=== PATIENT | male | born 1975 | race Caucasian/White ===

== ENCOUNTER 2019-10-04 15:04 | Emergency (ER) | payer SELFPAY ==
[2019-10-04 15:07] VITALS: BP 141/93; PULSE 87; RESP 16; TEMP 36.8; O2SAT 94
--- NOTE | 2019-10-04 15:13 | ED_ITS ---
Entered by Alison Banerjee, acting as scribe for Mary Cabrera MD HPI - Alcohol General: Chief Complaint: Alcohol Stated Complaint: ETOH Time Seen by Provider: 10/04/19 15:10 Source: EMS and RN notes reviewed Mode of arrival: EMS Limitations: altered mental status History of Present Illness: HPI narrative: 44 yo male presents to ED under the influence of alcohol. Per EMS, the patient called [facility] and he was referred here. The patient is not responding to any questions at this time (15:14). 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 Amount of alcohol consumed: unknown Associated symptoms: Deny abdominal pain, depression, nausea or vomiting Review of Systems Const: Denies: fever, chills, body aches or change in appetite Eyes: Denies: blurry vision or eye discomfort ENMT: Denies: throat pain or dental pain Card: Denies: chest pain Resp: Denies: shortness of breath GI: Denies: abdominal pain, nausea, vomiting or diarrhea : Denies: painful urination Musc: Denies: neck pain or back pain Skin/Breast: Denies: rash Neuro: Denies: headache Psych: Denies: depression Betito/Lymph: Denies: easy bruising All/Imm: Denies: hives PFSH ED PFSH: Statuses (acute, chronic, etc) shown below reflect problem list status as previously entered and may not be historically accurate Social History Smoking and tobacco status: current every day smoker Physical Exam Const: COMMON NORMALS: oriented x3 and healthy appearing OTHER: intoxicated HENMT: COMMON NORMALS: normocephalic and head/scalp atraumatic HEAD & SCALP: normocephalic and atraumatic Eye: COMMON NORMALS: PERRL and EOMs intact bilaterally PUPIL: Yes PERRL Neck/C-Spine: COMMON NORMALS: full ROM and supple Chest: COMMONS NORMALS: inspection of chest normal and palpation of chest normal Resp: COMMON NORMALS: normal respiratory effort, no retractions, no use of accessory muscles and clear to auscultation bilaterally AUSCULTATION: clear to auscultation bilaterally Cardio: COMMON NORMALS: regular rate, regular rhythm and no murmurs RATE: regular rate RHYTHM: regular rhythm GI: COMMON NORMALS: normal to inspection, nondistended, normoactive bowel sounds, soft to palpation, non-tender and no masses PALPATION: Yes soft Extremity: COMMON NORMALS: normal to inspection and full ROM Neuro: COMMON NORMALS: oriented x3, moves all extremities and no focal motor deficits Psych: OTHER: intoxicated Skin: COMMON NORMALS: no rashes or lesions noted and no wounds GENERAL SKIN EXAM: no rashes or lesions noted Course Vital Signs: Vital signs: Vital Signs Temperature 98.3 F 10/04/19 15:07 Pulse Rate 87 10/04/19 15:07 Respiratory Rate 16 10/04/19 15:07 Blood Pressure 141/93 10/04/19 15:07 Pulse Oximetry 94 10/04/19 15:07 MDM - Alcohol MDM Narrative: Medical decision making narrative: Patient presents here with alcohol intoxication. Patient is now awake and alert and able to ambulate without any difficulty. Patient is not suicidal or homicidal. Patient is stable for discharge at this time and is getting a taxi home Lab Data: Labs: Lab Results 10/04/19 10/04/19 Range/Units 15:22 15:22 WBC 7.9 (4.0-10.0) 10^3/ uL RBC 4.51 (4.1-5.3) 10^6/u L Hgb 13.4 (11.7-16.6) g/dL Hct 40.2 L (42.0-52.0) % MCV 89.1 (80-94) fL MCH 29.7 (28.0-34.0) pg MCHC 33.3 (30.0-36.0) g/dL RDW 15.3 H (12.1-15.1) % Plt Count 357 (130-400) 10^3/c mm MPV 9.3 (7.4-10.4) fL Neut % (Auto) 70.4 % Lymph % (Auto) 21.0 % [place] % (Auto) 7.4 % Eos % (Auto) 0.3 % Baso % (Auto) 0.8 % Neut # (Auto) 5.6 (1.8-7.7) 10^3/u L Lymph # (Auto) 1.7 (0.8-4.8) 10^3/u L [place] # (Auto) 0.6 (0.2-0.9) 10^3/u L Eos # (Auto) 0.0 (0.0-0.8) 10^3/u L Baso # (Auto) 0.1 (0.0-0.1) 10^3/u L Nucleated RBC % (a uto) 0 % Nucleated RBCs # 0.0 /100WBC Sodium 144 (136-145) mmol/L Potassium 3.5 (3.5-5.1) mmol/L Chloride 104 (98-107) mmol/L Carbon Dioxide 25 (22-29) mmol/L Anion Gap 18.5 (5-19) BUN 9 (6-20) mg/dL Creatinine 0.8 (0.7-1.2) mg/dL GFR Calculation 104.5 (90-130) mL/min Glucose 138 H (74-109) mg/dL Calcium 9.1 (8.5-10.5) mg/dL Total Bilirubin 0.2 (0.15-1.2) mg/dL AST 45 H (0-40) U/L ALT 24 (0-41) U/L Alkaline Phosphata se 88 (40-130) IU/L Total Protein 7.7 (6.6-8.7) g/dL Albumin 4.8 (3.5-5.2) g/dL Globulin 2.9 (1.3-4.6) g/dL Salicylates < 0.3 L (3-10) mg/dL Acetaminophen < 5.0 L (10-30) ug/mL Ethyl Alcohol 484 H* (0-10) mg/dL Discharge Plan Discharge Patient Disposition: Home, Self-Care Clinical Impression: Alcoholic intoxication Qualifiers: Complication of substance-induced condition: uncomplicated Qualified Code(s): F10.920 - Alcohol use, unspecified with intoxication, uncomplicated Condition: Stable Discharge Orders: Discharge Order (Routine); Ordered 10/04/19 Ordered By: Mary Cabrera Referrals: Mark Wong DO [Family Provider] - 4-7 days Discharge Diet: Advance as tolerated Discharge Activity: Resume usual activity Patient Instructions: Alcohol Intoxication (ED) Discharge Date/Time: 10/04/19 20:41 Coding Level of Care Code ED Show Girl for ruy Fermni The documentation recorded by the Chriss mcfarland Valerie R accurately reflects the service I personally performed and the decisions made by me, Mary Cabrera MD Oct 04, 2019 15:04
[2019-10-04 15:29] LABS: Basophils # 0.1 10^3/uL (0.0-0.1); Basophils % 0.8 %; Eosinophils % 0.3 %; Hematocrit 40.2 % (42.0-52.0); Hemoglobin 13.4 g/dL (11.7-16.6); Lymphocytes # 1.7 10^3/uL (0.8-4.8); Mean Corpuscular HGB Conc 33.3 g/dL (30.0-36.0); Mean Corpuscular Hemoglobin 29.7 pg (28.0-34.0); Mean Corpuscular Volume 89.1 fL (80-94); Mean Platelet Volume 9.3 fL (7.4-10.4); Monocytes # 0.6 10^3/uL (0.2-0.9); Monocytes % 7.4 %; Neutrophils # 5.6 10^3/uL (1.8-7.7); Neutrophils % 70.4 %; Nucleated Red Blood Cells % 0 %; Platelet Count 357 10^3/cmm (130-400); Red Blood Count 4.51 10^6/uL (4.1-5.3); Red Cell Distribution Width 15.3 % (12.1-15.1); White Blood Count 7.9 10^3/uL (4.0-10.0)
[2019-10-04 15:43] LABS: Acetaminophen < 5.0 ug/mL (10-30); Alanine Aminotransferase 24 U/L (0-41); Albumin Level 4.8 g/dL (3.5-5.2); Alcohol Level 484 mg/dL (0-10); Alkaline Phosphatase 88 IU/L (40-130); Anion Gap 18.5 (5-19); Aspartate Amino Transferase 45 U/L (0-40); Blood Urea Nitrogen 9 mg/dL (6-20); Calcium 9.1 mg/dL (8.5-10.5); Carbon Dioxide 25 mmol/L (22-29); Chloride 104 mmol/L (98-107); Globulin 2.9 g/dL (1.3-4.6); Glomerular Filtration Rate 104.5 mL/min (90-130); Glucose 138 mg/dL (74-109); Potassium 3.5 mmol/L (3.5-5.1); Salicylate < 0.3 mg/dL (3-10); Sodium 144 mmol/L (136-145); Total Bilirubin 0.2 mg/dL (0.15-1.2); Total Protein 7.7 g/dL (6.6-8.7)
== END 2019-10-04 20:41 | disposition home or self-care (01) ==
PROVIDERS: Emergency Provider Emergency Medicine; Family Provider Psychiatry & Neurology Psychiatry
DX: F10.120 Alcohol abuse with intoxication, uncomplicated (principal); Y90.8 Blood alcohol level of 240 mg/100 ml or more; F17.210 Nicotine dependence, cigarettes, uncomplicated
CPT/HCPCS: 36415; 80053; 80307; 85025; 99282

== ENCOUNTER 2019-10-06 13:43 | Inpatient (IN) | payer SELFPAY ==
[2019-10-06 13:43] VITALS: BP 139/94; PULSE 80; RESP 18; TEMP 36.8; O2SAT 94; BMI 24.3
--- NOTE | 2019-10-06 13:50 | ED_ITS ---
Entered by Heron Gauthier, acting as scribe for Jose Ramon Bhat DO Oct 06, 2019 13:43 HPI - Chest Pain General: Chief Complaint: Chest Pain Stated Complaint: chest pain Time Seen by Provider: 10/06/19 13:56 History of Present Illness: HPI narrative: 44 yo male presents with chest pain. Pt states that he woke up 3 hours ago with chest pain. Pt states that he hasn't had any heart issues that he knows of. Pt states that he has chills. Pt smells of alcohol. Pt states that his pain worsens with palpation. Pt states that he drinks about a half-pint of alcohol a day. Patient initially made no mention of it to myself when I was examining him however after he left the room and talking to the nurse he stated he wanted to kill himself had not really formulated a plan but stated if he did not get help he would come up with a plan. He did admit to the nurse as well that he drinks heavily stated he drank up to half of 1/5/day rather than a pint. MD complaint: chest pain Onset (ago): hour(s) (3) Timing of current episode: constant Prior episodes: No Onset: during rest Pain location: right chest Quality: tightness Exacerbating factors: palpation Associated symptoms: Reports dyspnea and palpitations; Deny abdominal pain, fever(s), nausea, syncope or vomiting Treatment prior to arrival: none Review of Systems Const: Denies: fever, chills, body aches, fatigue, malaise or night sweats Eyes: Denies: change in vision or blurry vision ENMT: Denies: throat pain, oral sores/lesions, dental pain, nasal discharge or nasal congestion Card: Reports: chest pain and palpitations; Denies: irregular heart rhythm, edema, syncope, shortness of breath on exertion, shortness of breath when lying down or leg pain with exertion Resp: Reports: shortness of breath; Denies: productive cough, non-productive cough or wheezing GI: Denies: abdominal pain, nausea, vomiting, vomiting blood, coffee grounds i n vomit, difficulty swallowing, heartburn/indigestion, diarrhea, constipation, cramping, blood in stool or black tarry stool : Denies: flank pain, difficulty urinating, painful urination, urinary frequency, urinary urgency, urinary incontinence or blood in urine Musc: Denies: neck pain, back pain, extremity pain, extremity swelling, joint pain or joint swelling Skin/Breast: Denies: rash, itching or redness Neuro: Reports: headache; Denies: numbness in extremities, weakness in extremities, changes in sensation, lack of coordination, difficulty walking, frequent falls, dizziness, vertigo or confusion Psych: Reports: anxiety and depression; Denies: loss of interest, visual hallucinations, auditory hallucinations, suicidal ideation or homicidal ideation Endo: Denies: excessive urination, excessive thirst, tired all the time or cold intolerance Bteito/Lymph: Denies: easy bruising, easy bleeding, petechiae, enlarged lymph nodes or tender lymph nodes PFSH ED PFSH: Statuses (acute, chronic, etc) shown below reflect problem list status as previously entered and may not be historically accurate Social History Smoking and tobacco status: current every day smoker Physical Exam Narrative: EXAM NARRATIVE: 44-year-old male smells strongly of alcohol anxious fidgety in the exam room Const: COMMON NORMALS: average body habitus, oriented x3 and alert GENERAL APPEARANCE: cooperative, comfortable, well kempt and well developed NUTRITIONAL APPEARANCE: not obese ORIENTATION/CONSCIOUSNESS: Yes awake, Yes oriented to person and Yes oriented to place HENMT: COMMON NORMALS: normocephalic, head/scalp atraumatic, EAC's normal, TM's normal bilaterally, external nose normal, moist oral mucous membranes and oropharynx normal HEAD & SCALP: normocephalic and atraumatic NOSE: external nose normal EXTERNAL AUDITORY CANAL: EAC's normal TYMPANIC MEMBRANE: TM's normal bilaterally MOUTH: oral and palatal mucosa normal, lip normal and tongue normal THROAT: posterior oropharynx normal and tonsils normal Eye: COMMON NORMALS: PERRL, EOMs intact bilaterally, conjunctivae normal and no scleral icterus CONJUNCTIVA: Yes conjunctivae normal PUPIL: Yes PERRL Neck/C-Spine: COMMON NORMALS: full ROM, no lymphadenopathy, supple, no meningeal signs and thyroid normal THYROID: thyroid normal and asymmetrical Lymph: LYMPHATIC: no lymphadenopathy noted Chest: CHEST: Yes tenderness Resp: COMMON NORMALS: normal respiratory effort, no retractions, no use of accessory muscles and clear to auscultation bilaterally AUSCULTATION: clear t o auscultation bilaterally Cardio: COMMON NORMALS: regular rate and regular rhythm RATE: regular rate RHYTHM: regular rhythm HEART SOUNDS: no murmurs GI: COMMON NORMALS: normal to inspection, nondistended, normoactive bowel sounds, soft to palpation and no hepatosplenomegaly PALPATION: Yes soft and Yes no hepatosplenomegaly : COMMON NORMALS: Yes no CVA tenderness BLADDER/KIDNEY EXAM: Yes no CVA tenderness Back/Pelvis: COMMON NORMALS: no CVA tenderness LUMBAR SPINE/LOWER BACK: Yes normal to inspection Extremity: COMMON NORMALS: no clubbing, cyanosis or edema, no calf tenderness and no pedal edema Neuro: COMMON NORMALS: oriented x3 SENSORIUM/ORIENTATION: Yes alert, Yes oriented to person and Yes oriented to place MENINGEAL SIGNS: Yes no meningeal signs Psych: APPEARANCE: Yes well kempt Skin: COMMON NORMALS: no rashes or lesions noted and skin turgor normal GENERAL SKIN EXAM: no rashes or lesions noted and turgor normal Course ED course: Initially patient's main complaint was chest pain after we seen him he said he actually it was more suicidal ideation labs reviewed discussed with the patient is acutely intoxicated discussed Dr. Hagan of go ahead and admit the patient. Vital Signs: Vital signs: Vital Signs Temperature 98.2 F 10/10/19 12:46 Pulse Rate 52 L 10/10/19 12:46 Respiratory Rate 18 10/10/19 12:46 Blood Pressure 112/74 10/10/19 12:46 Pulse Oximetry 96 10/10/19 12:46 MDM - Chest Pain Lab Data: Labs: Lab Results 10/06/19 10/06/19 10/06/19 Range/Units 13:30 13:30 13:30 WBC 4.7 (4.0-10.0) 10^3/ uL RBC 4.92 (4.1-5.3) 10^6/u L Hgb 14.8 (11.7-16.6) g/dL Hct 43.9 (42.0-52.0) % MCV 89.2 (80-94) fL MCH 30.1 (28.0-34.0) pg MCHC 33.7 (30.0-36.0) g/dL RDW 15.2 H (12.1-15.1) % Plt Count 387 (130-400) 10^3/c mm MPV 9.5 (7.4-10.4) fL Neut % (Auto) 65.5 % Lymph % (Auto) 24.8 % [place] % (Auto) 8.3 % Eos % (Auto) 0.4 % Baso % (Auto) 0.8 % Neut # (Auto) 3.1 (1.8-7.7) 10^3/u L Lymph # (Auto) 1.2 (0.8-4.8) 10^3/u L [place] # (Auto) 0.4 (0.2-0.9) 10^3/u L Eos # (Auto) 0.0 (0.0-0.8) 10^3/u L Baso # (Auto) 0.0 (0.0-0.1) 10^3/u L Nucleated RBC % (a uto) 0 % Nucleated RBCs # 0.0 /100WBC Sodium 139 (136-145) mmol/L Potassium 3.5 (3.5-5.1) mmol/L Chloride 96 L (98-107) mmol/L Carbon Dioxide 26 (22-29) mmol/L Anion Gap 20.5 H (5-19) BUN 11 (6-20) mg/dL Creatinine 0.8 (0.7-1.2) mg/dL GFR Calculation 104.5 (90-130) mL/min Glucose 130 H (74-109) mg/dL Calcium 9.7 (8.5-10.5) mg/dL Total Bilirubin 0.3 (0.15-1.2) mg/dL AST 102 H (0-40) U/L ALT 45 H (0-41) U/L Alkaline Phosphata se 100 (40-130) IU/L Troponin T Baselin e 8 (0-15) ng/mL Troponin T 120 Min [place] (0-15) ng/mL Delta Troponin T (0-10) ABS# Total Protein 8.7 (6.6-8.7) g/dL Albumin 4.6 (3.5-5.2) g/dL Globulin 4.1 (1.3-4.6) g/dL Lipase 36 (13-60) U/L Salicylates (3-10) mg/dL Acetaminophen (10-30) ug/mL Ethyl Alcohol 333 H* (0-10) mg/dL 10/06/19 10/06/19 Range/Units 13:30 15:28 WBC (4.0-10.0) 10^3/ uL RBC (4.1-5.3) 10^6/u L Hgb (11.7-16.6) g/dL Hct (42.0-52.0) % MCV (80-94) fL MCH (28.0-34.0) pg MCHC (30.0-36.0) g/dL RDW (12.1-15.1) % Plt Count (130-400) 10^3/c mm MPV (7.4-10.4) fL Neut % (Auto) % Lymph % (Auto) % [place] % (Auto) % Eos % (Auto) % Baso % (Auto) % Neut # (Auto) (1.8-7.7) 10^3/u L Lymph # (Auto) (0.8-4.8) 10^3/u L [place] # (Auto) (0.2-0.9) 10^3/u L Eos # (Auto) (0.0-0.8) 10^3/u L Baso # (Auto) (0.0-0.1) 10^3/u L Nucleated RBC % (a uto) % Nucleated RBCs # /100WBC Sodium (136-145) mmol/L Potassium (3.5-5.1) mmol/L Chloride (98-107) mmol/L Carbon Dioxide (22-29) mmol/L Anion Gap (5-19) BUN (6-20) mg/dL Creatinine (0.7-1.2) mg/dL GFR Calculation (90-130) mL/min Glucose (74-109) mg/dL Calcium (8.5-10.5) mg/dL Total Bilirubin (0.15-1.2) mg/dL AST (0-40) U/L ALT (0-41) U/L Alkaline Phosphata se (40-130) IU/L Troponin T Baselin e (0-15) ng/mL Troponin T 120 Min [place] 9.69 (0-15) ng/mL Delta Troponin T 1.69 (0-10) ABS# Total Protein (6.6-8.7) g/dL Albumin (3.5-5.2) g/dL Globulin (1.3-4.6) g/dL Lipase (13-60) U/L Salicylates < 0.3 L (3-10) mg/dL Acetaminophen < 5.0 L (10-30) ug/mL Ethyl Alcohol (0-10) mg/dL Discharge Plan Discharge Patient Disposition: Admitted As Inpatient Admit Provider: Hector Hagan Clinical Impression: Suicidal ideation, Alcoholic intoxication, Atypical chest pain Condition: Stable Discharge Orders: Discharge Order (Routine); Ordered 10/10/19 Ordered By: Hector Hagan Referrals: Mark Wong DO [Family Provider] - Discharge Diet: Regular Discharge Activity: Resume usual activity Additional Instructions: Follow-up with an outpatient mental health provider of choice within 3-5 days of discharge, if possible and if interested. Possible resource: [facility] ([facility]) [address] [facility] [address] [place] [address] Possible resource for substance abuse treatment: [facility] ([facility]) [address] [place] [address] [facility] Meeting Schedule [address] [place], [place] Friday, Friday, Friday, Friday at [address] behind [facility] next to [employer] . at 7 p.m. Discharge Date/Time: 10/06/19 19:55 Coding Level of Care Code ED Specialist Wound Care for Chg Fwd Exam Problem Focused The documentation recorded by the Abrahan mcfarland Kialy, accurately reflects the service I personally performed and the decisions made by , Jose Ramon Bhat DO Oct 06, 2019 13:43
--- NOTE | 2019-10-06 13:59 | ECG_ITS ---
Measurements Intervals [place] Rate: 72 P: 39 [place]: 176 QRS: 25 QRSD: 98 T: 73 QT: 381 QTc: 417 SINUS RHYTHM WITH OCCASIONAL VENTRICULAR PREMATURE COMPLEXES Compared to ECG 08/22/2015 22:29:45 Ventricular premature complex(es) now present T-wave abnormality no longer present Electronically Signed On 10-06-2019 18:34:02 NEWSPAPER COPY EDITOR by Dee Collins M.D. [email or web address]
--- NOTE | 2019-10-06 14:01 | XRR_ITS ---
PROCEDURE INFORMATION: Exam: XR Chest, 1 View Exam date and time: 10/06/2019 2:30 PM Age: 44 years old Clinical indication: Chest pain; Type not specified; Additional info: Dyspnea TECHNIQUE: Imaging protocol: XR of the chest Views: 1 view. COMPARISON: No relevant prior studies available. FINDINGS: Lungs: Unremarkable. No consolidation. Pleural space: Unremarkable. No pleural effusion. No pneumothorax. Heart/Mediastinum: Unremarkable. No cardiomegaly. Bones/joints: No acute findings. XR/XR chest 1V portable [id number] IMPRESSION: No acute findings.
[2019-10-06 14:13] LABS: Basophils % 0.8 %; Eosinophils % 0.4 %; Hematocrit 43.9 % (42.0-52.0); Hemoglobin 14.8 g/dL (11.7-16.6); Lymphocytes # 1.2 10^3/uL (0.8-4.8); Lymphocytes % 24.8 %; Mean Corpuscular HGB Conc 33.7 g/dL (30.0-36.0); Mean Corpuscular Hemoglobin 30.1 pg (28.0-34.0); Mean Corpuscular Volume 89.2 fL (80-94); Mean Platelet Volume 9.5 fL (7.4-10.4); Monocytes # 0.4 10^3/uL (0.2-0.9); Monocytes % 8.3 %; Neutrophils # 3.1 10^3/uL (1.8-7.7); Neutrophils % 65.5 %; Nucleated Red Blood Cells % 0 %; Platelet Count 387 10^3/cmm (130-400); Red Blood Count 4.92 10^6/uL (4.1-5.3); Red Cell Distribution Width 15.2 % (12.1-15.1); White Blood Count 4.7 10^3/uL (4.0-10.0)
[2019-10-06 14:43] LABS: Alanine Aminotransferase 45 U/L (0-41); Albumin Level 4.6 g/dL (3.5-5.2); Alkaline Phosphatase 100 IU/L (40-130); Anion Gap 20.5 (5-19); Aspartate Amino Transferase 102 U/L (0-40); Blood Urea Nitrogen 11 mg/dL (6-20); Calcium 9.7 mg/dL (8.5-10.5); Carbon Dioxide 26 mmol/L (22-29); Chloride 96 mmol/L (98-107); Globulin 4.1 g/dL (1.3-4.6); Glomerular Filtration Rate 104.5 mL/min (90-130); Glucose 130 mg/dL (74-109); Lipase 36 U/L (13-60); Potassium 3.5 mmol/L (3.5-5.1); Sodium 139 mmol/L (136-145); Total Bilirubin 0.3 mg/dL (0.15-1.2); Total Protein 8.7 g/dL (6.6-8.7)
[2019-10-06 14:44] LABS: Troponin(5th) Baseline 8 ng/mL (0-15)
[2019-10-06 14:52] VITALS: BP 110/89; PULSE 75; O2SAT 94
[2019-10-06 14:53] LABS: Alcohol Level 333 mg/dL (0-10)
--- NOTE | 2019-10-06 14:54 | PC.NURSE ---
Pt ambulated to the rest room. Did not tolerate well. Pt stated she felt like she was about to faint upon return to pt room.
--- NOTE | 2019-10-06 14:54 | PC.NURSE ---
ETOH level 333
[2019-10-06 15:36] LABS: Acetaminophen < 5.0 ug/mL (10-30); Salicylate < 0.3 mg/dL (3-10)
--- NOTE | 2019-10-06 15:59 | ECG_ITS ---
Measurements Intervals [place] Rate: 72 P: 50 DE: 171 QRS: 6 QRSD: 96 T: 68 QT: 386 QTc: 423 SINUS RHYTHM WITH OCCASIONAL VENTRICULAR PREMATURE COMPLEXES NONSPECIFIC T-WAVE ABNORMALITY Compared to ECG 08/22/2015 22:29:45 Ventricular premature complex(es) now present T-wave abnormality still present Electronically Signed On 10-06-2019 18:38:24 SENIOR FORMULATION SCIENTIST by Dee Collins M.D. [email or web address]
[2019-10-06 16:09] LABS: Troponin 5 2HR 9.69 ng/mL (0-15); Troponin 5 2HR Delta 1.69 ABS# (0-10)
[2019-10-06 19:31] VITALS: BP 121/74; PULSE 84; RESP 16; TEMP 36.8; O2SAT 95
[2019-10-06 19:48] LABS: Troponin 5 6HR 8.91 ng/L (0-15); Troponin 5 6HR Delta 0.91 ng/L (0-12)
[2019-10-06 20:59] VITALS: BP 135/93; PULSE 87; RESP 23; TEMP 37.1; O2SAT 97
[2019-10-07 05:56] VITALS: BP 135/87; PULSE 55; RESP 16; TEMP 36.9; O2SAT 97
[2019-10-07] MEDS: folic acid 1 mg Tablet PO (08:22)
[2019-10-07] MEDS: multivitamin therapeutic Tablet 1 TAB PO (08:22)
[2019-10-07] MEDS: thiamine 100 mg Tablet PO (08:22)
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
[2019-10-07 13:35] VITALS: BP 131/79; PULSE 64; RESP 18; TEMP 36.9; O2SAT 97
[2019-10-07] MEDS: ondansetron 4 MG Tablet PO (14:11)
--- NOTE | 2019-10-07 14:11 | PC.NURSE ---
PRN ZOFRAN 4 MG GIVEN PO PER PT C/O NAUSEA. WILL CONT TO MONITOR.
--- NOTE | 2019-10-07 16:23 | PC.NURSE ---
PRN ZOFRAN EFFECTIVE NO FURTHER C/O NAUSEA
[2019-10-07] MEDS: citalopram 20 mg Tablet PO (17:20)
[2019-10-07] MEDS: nicotine 2 mg Gum BUCCAL (17:31)
[2019-10-07 20:20] VITALS: BP 125/73; PULSE 64; RESP 18; TEMP 36.9; O2SAT 98
[2019-10-08 06:00] VITALS: BP 147/80; PULSE 65; RESP 19; TEMP 36.8; O2SAT 97
[2019-10-08] MEDS: acetaminophen 325 mg Tablet 650 MG PO ×3 (07:24→20:22)
[2019-10-08] MEDS: citalopram 20 mg Tablet PO (08:42)
[2019-10-08] MEDS: folic acid 1 mg Tablet PO (08:43)
[2019-10-08] MEDS: multivitamin therapeutic Tablet 1 TAB PO (08:43)
[2019-10-08] MEDS: thiamine 100 mg Tablet PO (08:43)
[2019-10-08] MEDS: nicotine 2 mg Gum BUCCAL (13:08)
[2019-10-08 14:00] VITALS: BP 123/68; PULSE 66; RESP 20; TEMP 37; O2SAT 90
--- NOTE | 2019-10-08 14:07 | PM.NPN ---
Subjective NPU Subjective: Interval history: He presents today reporting that he feels a little less shaky. He reports that the medication is helping and he continues to be focused on adjustment in his father and now he's talking about outpatient services through [facility] or some other program while he gets back to work. We did have a significant discussion about that plan and the risk of losing one sobriety when the focus taken off of the addiction this early in recovery at this point he reports a desire to possibly discharge, stated of family member or friend while he is waiting on a check. In going back to work as absolutely sent as possible. We discussed some concerns and the risk benefits and alternatives and he is continuing to attempts to explore what is in his own best interests. We discussed the possibility of changing his sleeping medication if he does not have effective sleep tonight. Mental Status Exam MSE Comments: This is a well-nourished well-developed white male with adequate dress, grooming and eye contact. No abnormal movements except for mild psychomotor retardation. Cooperative with exam in no acute distress. Speech was decreased rate and volume. Mood described as getting better, affect congruent. Thought process organized. Thought content: Patient denied any suicidal or homicidal ideation, there were no delusions reported or noted, he denied any auditory or visual hallucinations. Attention and concentration were intact and memory appeared unreliable secondary to intoxication but none were formally tested. He is alert and oriented ?3. Insight and judgment appear fair. Vitals/I&O/Wt Last Vital Signs Temperature 98.1, pulse 71, respirations 18, pulse ox 98%, blood pressure 126/66. Data NPU : 10/06/19 13:30 10/06/19 13:30 A&P Additional A&P Information This is a 44-year-old white male with a long history of depression and anxiety with intermixed cannabis and alcohol use with no recent cannabis use but significant intoxication and alcohol use with significant consequences recently who presents with resolving intoxication and openness to resumption of mental health treatment and follow-up with drug and alcohol rehabilitation. 1. Continue current medication. 2. Continue the CIWA protocol. 3. Consider naltrexone prior to discharge. 4. Encourage individual, group and milieu therapy. 5. Continue every 15 minute checks for safety. 6. Work with Hector to get connected with an inpatient rehabilitation as available. (2) Anxiety disorder, unspecified: Involuntary Hold Information 96 Hour Hold: 96 Hour Involuntary Admission: Yes 96 Hour Hold Ending Date: 10/12/19 96 Hour Hold Ending Time: 15:57 Attestations NPU Medical Necessity Statement*: Inpatient hospitalization medically necessary and the clinically appropriate intervention at this time. We will monitor medications and titrate to effect. Likely length of stay 1-3 days. Coding Level of Care Code Acute Travel Registered Nurse Nicu for Abisai Fermin
[2019-10-08 19:48] VITALS: BP 126/66; PULSE 71; RESP 18; TEMP 36.7; O2SAT 98
[2019-10-08] MEDS: mirtazapine 30 mg Tablet PO (20:43)
[2019-10-09 05:36] VITALS: BP 117/73; PULSE 56; RESP 18; TEMP 36.6; O2SAT 96
--- NOTE | 2019-10-09 08:08 | PC.NURSE ---
Nursing Note. random safety inspection completed of patients room this morning. No contraband found.
[2019-10-09] MEDS: thiamine 100 mg Tablet PO (08:33)
[2019-10-09] MEDS: folic acid 1 mg Tablet PO (08:33)
[2019-10-09] MEDS: multivitamin therapeutic Tablet 1 TAB PO (08:33)
[2019-10-09] MEDS: citalopram 20 mg Tablet PO (08:33)
--- NOTE | 2019-10-09 10:33 | PC.NURSE ---
NURSES NOTE; CLIENT IN DAYROOM PARTICIPATING IN GROUP.
[2019-10-09 13:27] VITALS: BP 117/76; PULSE 75; RESP 18; TEMP 36.7
[2019-10-09] MEDS: acetaminophen 325 mg Tablet 650 MG PO (15:17)
--- NOTE | 2019-10-09 17:13 | PM.NPN ---
Subjective NPU Subjective: Interval history: Westley presents today continuing to move in the direction away from intense aftercare and more towards work in trying to fix his broken relationships. Long conversation about how the most important focus for home if his recovery and that he sober and re-connecting with the aspects of his life that are necessary for success yet is able fall into place. His request is for discharge at this point we discussed the risks benefits and alternatives of this decision and he understood and agreed to likely discharge tomorrow. Mental Status Exam MSE Comments: This is a well-nourished well-developed white male with adequate dress, grooming and eye contact. No abnormal movements except for resolving mild psychomotor retardation. Cooperative with exam in no acute distress. Speech was more normal rate and volume. Mood described as much better, affect congruent. Thought process organized. Thought content: Patient denied any suicidal or homicidal ideation, there were no delusions reported or noted, he denied any auditory or visual hallucinations. Attention and concentration were intact and memory appeared more reliable but none were formally tested. He is alert and oriented ?3. Insight and judgment appear fair. Vitals/I&O/Wt Last Vital Signs Temp 98.1 F 10/09/19 13:27 Pulse 75 10/09/19 13:27 Resp 18 10/09/19 13:27 BP 117/76 10/09/19 13:27 Pulse Ox 96 10/09/19 05:36 Data NPU : 10/06/19 13:30 10/06/19 13:30 A&P Additional A&P Information This is a 44-year-old white male with a long history of depression and anxiety with intermixed cannabis and alcohol use with no recent cannabis use but significant intoxication and alcohol use with significant consequences recently who presents with resolving intoxication and openness to resumption of mental health treatment and follow-up with drug and alcohol rehabilitation. 1. Continue current medication. 2 start naltrexone 50 mg by mouth daily 4. Encourage individual, group and milieu therapy. 5. Continue every 15 minute checks for safety. 6. Work with Hectro to get connected with an outpatient drug and alcohol/sober living resources. Involuntary Hold Information 96 Hour Hold: 96 Hour Involuntary Admission: Yes 96 Hour Hold Ending Date: 10/12/19 96 Hour Hold Ending Time: 15:57 Attestations NPU Medical Necessity Statement*: Inpatient hospitalization is medically necessary and the clinically appropriate intervention at this time. We will initiating medications and monitor and titrate to effect. Tentative plan for discharge tomorrow. Likely length of stay 1-2 days. Coding Level of Care Code Acute Station Gateman for Abisai Fermin
[2019-10-09] MEDS: nicotine 2 mg Gum BUCCAL (19:20)
[2019-10-09 19:54] VITALS: BP 120/78; PULSE 73; RESP 18; TEMP 36.4; O2SAT 98
[2019-10-09] MEDS: mirtazapine 30 mg Tablet PO (21:01)
[2019-10-09] MEDS: naltrexone hcl 50 mg Tablet PO (21:01)
[2019-10-09] MEDS: doxepin 10 mg Capsule PO (21:01)
[2019-10-10 06:00] VITALS: BP 112/74; PULSE 52; RESP 18; TEMP 36.8; O2SAT 96
[2019-10-10] MEDS: multivitamin therapeutic Tablet 1 TAB PO (09:16)
[2019-10-10] MEDS: naltrexone hcl 50 mg Tablet PO (09:16)
[2019-10-10] MEDS: folic acid 1 mg Tablet PO (09:16)
[2019-10-10] MEDS: citalopram 20 mg Tablet PO (09:16)
[2019-10-10] MEDS: thiamine 100 mg Tablet PO (09:40)
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
[2019-10-10 12:46] VITALS: BP 112/74; PULSE 52; RESP 18; TEMP 36.8; O2SAT 96
== END 2019-10-10 13:07 | disposition home or self-care (01) | DRG 881 ==
LOC: ER 15:28 → NP 16:41
PROVIDERS: Admitting Provider Psychiatry & Neurology Psychiatry; Emergency Provider Family Medicine; Family Provider Psychiatry & Neurology Psychiatry; Visit Provider Psychiatry & Neurology Psychiatry
DX: F32.9 Major depressive disorder, single episode, unspecified (principal); R45.851 Suicidal ideations; F41.9 Anxiety disorder, unspecified; F17.210 Nicotine dependence, cigarettes, uncomplicated; Z88.0 Allergy status to penicillin; F12.90 Cannabis use, unspecified, uncomplicated; F10.129 Alcohol abuse with intoxication, unspecified; R07.89 Other chest pain; Z79.899 Other long term (current) drug therapy
CPT/HCPCS: 12345; 36415; 71045; 80053; 80307; 83690; 84484; 85025; 93005; 99282; Q0162

== ENCOUNTER 2023-04-22 14:01 | Emergency (ER) | payer OTHER, MEDICAID, SELFPAY ==
--- NOTE | 2023-04-22 | CT_ITS ---
WS: [id number] CT HEAD NONCONTRAST HISTORY: SYMPTOMS OF ACUTE STROKE TECHNIQUE: Contiguous axial imaging performed through the brain in 2.5 mm imaging. Bone and soft tiss ue windows. Sagittal and coronal reformats reviewed. All CT scans at [facility] use at least one of these dose optimization techniques: automated exposure control; mA and/or kV adjustment per pa tient size (includes targeted exams where dose is matched to clinical indication); or iterative recon struction. DLP: 1127.05 mGy COMPARISON: None available. No acute intracranial hemorrhage, midline shift or mass effect. Mild symmetric cerebellar and cerebral atrophy with minimal small vessel ischemic disease. Ventricles: Normal size with no hydrocephalus. No inferior displacement of the cerebellar tonsils. Paranasal sinuses: As visualized are clear. Mastoid air cells: Well pneumatized. Calvarium and scalp: Skull is intact with no soft tissue edema or swelling. IMPRESSION: 1. No acute intracranial hemorrhage or edema. 2. Mild atrophy and small vessel ischemic disease. Notified Jose Ramon Bhat DO at 04/22/2023 2:31 PM.
[2023-04-22 14:10] VITALS: BP 146/107; PULSE 104; RESP 18; TEMP 36.9; O2SAT 94
--- NOTE | 2023-04-22 14:10 | ECG_ITS ---
[facility] Test Date: 2023-04-22 Pat Name: Hector Hunter Department: Room: Gender: Male [employer] Admissions Representative: : 1975 Requested By: Jose Ramon Koroma Order Number: [id number] Jeremy MD: Tracy Putnam M.D. Measurements Intervals Cecil Rate: 92 P: 52 MI: 175 QRS: 29 QRSD: 96 T: 67 QT: 335 QTc: 414 Interpretive Statements SINUS RHYTHM SEPTAL MYOCARDIAL INFARCTION , OF INDETERMINATE AGE [40+ ms Q WAVE IN V1/V2] Compared to ECG 10/06/2019 16:44:07 Myocardial infarct finding now present Ventricular premature complex(es) no longer present T-wave abnormality no longer present Electronically Signed On 04-22-2023 16:58:24 CDT by Tracy Putnam M.D. [email or web address] [email or web address]/store/[id number]
--- NOTE | 2023-04-22 14:12 | W.ED.NEUROSD ---
HPI - Neuro Symptoms/Deficit General: Chief Complaint: Neuro Symptoms/Deficit Stated Complaint: Stroke Alert Time Seen by Provider: 04/22/23 14:08 Source: patient and EMS Mode of arrival: EMS History of Present Illness: 47-year-old male presents to the emergency room via EMS as a stroke alert. A friend found him to reporting he seemed to be altered have right-sided weakness for 2 and half hours prior to calling EMS they were 30 minutes arriving here from the scene. On arrival here he has no facial asymmetry equal movements of the arms and legs. After initially denying any alcohol use he admits to having been drinking today heavily. Patient smells strongly of alcohol. He has a strong history of alcohol abuse in the past. CT done initially on arrival did not show any acute changes. Dr. Christian is present in the department seeing the patient immediately upon his return to the ED. Onset (ago): hour(s) (3) Time: 14:02 Last Observed Normal: 11:00 Timing confirmed by: other (Friend via EMS) Location: speech Severity: mild Relieving factors: none Exacerbating factors: none Associated symptoms: Deny chest pain, cough, diaphoresis, fevers/chills, headache(s), anorexia, malaise, nausea, seizures, short of breath, syncope, tingling, vertigo, vomiting or weakness Review of Systems Const: Reports: fatigue; Denies: fever(s), chills, malaise or diaphoresis Eyes: Reports: blurry vision Card: Denies: chest pain or syncope Resp: Denies: dyspnea, productive cough or non-productive cough GI: Denies: nausea or vomiting : Denies: flank pain, dysuria, urinary frequency or urinary urgency Skin/Breast: Denies: rash or pruritus Neuro: Denies: headache(s) or vertigo PFS ED PFSH: Social History Smoking and tobacco status: current every day smoker NIH stroke score NIHSS: Level Of Consciousness - 1a: 0 Level Of Consciousness Questions - 1b: One Correct (Believed to be due to alcohol use) Level Of Consciousness Commands - 1c: Both Correct Best Gaze - 2: Normal Visual Massey - 3: No Visual Loss Facial Palsy - 4: Normal Motor Arm Right - 5: No Drift Motor Arm Left - 5: No Drift Motor Leg Right - 6: No Drift Motor Leg Left - 6: No Drift Limb Ataxia - 7: Present In Two Limbs (Believed to be due to alcohol use) Sensory - 8: Normal Best Language - 9: No Aphasia Dysarthia - 10: Mild/Moderate Dysarthia (Believed to be due to alcohol use) Extinction And Inattention - 11: 0 Score: Total Score: 4 Physical Exam Const: COMMON NORMALS: no acute distress GENERAL APPEARANCE: cooperative and comfortable ORIENTATION/CONSCIOUSNESS: Yes awake HENMT: COMMON NORMALS: normocephalic, atraumatic and hearing grossly normal bilaterally HEAD & SCALP: normocephalic and atraumatic Resp: COMMON NORMALS: normal respiratory effort, No retractions, No use of accessory muscles and clear to auscultation bilaterally AUSCULTATION: clear to auscultation bilaterally Cardio: COMMON NORMALS: regular rate, regular rhythm and No murmurs present (Cardio) RATE: regular rate RHYTHM: regular rhythm GI: COMMON NORMALS: Soft to palpation and No hepatosplenomegaly present AUSCULTATION: Yes normoactive bowel sounds PALPATION: Yes Soft to palpation, No Tenderness to palpation present (GI), No Guarding due to palpation present (GI) and Yes No hepatosplenomegaly present Extremity: COMMON NORMALS: normal to inspection, capillary refill normal, no clubbing, cyanosis or edema, no calf tenderness and no pedal edema Skin: COMMON NORMALS: no rashes or lesions noted GENERAL SKIN EXAM: no rashes or lesions noted Course Vital Signs: Vital signs: Vital Signs Temperature 98.5 F 04/22/23 14:10 Pulse Rate 104 H 04/22/23 14:10 Respiratory Rate 18 04/22/23 14:10 Blood Pressure 146/107 04/22/23 14:10 Pulse Oximetry 94 04/22/23 14:10 Oxygen Delivery Me thod Room Air 04/22/23 14:10 MDM - Neuro Symptoms/Deficit Medical Decision Making Patient acutely intoxicated to the extent he has a stroke score it is mostly due to his alcohol use. He is well versed in ER visits related to his alcohol use and specifically requested thiamine and Ativan on arrival. CT of his head was negative we will discharge patient home were working on finding friends or family to give him a ride back home for his next of kin contact declined to assist. We will give him a banana bag while we are working on finding transportation arrangements. Encouraged alcohol abstinence. Patient's response indicates low probability of this. Medical Records I reviewed the patient's medical records. Lab Data I reviewed the patient's lab results. 04/22/23 14:12 04/22/23 14:12 Laboratory Results WBC 4.8 10^3/uL (4.0-10.0) 04/22/23 14:12 RBC 4.36 10^6/uL (4.1-5.3) 04/22/23 14:12 Hgb 12.9 g/dL (11.7-16.6) 04/22/23 14:12 Hct 39.5 % (42.0-52.0) L 04/22/23 14:12 MCV 90.6 fl (80-94) 04/22/23 14:12 MCH 29.6 pg (28.0-34.0) 04/22/23 14:12 MCHC 32.7 g/dL (30.0-36.0) 04/22/23 14:12 RDW 14.8 % (12.1-15.1) 04/22/23 14:12 Plt Count 401 10^3/cmm (130-400) H 04/22/23 14:12 MPV 9.0 fL (7.4-10.4) 04/22/23 14:12 Neut % (Auto) 59.5 % 04/22/23 14:12 Lymph % (Auto) 25.6 % 04/22/23 14:12 Sevier % (Auto) 7.8 % 04/22/23 14:12 Eos % (Auto) 5.0 % 04/22/23 14:12 Baso % (Auto) 1.9 % 04/22/23 14:12 Neut # (Auto) 2.84 10^3/uL (1.8-7.7) 04/22/23 14:12 Lymph # (Auto) 1.2 10^3/uL (0.8-4.8) 04/22/23 14:12 Sevier # (Auto) 0.4 10^3/uL (0.2-0.9) 04/22/23 14:12 Eos # (Auto) 0.2 10^3/uL (0.0-0.8) 04/22/23 14:12 Baso # (Auto) 0.1 10^3/uL (0.0-0.1) 04/22/23 14:12 Nucleated RBC % (auto) 0 % 04/22/23 14:12 Nucleated RBCs # 0.0 /100WBC 04/22/23 14:12 PT 12.50 SECONDS (12.1-14.9) 04/22/23 14:12 INR 0.90 (0.8-1.2) 04/22/23 14:12 APTT 27.0 SECONDS (23.9-36.7) 04/22/23 14:12 Sodium 146 mmol/L (136-145) H 04/22/23 14:12 Potassium 4.2 mmol/L (3.5-5.1) 04/22/23 14:12 Chloride 107 mmol/L (98-107) 04/22/23 14:12 Carbon Dioxide 26 mmol/L (22-29) 04/22/23 14:12 Anion Gap 17.2 (5-19) 04/22/23 14:12 BUN 15 mg/dL (6-20) 04/22/23 14:12 Creatinine 0.9 mg/dL (0.7-1.2) 04/22/23 14:12 GFR Calculation 90.1 mL/min (90-130) 04/22/23 14:12 Glucose 112 mg/dL (65-115) 04/22/23 14:12 POC Glucose 115 mg/dL (70-110) H 04/22/23 14:08 Calculated Osmolality 304 mOsm/kg (285-295) H 04/22/23 14:12 Calcium 8.7 mg/dL (8.5-10.5) 04/22/23 14:12 Total Bilirubin 0.2 mg/dL (0.15-1.2) 04/22/23 14:12 AST 28 U/L (0-40) 04/22/23 14:12 ALT 18 U/L (0-41) 04/22/23 14:12 Alkaline Phosphatase 86 U/L (40-130) 04/22/23 14:12 Total Protein 6.7 g/dL (6.6-8.7) 04/22/23 14:12 Albumin 4.3 g/dL (3.5-5.2) 04/22/23 14:12 Globulin 2.4 g/dL (1.3-4.6) 04/22/23 14:12 Ethyl Alcohol 391 mg/dL (0-10) H* 04/22/23 14:12 Discharge Plan Discharge Patient Disposition: Home Clinical Impression: Acute alcohol intoxication, Alcohol use disorder Condition: Stable Prescriptions: No Action naltrexone 50 mg tablet 50 mg PO DAILY hydroxyzine pamoate 50 mg capsule 50 mg PO QID PRN (Reason: Anxiety) pantoprazole 40 mg tablet,delayed release (DR/EC) 40 mg PO BID zolpidem 5 mg tablet 5 mg PO BEDTIME PRN (Reason: Sleep) mirtazapine 15 mg tablet 15 mg PO BEDTIME gabapentin 100 mg capsule 100 mg PO TID ondansetron 4 mg tablet,disintegrating 4 mg PO Q6H PRN (Reason: Nausea And Vomiting) Vitamin Plus Low Iron 27 mg iron- 1 mg tablet 1 tab PO DAILY Discharge Orders: Discharge ED (Routine); Ordered 04/22/23 Ordered By: Jose Ramon Bhat Referrals: Mark Wong DO [Primary Care Provider] - Discharge Diet: Usual diet Discharge Activity: Increase activity as tolerated Patient Instructions: Abuse of Alcohol (ED), Opioid Safety, Pain Management Activity Restrictions/Additional Instructions: Abstain from alcohol. Coding Level of Care Code ED Supervisor [employer] for Abisai Fermin
[2023-04-22 14:21] LABS: Basophils # 0.1 10^3/uL (0.0-0.1); Basophils % 1.9 %; Eosinophils # 0.2 10^3/uL (0.0-0.8); Hematocrit 39.5 % (42.0-52.0); Hemoglobin 12.9 g/dL (11.7-16.6); Lymphocytes # 1.2 10^3/uL (0.8-4.8); Lymphocytes % 25.6 %; Mean Corpuscular HGB Conc 32.7 g/dL (30.0-36.0); Mean Corpuscular Hemoglobin 29.6 pg (28.0-34.0); Mean Corpuscular Volume 90.6 fl (80-94); Monocytes # 0.4 10^3/uL (0.2-0.9); Monocytes % 7.8 %; Neutrophils # 2.84 10^3/uL (1.8-7.7); Neutrophils % 59.5 %; Nucleated Red Blood Cells % 0 %; Platelet Count 401 10^3/cmm (130-400); Red Blood Count 4.36 10^6/uL (4.1-5.3); Red Cell Distribution Width 14.8 % (12.1-15.1); White Blood Count 4.8 10^3/uL (4.0-10.0)
[2023-04-22] MEDS: LORazepam 2 mg/mL INJ 1 mL IVP (14:26)
[2023-04-22 14:45] LABS: Alanine Aminotransferase 18 U/L (0-41); Albumin Level 4.3 g/dL (3.5-5.2); Alkaline Phosphatase 86 U/L (40-130); Aspartate Amino Transferase 28 U/L (0-40); Blood Urea Nitrogen 15 mg/dL (6-20); Calcium 8.7 mg/dL (8.5-10.5); Carbon Dioxide 26 mmol/L (22-29); Chloride 107 mmol/L (98-107); Globulin 2.4 g/dL (1.3-4.6); Glomerular Filtration Rate 90.1 mL/min (90-130); Glucose 112 mg/dL (65-115); Osmolality Calculated 304 mOsm/kg (285-295); Sodium 146 mmol/L (136-145); Total Bilirubin 0.2 mg/dL (0.15-1.2); Total Protein 6.7 g/dL (6.6-8.7)
[2023-04-22 14:46] LABS: Alcohol Level 391 mg/dL (0-10)
[2023-04-22 14:47] LABS: Anion Gap 17.2 (5-19); Potassium 4.2 mmol/L (3.5-5.1)
--- NOTE | 2023-04-22 15:18 | PC.PHAR ---
pt unable to verify medications-medications entered are what ext shows has been filled recently-
--- NOTE | 2023-04-22 15:21 | PM.CONSULT ---
Providers/Reason For Consult Consulting Physician/Specialty*: Andrés Christian MD neurology and epilepsy Reason for Consult*: Code stroke emergency room bed #12 History of Present Illness History of Present Illness Hector Hunter is a 47 year old male with a history of alcohol abuse. Patient reports that he drank 1/5 and a half of hard liquor on 04/21/2023. Today the patient stated that he experienced acute onset of right sided numbness involving his face arm and leg with trouble speaking. The onset of his symptoms was reported to be 2-1/2 hours prior to presenting to the [facility] emergency room. In the emergency room the patient reported resolution of his symptoms. Blood sugar performed by EMS was 169 blood sugar in the [facility] emergency room was 115. In the emergency room the patient was dysarthric but his symptoms were suggestive of alcohol intoxication. Noncontrast head CT scan was obtained and revealed no acute findings. Neurological examination was obtained and NIH score =1 secondary to dysarthria which clinically was suggestive of alcohol intoxication. Therefore, patient was not a candidate for tPA and no tPA was administered. Initially the patient denied drinking alcohol but then later he admitted that he drinks alcohol. He also reports that he smokes at least 1/2 pack/day. The patient denied being on any medications. Past medical history: Alcohol abuse Drug allergies: Amoxicillin which resulted in a rash Current outpatient medications: Neurontin 100 mg p.o. 3 times daily Hydroxyzine 50 mg p.o. 4 times daily as needed Mirtazapine 15 mg p.o. nightly Naltrexone 50 mg p.o. daily Zofran 4 mg p.o. every 6 hours as needed nausea vomiting Protonix 40 mg p.o. twice daily vitamin plus low iron 1 p.o. daily Ambien 5 mg p.o. nightly as needed sleep Habits: The patient admits to heavy alcohol drinking and smoking 1/2 pack of cigarettes a day Family history: Unknown Review of Systems General: Reports: 10 or more systems reviewed and unremarkable except in HPI and below Medications/Allergies Home Medications Medication Instructions Recorded Confirmed Last Taken Type gabapentin 100 mg capsule 100 mg PO TID 04/22/23 04/22/23 Unknown History hydroxyzine pamoate 50 mg capsule 50 mg PO QID PRN Anxiety 04/22/23 04/22/23 Unknown History mirtazapine 15 mg tablet 15 mg PO BEDTIME 04/22/23 04/22/23 Unknown History naltrexone 50 mg tablet 50 mg PO DAILY 04/22/23 04/22/23 Unknown History ondansetron 4 mg disintegrating 4 mg PO Q6H PRN Nausea And Vomiting 04/22/23 04/22/23 Unknown History tablet pantoprazole 40 mg tablet,delayed 40 mg PO BID 04/22/23 04/22/23 Unknown History release vitamin with calcium 1 tab PO DAILY 04/22/23 04/22/23 Unknown History no.72-iron 27 mg-folic acid 1 mg tablet ( Vitamins Plus Low Iron) zolpidem 5 mg tablet 5 mg PO BEDTIME PRN Sleep 04/22/23 04/22/23 Unknown History Allergies Allergy/AdvReac Type Severity Reaction Status Date / Time amoxicillin Allergy ALGY-Rash Verified 04/22/23 14:11 Current Medications Generic Name Dose Route Start Last Admin Trade Name Freq PRN Reason Stop Dose Admin Lorazepam 2 mg 04/22/23 14:08 04/22/23 14:26 Lorazepam 2 Mg/Ml Inj 1 Ml IVP 2 mg PRN PRN Administration WITHDRAWAL Protocol PFSH Acute PFSH: Social History Smoking and tobacco status: current every day smoker Vitals/I&O/Wt Last Vital Signs Temp 98.5 F 04/22/23 14:10 Pulse 104 H 04/22/23 14:10 Resp 18 04/22/23 14:10 BP 146/107 04/22/23 14:10 Pulse Ox 94 04/22/23 14:10 O2 Del Method Room Air 04/22/23 14:10 Weight last 48 hrs Weight 165 lb Physical Exam Narrative: NIH score =1 secondary to dysarthria which is most likely related to alcohol abuse Blood pressure 146/107 heart rate 95 O2 saturations 95% on room air The patient is alert and oriented to person place and situation. Head atraumatic. Neck supple. Cranial nerves II through XII intact. Pupils equal round and reactive to light and accommodation. Extraocular movements intact. The patient did have horizontal nystagmus on lateral gaze bilaterally which extinguish with repeat testing of extraocular movements . Speech mildly dysarthric but understandable. Patient follows commands. There was no obvious facial weakness. Motor testing 5/5 bilaterally. Deep tendon reflexes grossly symmetrical at 1-2+. Plantar responses flexor bilaterally. There was no clonus. Sensory examination was intact to touch and gross modalities. There was no obvious ataxia involving his upper and lower extremities. Throat clear. Lungs clear. Heart regular rhythm and rate extremities were negative for clubbing cyanosis or edema bowel sounds positive abdomen soft and nontender Data 04/22/23 14:12 04/22/23 14:12 A&P Assessment and plan (1) Right sided numbness: Impression: 1. Alcohol intoxication 2. Right-sided numbness most likely related to #1, resolved Plan: 1. Thiamine 100 mg IV daily then transition to 100 mg p.o. daily thereafter to prevent Wernick's Korsakoff encephalopathy 2. Agree with current work-up and metabolic lab 3. Recommend checking magnesium level 4. Okay from neurological standpoint to use benzodiazepines such as Ativan or Valium if needed for delirium tremens or agitation 5. Recommend obtaining carotid duplex study and 2D echocardiogram to complete stroke work-up (2) Acute alcohol intoxication: (3) Alcohol use disorder: (4) Dysarthria: Consult Attestations Medical Necessity Statement: Patient evaluated by neurology for code stroke emergency department room 12 Coding Level of Care Code 19758 Diagnoses Right sided numbness R20.0 Acute alcohol intoxication F10.929 Alcohol use disorder F10.90 Dysarthria R47.1 Time Spent (min) 30
--- NOTE | 2023-04-22 15:32 | PC.NURSE ---
pt removing all monitoring equipment. states he doesn't need all of that. pt wanting to walk out. MD to room and pt asked to stay with us a while to get him to feeling better.
[2023-04-22] MEDS: folic acid 1 MG, multivitamin inj 10 ML, thiamine 100 MG in sodium chloride 0.9% 1,000 ML 252.8 MG IV (15:37)
--- NOTE | 2023-04-22 15:47 | PC.NURSE ---
pt still trying to walk out. has cigarette and strike plate attacher in hand. I told pt if he would go back to his room and get his banana bag that he would feel better and that I would also try to get him something to eat and drink. I told pt that he could not smoke in the hospital and that I would hold on to his strike plate attacher until he was ready to go. banana bag started and pt provided with some food and juice.
[2023-04-22 18:04] LABS: Glucose Point of Care 115 mg/dL (70-110)
== END 2023-04-22 18:52 | disposition home or self-care (01) ==
PROVIDERS: Emergency Provider Family Medicine; PCP Psychiatry & Neurology Psychiatry
DX: F10.929 Alcohol use, unspecified with intoxication, unspecified (principal); Y90.8 Blood alcohol level of 240 mg/100 ml or more; F17.210 Nicotine dependence, cigarettes, uncomplicated
CPT/HCPCS: 36416; 70450; 80053; 80307; 82962; 85025; 85610; 85730; 93005; 96361; 96372; 96374; 99285; J2060; J3411; J3490; J7030

== ENCOUNTER 2023-04-22 20:01 | Emergency (ER) | payer OTHER, MEDICAID, SELFPAY ==
[2023-04-22 20:03] VITALS: BP 133/93; PULSE 87; RESP 18; TEMP 36.8; O2SAT 93
--- NOTE | 2023-04-22 20:52 | W.ED.ALCOHOL ---
HPI - Alcohol General: Chief Complaint: Alcohol Stated Complaint: ETOH Time Seen by Provider: 04/22/23 20:16 History of Present Illness: 47 years old male with history of alcohol abuse presents emergency room requesting for detox patient was recently seen and evaluated in this ER few hours ago. Patient states that he went home and drank alcohol and now requesting for detox. Denies any head injury or fall since discharge. Has any chest pain, cough, vomiting or vomiting blood. Review of Systems General: Reports: 10 or more systems reviewed and unremarkable except in HPI and below PFSH ED PFSH: Social History Smoking and tobacco status: current every day smoker Physical Exam Const: GENERAL APPEARANCE: comfortable and odor of alcohol detected; not anxious and not combative HENMT: COMMON NORMALS: normocephalic, atraumatic, hearing grossly normal bilaterally, external ears normal, EAC's normal, TM's normal bilaterally, Normal external nose present, Normal nasal mucous membranes and turbinates present, moist oral mucous membranes, oropharynx normal, dentition normal and gingiva normal HEAD & SCALP: normocephalic and atraumatic NOSE: Normal external nose present and Normal nasal mucous membranes and turbinates present EXTERNAL EAR: Yes external ears normal EXTERNAL AUDITORY CANAL: EAC's normal TYMPANIC MEMBRANE: TM's normal bilaterally Neck/C-Spine: COMMON NORMALS: no JVD Chest: COMMONS NORMALS: normal inspection of the chest, normal palpation of entire chest wall, normal inspection of the breasts and normal palpation of the breasts Breast/axilla inspection: Yes normal inspection of the breasts BREAST/AXILLA PALPATION: Yes normal palpation of the breasts Resp: COMMON NORMALS: normal respiratory effort, No retractions, No use of accessory muscles, clear to auscultation bilaterally and percussion normal AUSCULTATION: clear to auscultation bilaterally PERCUSSION: percussion normal Cardio: COMMON NORMALS: no JVD, regular rate, regular rhythm, S1 normal heart sound present, S2 normal heart sound present, No gallops present (Cardio), No clicks present (Cardio), No murmurs present (Cardio), No rub (Cardio) and Peripheral pulses 2+ throughout RATE: regular rate RHYTHM: regular rhythm HEART SOUNDS: S1 normal heart sound present and S2 normal heart sound present PERIPHERAL PULSES: Peripheral pulses 2+ throughout Extremity: COMMON NORMALS: normal to inspection, full ROM, capillary refill normal, no joint enlargement, no clubbing, cyanosis or edema, no calf tenderness and no pedal edema Skin: COMMON NORMALS: no rashes or lesions noted, no wounds, turgor normal, no jaundice, no petechiae and no mottling GENERAL SKIN EXAM: no rashes or lesions noted and turgor normal Course Vital Signs: Vital signs: Vital Signs Temperature 98.2 F 04/22/23 21:18 Pulse Rate 87 04/22/23 21:18 Respiratory Rate 18 04/22/23 21:18 Blood Pressure 133/93 04/22/23 21:18 Pulse Oximetry 93 04/22/23 21:18 Oxygen Delivery Me thod Room Air 04/22/23 20:03 MDM - Alcohol Medical Decision Making Patient made comfortable in emergency room. I was able to review his recent ER records. Patient was awake alert and was able to ambulate back and forth to the bathroom. Patient was DISCHARGED. Patient be discharged home with family. Discharge Plan Discharge Patient Disposition: Home Clinical Impression: Acute alcohol intoxication Condition: Stable Prescriptions: No Action naltrexone 50 mg tablet 50 mg PO DAILY hydroxyzine pamoate 50 mg capsule 50 mg PO QID PRN (Reason: Anxiety) pantoprazole 40 mg tablet,delayed release (DR/EC) 40 mg PO BID zolpidem 5 mg tablet 5 mg PO BEDTIME PRN (Reason: Sleep) mirtazapine 15 mg tablet 15 mg PO BEDTIME gabapentin 100 mg capsule 100 mg PO TID ondansetron 4 mg tablet,disintegrating 4 mg PO Q6H PRN (Reason: Nausea And Vomiting) Vitamin Plus Low Iron 27 mg iron- 1 mg tablet 1 tab PO DAILY Discharge Orders: Discharge ED (Routine); Ordered 04/22/23 Ordered By: Robin Andrews Referrals: Mark Wong DO [Primary Care Provider] - Discharge Diet: Advance as tolerated Discharge Activity: Resume usual activity Patient Instructions: Opioid Safety, Pain Management Coding Level of Care Code ED Dry Wall Sprayer for Abisai Fermin
[2023-04-22 21:18] VITALS: BP 133/93; PULSE 87; RESP 18; TEMP 36.8; O2SAT 93
== END 2023-04-22 21:19 | disposition home or self-care (01) ==
PROVIDERS: Emergency Provider Family Medicine; PCP Psychiatry & Neurology Psychiatry
DX: F10.129 Alcohol abuse with intoxication, unspecified (principal); Y90.9 Presence of alcohol in blood, level not specified; F17.210 Nicotine dependence, cigarettes, uncomplicated
CPT/HCPCS: 99283

== ENCOUNTER 2023-04-22 21:24 | Emergency (ER) | payer OTHER, MEDICAID, SELFPAY ==
[2023-04-22 21:34] VITALS: BP 124/87; PULSE 96; RESP 18; TEMP 36.6; O2SAT 94; BMI 24.3
--- NOTE | 2023-04-22 22:55 | PC.NURSE ---
Spoke with pt extensively about plans after discharge. Pt holding cigarette and binding dyer in his hand requesting to leave. Reminded pt that he had just left ER AMA prior in the evening, then returning for a possible fall. Pt states that he has no one in [place], he is from [place] and got here by ambulance. Pt stated, Ill figure it out, Ill be ok . Pt stated in front of myself and security I don't want to kill myself, I don't want to hurt anyone . Pt called me back to his room from down the hallway I'll do what ever you want me to do, I'll stay if thats what you want . This nurse explained to pt that the Dr would likely discharge him again shortly due to not having a reason for admission. Security department aware of situation, and present in unit.
--- NOTE | 2023-04-22 23:44 | W.ED.GENADLT ---
HPI - General Adult General: Chief complaint: General Medical Stated complaint: Cant Walk\Fell Down Time Seen by Provider: 04/22/23 22:24 History of Present Illness: 39 years old male with history of alcohol abuse presents emergency room with complaints of seeking help for his alcohol abuse. Patient was discharged by me on ago for similar complaint. Patient is requesting Ativan for alcohol withdrawal even though still drinking. He denies any recent head injury or fall. No neck pain, no headache no blurry vision change in vision. Associated symptoms: Deny nausea or vomiting Review of Systems General: Reports: 10 or more systems reviewed and unremarkable except in HPI and below GI: Denies: abdominal pain, nausea, vomiting, hematemesis, coffee ground emesis, dysphagia, heartburn, early satiety, diarrhea, constipation, bloating, GI cramping, belching or excessive flatus PFSH ED PFSH: Social History Smoking and tobacco status: current every day smoker Physical Exam Const: COMMON NORMALS: no acute distress, average body habitus, patient oriented x3, no limitations, healthy appearing, alert and well nourished GENERAL APPEARANCE: odor of alcohol detected HENMT: COMMON NORMALS: normocephalic, atraumatic, hearing grossly normal bilaterally, external ears normal, EAC's normal, TM's normal bilaterally, Normal external nose present, Normal nasal mucous membranes and turbinates present, moist oral mucous membranes, oropharynx normal, dentition normal and gingiva normal HEAD & SCALP: normocephalic and atraumatic NOSE: Normal external nose present and Normal nasal mucous membranes and turbinates present EXTERNAL EAR: Yes external ears normal EXTERNAL AUDITORY CANAL: EAC's normal TYMPANIC MEMBRANE: TM's normal bilaterally Neck/C-Spine: COMMON NORMALS: no JVD Chest: COMMONS NORMALS: normal inspection of the chest, normal palpation of entire chest wall, normal inspection of the breasts and normal palpation of the breasts Breast/axilla inspection: Yes normal inspection of the breasts BREAST/AXILLA PALPATION: Yes normal palpation of the breasts Cardio: COMMON NORMALS: no JVD, regular rate, regular rhythm, S1 normal heart sound present, S2 normal heart sound present, No gallops present (Cardio), No clicks present (Cardio), No murmurs present (Cardio), No rub (Cardio) and Peripheral pulses 2+ throughout RATE: regular rate RHYTHM: regular rhythm HEART SOUNDS: S1 normal heart sound present and S2 normal heart sound present PERIPHERAL PULSES: Peripheral pulses 2+ throughout Neuro: COMMON NORMALS: patient oriented x3 SENSORIUM/ORIENTATION: Yes alert Psych: COMMON NORMALS: mental status grossly normal, Normal thought process present, cooperative, normal affect, speech normal, activity/motor behavior normal, denies hallucinations, denies homicidal ideation and denies suicidal ideation SPEECH: Yes normal speech THOUGHT PROCESS: Normal thought process present Course Vital Signs: Vital signs: Vital Signs Temperature 97.8 F 04/22/23 21:34 Pulse Rate 96 04/22/23 21:34 Respiratory Rate 18 04/22/23 21:34 Blood Pressure 124/87 04/22/23 21:34 Pulse Oximetry 94 04/22/23 21:34 Oxygen Delivery Me thod Room Air 04/22/23 21:34 MDM - General Adult Medical Decision Making Patient was monitored over 2 hours. Remained stable within acute distress. Patient is awake and alert x3. Patient like to be discharged home. Differential Diagnosis Alcohol intoxication, drug abuse, electrolyte abnormalities, Discharge Plan Discharge Patient Disposition: Home Clinical Impression: Alcohol use disorder, Acute alcohol intoxication Condition: Stable Prescriptions: No Action naltrexone 50 mg tablet 50 mg PO DAILY hydroxyzine pamoate 50 mg capsule 50 mg PO QID PRN (Reason: Anxiety) pantoprazole 40 mg tablet,delayed release (DR/EC) 40 mg PO BID zolpidem 5 mg tablet 5 mg PO BEDTIME PRN (Reason: Sleep) mirtazapine 15 mg tablet 15 mg PO BEDTIME gabapentin 100 mg capsule 100 mg PO TID ondansetron 4 mg tablet,disintegrating 4 mg PO Q6H PRN (Reason: Nausea And Vomiting) Vitamin Plus Low Iron 27 mg iron- 1 mg tablet 1 tab PO DAILY Discharge Orders: Discharge ED (Routine); Ordered 04/22/23 Ordered By: Robin Andrews Discharge Diet: Advance as tolerated Discharge Activity: Resume usual activity Patient Instructions: Opioid Safety, Pain Management Coding Level of Care Code ED Cylinder Tester for Abisai Fermin
--- NOTE | 2023-04-23 01:49 | PC.NURSE ---
Pt up out of room requesting to leave again. Pt walking around department despite being told not to several times earlier. Pt states that he is feeling better and wants to leave. Pt signed discharge paperwork and departed out of WR outside on foot. Pt does not appear intoxicated at this time and is able to walk without difficulty and talk without slurring.
[2023-04-23 01:50] VITALS: BP 124/87; PULSE 96; RESP 18; TEMP 36.6; O2SAT 94
== END 2023-04-23 01:51 | disposition home or self-care (01) ==
PROVIDERS: Emergency Provider Family Medicine
DX: F10.129 Alcohol abuse with intoxication, unspecified (principal)
CPT/HCPCS: 99281

== ENCOUNTER 2023-04-25 14:57 | Emergency (ER) | payer OTHER, MEDICAID, SELFPAY ==
[2023-04-25 14:59] VITALS: BP 131/82; PULSE 103; RESP 18; O2SAT 93
--- NOTE | 2023-04-25 15:07 | ED_ITS ---
HPI - Alcohol General: Chief Complaint: Alcohol Stated Complaint: etoh Time Seen by Provider: 04/25/23 14:59 History of Present Illness: Presents to the ER today for alcohol abuse. Patient states he wants help he wants us to detox him for 2 or 3 days so he can eat boiler cleaner and then go to [facility] for rehab. Patient says he normally drinks about a gallon of vodka a day and today's he that he is only about a half a pint. She has been drinking this much for many years. Review of Systems General: Reports: 10 or more systems reviewed and unremarkable except in HPI and below PFSH ED PFSH: Social History Smoking and tobacco status: current every day smoker Physical Exam Const: COMMON NORMALS: no acute distress, average body habitus, patient oriented x3, no limitations, healthy appearing, alert and well nourished HENMT: COMMON NORMALS: normocephalic, atraumatic, hearing grossly normal bilaterally, external ears normal, Normal external nose present and moist oral mucous membranes HEAD & SCALP: normocephalic and atraumatic NOSE: Normal external nose present EXTERNAL EAR: Yes external ears normal Neck/C-Spine: COMMON NORMALS: full ROM, no lymphadenopathy, supple, no meningeal signs, no JVD and Thyroid normal THYROID: Thyroid normal Chest: COMMONS NORMALS: normal inspection of the chest and normal palpation of entire chest wall Resp: COMMON NORMALS: normal respiratory effort, No retractions, No use of accessory muscles and clear to auscultation bilaterally AUSCULTATION: clear to auscultation bilaterally Cardio: COMMON NORMALS: no JVD, regular rate, regular rhythm, S1 normal heart sound present, S2 normal heart sound present, No gallops present (Cardio), No clicks present (Cardio), No murmurs present (Cardio) and No rub (Cardio) RATE: regular rate RHYTHM: regular rhythm HEART SOUNDS: S1 normal heart sound present and S2 normal heart sound present GI: COMMON NORMALS: Normal to inspection, nondistended, normoactive bowel sounds present Neuro: COMMON NORMALS: patient oriented x3 SENSORIUM/ORIENTATION: Yes alert MENINGEAL SIGNS: Yes no meningeal signs Course Vital Signs: Vital signs: Vital Signs Pulse Rate 103 H 04/25/23 14:59 Respiratory Rate 18 04/25/23 14:59 Blood Pressure 131/82 04/25/23 14:59 Pulse Oximetry 93 04/25/23 14:59 Oxygen Delivery Me thod Room Air 04/25/23 14:59 MDM - Alcohol Medical Decision Making Labs was performed which included an alcohol 359 approximately and urine which showed benzos and marijuana. Patient was given 1 L normal saline during which she went to sleep. Anticipate patient sobering up and discharging her from the ER. Differential Diagnosis Likely alcohol intoxication; Unlikely alcohol withdrawal delirium, hypomagnesemia, alcohol ketoacidosis, alcohol withdrawal syndrome or alcohol withdrawal seizure Medical Records I reviewed the patient's medical records. Lab Data I reviewed the patient's lab results. 04/25/23 15:19 04/25/23 15:19 Laboratory Results WBC 5.6 10^3/uL (4.0-10.0) 04/25/23 15:19 RBC 4.36 10^6/uL (4.1-5.3) 04/25/23 15:19 Hgb 13.3 g/dL (11.7-16.6) 04/25/23 15:19 Hct 40.2 % (42.0-52.0) L 04/25/23 15:19 MCV 92.2 fl (80-94) 04/25/23 15:19 MCH 30.5 pg (28.0-34.0) 04/25/23 15:19 MCHC 33.1 g/dL (30.0-36.0) 04/25/23 15:19 RDW 14.7 % (12.1-15.1) 04/25/23 15:19 Plt Count 302 10^3/cmm (130-400) 04/25/23 15:19 MPV 9.3 fL (7.4-10.4) 04/25/23 15:19 Neut % (Auto) 69.6 % 04/25/23 15:19 Lymph % (Auto) 20.1 % 04/25/23 15:19 [place] % (Auto) 6.8 % 04/25/23 15:19 Eos % (Auto) 2.2 % 04/25/23 15:19 Baso % (Auto) 1.1 % 04/25/23 15:19 Neut # (Auto) 3.87 10^3/uL (1.8-7.7) 04/25/23 15:19 Lymph # (Auto) 1.1 10^3/uL (0.8-4.8) 04/25/23 15:19 Pine # (Auto) 0.4 10^3/uL (0.2-0.9) 04/25/23 15:19 Eos # (Auto) 0.1 10^3/uL (0.0-0.8) 04/25/23 15:19 Baso # (Auto) 0.1 10^3/uL (0.0-0.1) 04/25/23 15:19 Nucleated RBC % (auto) 0 % 04/25/23 15:19 Nucleated RBCs # 0.0 /100WBC 04/25/23 15:19 Sodium 142 mmol/L (136-145) 04/25/23 15:19 Potassium 3.8 mmol/L (3.5-5.1) 04/25/23 15:19 Chloride 104 mmol/L (98-107) 04/25/23 15:19 Carbon Dioxide 24 mmol/L (22-29) 04/25/23 15:19 Anion Gap 17.8 (5-19) 04/25/23 15:19 BUN 9 mg/dL (6-20) 04/25/23 15:19 Creatinine 0.6 mg/dL (0.7-1.2) L 04/25/23 15:19 GFR Calculation 143.8 mL/min (90-130) H 04/25/23 15:19 Glucose 100 mg/dL (65-115) 04/25/23 15:19 Calculated Osmolality 293 mOsm/kg (285-295) 04/25/23 15:19 Calcium 9.1 mg/dL (8.5-10.5) 04/25/23 15:19 Total Bilirubin 0.2 mg/dL (0.15-1.2) 04/25/23 15:19 AST 31 U/L (0-40) 04/25/23 15:19 ALT 17 U/L (0-41) 04/25/23 15:19 Alkaline Phosphatase 88 U/L (40-130) 04/25/23 15:19 Total Protein 7.4 g/dL (6.6-8.7) 04/25/23 15:19 Albumin 4.4 g/dL (3.5-5.2) 04/25/23 15:19 Globulin 3.0 g/dL (1.3-4.6) 04/25/23 15:19 Urine Color Yellow (Yellow) 04/25/23 15:19 Urine Appearance Clear (CLEAR) 04/25/23 15:19 Urine pH 5 (5-7) 04/25/23 15:19 Ur Specific [place] 1.010 (1.005-1.030) 04/25/23 15:19 Urine Protein Neg (Negative) 04/25/23 15:19 Urine Glucose (UA) Norm (Normal) 04/25/23 15:19 Urine Ketones Negative (Negative) 04/25/23 15:19 Urine Blood Neg (Negative) 04/25/23 15:19 Urine Nitrate Negative (Negative) 04/25/23 15:19 Urine Bilirubin Neg (Negative) 04/25/23 15:19 Urine Urobilinogen Norm mg/dL (Negative) 04/25/23 15:19 Ur Leukocyte Esterase Negative (Negative) 04/25/23 15:19 Salicylates < 0.3 mg/dL (3-10) L 04/25/23 15:19 Urine Opiates Screen Negative ng/mL (Negative) 04/25/23 15:19 Acetaminophen < 5.0 ug/mL (10-30) L 04/25/23 15:19 Ur Barbiturates Screen Negative ng/mL (Negative) 04/25/23 15:19 Ur Phencyclidine Scrn Negative ng/mL (Negative) 04/25/23 15:19 Ur Amphetamines Screen Negative ng/mL (Negative) 04/25/23 15:19 U Benzodiazepines Scrn Positive ng/mL (Negative) H 04/25/23 15:19 Urine Cocaine Screen Negative ng/mL (Negative) 04/25/23 15:19 U Marijuana (THC) Screen Positive ng/mL (Negative) H 04/25/23 15:19 Ethyl Alcohol 359 mg/dL (0-10) H* 04/25/23 15:19 Discharge Plan Discharge Patient Disposition: Home Clinical Impression: Alcoholic intoxication Qualifiers: Complication of substance-induced condition: uncomplicated Qualified Code(s): F10.920 - Alcohol use, unspecified with intoxication, uncomplicated Condition: Stable Prescriptions: No Action naltrexone 50 mg tablet 50 mg PO DAILY hydroxyzine pamoate 50 mg capsule 50 mg PO QID PRN (Reason: Anxiety) pantoprazole 40 mg tablet,delayed release (DR/EC) 40 mg PO BID zolpidem 5 mg tablet 5 mg PO BEDTIME PRN (Reason: Sleep) mirtazapine 15 mg tablet 15 mg PO BEDTIME gabapentin 100 mg capsule 100 mg PO TID ondansetron 4 mg tablet,disintegrating 4 mg PO Q6H PRN (Reason: Nausea And Vomiting) Vitamin Plus Low Iron 27 mg iron- 1 mg tablet 1 tab PO DAILY Discharge Orders: Discharge ED (Routine); Ordered 04/25/23 Ordered By: Augie Londono Referrals: Mark Wong DO [Primary Care Provider] - 1 week Patient Instructions: Alcohol Intoxication (ED) Activity Restrictions/Additional Instructions: Please follow-up with your family practice doctor within 7 days or as needed. Coding Level of Care Code ED Historic Sites Registrar for Abisai Fermin
[2023-04-25 15:33] LABS: Add Urine Microscopic? NO; Charge for UA Resulting for Rev
[2023-04-25 15:34] LABS: Basophils # 0.1 10^3/uL (0.0-0.1); Basophils % 1.1 %; Eosinophils # 0.1 10^3/uL (0.0-0.8); Eosinophils % 2.2 %; Hematocrit 40.2 % (42.0-52.0); Hemoglobin 13.3 g/dL (11.7-16.6); Lymphocytes # 1.1 10^3/uL (0.8-4.8); Lymphocytes % 20.1 %; Mean Corpuscular HGB Conc 33.1 g/dL (30.0-36.0); Mean Corpuscular Hemoglobin 30.5 pg (28.0-34.0); Mean Corpuscular Volume 92.2 fl (80-94); Mean Platelet Volume 9.3 fL (7.4-10.4); Monocytes # 0.4 10^3/uL (0.2-0.9); Monocytes % 6.8 %; Neutrophils # 3.87 10^3/uL (1.8-7.7); Neutrophils % 69.6 %; Nucleated Red Blood Cells % 0 %; Platelet Count 302 10^3/cmm (130-400); Red Blood Count 4.36 10^6/uL (4.1-5.3); Red Cell Distribution Width 14.7 % (12.1-15.1); White Blood Count 5.6 10^3/uL (4.0-10.0)
[2023-04-25 15:43] LABS: Bilirubin Urine Neg (Negative); Blood Urine Neg (Negative); Glucose Urine UA Norm (Normal); Ketones Urine Negative (Negative); Leukocyte Esterase Urine Negative (Negative); Nitrate Urine Negative (Negative); Protein Urine Neg (Negative); Urine Appearance Clear (CLEAR); Urine Color Yellow (Yellow); Urobilinogen Urine Norm (Negative); pH Urine 5 (5-7)
[2023-04-25 15:51] LABS: Amphetamines Screen Urine Negative (Negative); Barbiturates Screen Urine Negative (Negative); Benzodiazepines Screen Urine Positive (Negative); Cocaine Screen Urine Negative (Negative); Opiate Screen Urine Negative (Negative); PCP Screen Urine Negative (Negative); THC Screen Urine Positive (Negative)
[2023-04-25 15:53] LABS: Acetaminophen < 5.0 ug/mL (10-30); Alanine Aminotransferase 17 U/L (0-41); Albumin Level 4.4 g/dL (3.5-5.2); Alkaline Phosphatase 88 U/L (40-130); Anion Gap 17.8 (5-19); Aspartate Amino Transferase 31 U/L (0-40); Blood Urea Nitrogen 9 mg/dL (6-20); Calcium 9.1 mg/dL (8.5-10.5); Carbon Dioxide 24 mmol/L (22-29); Chloride 104 mmol/L (98-107); Glomerular Filtration Rate 143.8 mL/min (90-130); Glucose 100 mg/dL (65-115); Osmolality Calculated 293 mOsm/kg (285-295); Potassium 3.8 mmol/L (3.5-5.1); Salicylate < 0.3 mg/dL (3-10); Sodium 142 mmol/L (136-145); Total Bilirubin 0.2 mg/dL (0.15-1.2); Total Protein 7.4 g/dL (6.6-8.7)
[2023-04-25 15:54] LABS: Alcohol Level 359 mg/dL (0-10)
--- NOTE | 2023-04-25 16:04 | PC.PHAR ---
pt unable to verify medications pt states he hasnt been taking his meds-medications entered are what ext shows has been filled recently
[2023-04-25] MEDS: sodium chloride 0.9% 1,000 ML 999 ML IV (16:20)
== END 2023-04-25 21:18 | disposition home or self-care (01) ==
PROVIDERS: Emergency Provider Emergency Medicine; PCP Psychiatry & Neurology Psychiatry
DX: F10.129 Alcohol abuse with intoxication, unspecified (principal); Y90.8 Blood alcohol level of 240 mg/100 ml or more
CPT/HCPCS: 36415; 80053; 80306; 80307; 81003; 85025; 96361; 96374; 99284; J3411; J7030

== ENCOUNTER 2023-04-26 00:51 | Emergency (ER) | payer MEDICAID, SELFPAY ==
[2023-04-26 00:53] VITALS: BP 156/92; PULSE 72; RESP 16; TEMP 36.8; O2SAT 98; BMI 22.2
[2023-04-26 02:49] VITALS: PULSE 75; RESP 16; O2SAT 95
--- NOTE | 2023-04-26 16:58 | W.ED.ALCOHOL ---
HPI - Alcohol General: Chief Complaint: Alcohol Stated Complaint: ETOH Time Seen by Provider: 04/26/23 01:10 Source: patient, EMS and police History of Present Illness: 47 year old gentleman who was seen in the last 12 hours and discharged. He was intoxicated with alcohol at that time, allowed to sober up, and discharge. He is brought in by a food trades assistants's deputy found in the [employer] parking lot next to ?a pile of vomit?. The patient told the deputy that he may need to go back to the emergency department. He denies suicidality. He told the nursing staff that he may need to go to rehab. He has no other symptoms. MD complaint: alcohol intoxication Last drink: Just [employer] Chronic alcohol use: Yes Previous visits for alcohol intoxication: Yes Recent trauma: No Associated symptoms: Reports vomiting Review of Systems GI: Reports: vomiting [facility] ED PFSH: Social History Smoking and tobacco status: current every day smoker Physical Exam Const: COMMON NORMALS: no acute distress GENERAL APPEARANCE: cooperative, disheveled, lethargic and odor of alcohol detected; not ill appearing ORIENTATION/CONSCIOUSNESS: Yes lethargic HENMT: COMMON NORMALS: normocephalic, atraumatic and Normal external nose present HEAD & SCALP: normocephalic and atraumatic FACE & SINUS: normal facial exam and face symmetric NOSE: Normal external nose present Eye: COMMON NORMALS: Equal, round and reactive pupils present and EOMs intact bilaterally PUPIL: Yes Equal, round and reactive pupils present Neck/C-Spine: GENERAL: Yes trachea midline Chest: CHEST: Yes Symmetrical chest wall rise Resp: COMMON NORMALS: normal respiratory effort, No retractions, No use of accessory muscles and clear to auscultation bilaterally AUSCULTATION: clear to auscultation bilaterally Cardio: COMMON NORMALS: regular rate and regular rhythm RATE: regular rate RHYTHM: regular rhythm GI: COMMON NORMALS: Normal to inspection, nondistended, normoactive bowel sounds present Extremity: COMMON NORMALS: no pedal edema Neuro: IRENE COMA SCALE: document GCS findings Irene coma scale eye opening: Spontaneous [place] coma scale verbal response: Orientated [place] coma scale motor response: Obey commands [place] coma scale total score: 15 SENSORIUM/ORIENTATION: Yes lethargic SENSORY EXAM: Yes extremities (intact) Psych: COMMON NORMALS: speech normal SPEECH: Yes normal speech Skin: COMMON NORMALS: no rashes or lesions noted GENERAL SKIN EXAM: no rashes or lesions noted Course Vital Signs: Vital signs: Vital Signs Temperature 98.3 F 04/26/23 00:53 Pulse Rate 75 04/26/23 02:49 Respiratory Rate 16 04/26/23 02:49 Blood Pressure 156/92 04/26/23 00:53 Pulse Oximetry 95 04/26/23 02:49 Oxygen Delivery Me thod Room Air 04/26/23 00:53 MDM - Alcohol Medical Decision Making This patient was brought in by a food trades assistants's deputy with good intentions. The patient is not suicidal, his vitals are stable, he exhibits no sign of a medical problem. he is simply intoxicated with alcohol. He has walked in the ER several times, getting up to urinate and coming back on his own. He remains functional. He has not vomited since he has been here. We do not provide rehab services at this facility. He will be discharged. Medically, he is stable. Discharge Plan Discharge Patient Disposition: Home Clinical Impression: Alcoholic intoxication Condition: Stable Prescriptions: No Action naltrexone 50 mg tablet 50 mg PO DAILY hydroxyzine pamoate 50 mg capsule 50 mg PO QID PRN (Reason: Anxiety) pantoprazole 40 mg tablet,delayed release (DR/EC) 40 mg PO BID zolpidem 5 mg tablet 5 mg PO BEDTIME PRN (Reason: Sleep) mirtazapine 15 mg tablet 15 mg PO BEDTIME gabapentin 100 mg capsule 100 mg PO TID ondansetron 4 mg tablet,disintegrating 4 mg PO Q6H PRN (Reason: Nausea And Vomiting) Vitamin Plus Low Iron 27 mg iron- 1 mg tablet 1 tab PO DAILY Discharge Orders: Discharge ED (Routine); Ordered 04/26/23 Ordered By: Torey Kumar Referrals: Mark Wong DO [Primary Care Provider] - Patient Instructions: Alcohol Intoxication (DC) Coding Level of Care Code ED Tester [employer] for Abisai Fermin
== END 2023-04-26 02:50 | disposition home or self-care (01) ==
PROVIDERS: Emergency Provider Emergency Medicine; PCP Psychiatry & Neurology Psychiatry
DX: F10.129 Alcohol abuse with intoxication, unspecified (principal); F17.210 Nicotine dependence, cigarettes, uncomplicated
CPT/HCPCS: 99281

== ENCOUNTER 2023-04-26 07:55 | Emergency (ER) | payer OTHER, MEDICAID, SELFPAY ==
[2023-04-26 08:02] VITALS: BP 139/89; PULSE 89; RESP 14; O2SAT 94
--- NOTE | 2023-04-26 08:15 | PC.PHAR ---
pt unable to verify medications-medications entered are from what shows has been filled recently on ext med history-pt was here on 04/25/23 pt stated then that he wasnt taking any of his medications
--- NOTE | 2023-04-26 08:17 | CTR_ITS ---
PROCEDURE INFORMATION: Exam: CT Head Without Contrast Exam date and time: 04/26/2023 8:42 AM Age: 47 years old Clinical indication: Other: ETOH; Additional info: Altered mental status TECHNIQUE: Imaging protocol: Computed tomography of the head without contrast. Radiation optimization: All CT scans at this facility use at least one of these dose optimization techniques: automated exposure control; mA and/or kV adjustment per patient size (includes targeted exams where dose is matched to clinical indication); or iterative reconstruction. REPORTING DATA: Count of CT and Cardiac NM exams in prior 12 months: This patient has received [address] and 0 known cardiac nuclear medicine studies in the 12 months prior to the current study. COMPARISON: CT head thrombolytic [id number] 04/22/2023 2:00 PM RADIATION DOSE METRICS: Total DLP (mGy-cm): 1063.04 FINDINGS: Brain: Mild cerebral atrophy. No hemorrhage. Preserved dominguez-white matter differentiation. Mild scattered bilateral cerebral white matter hypodensities, stable. No mass effect. Cerebral ventricles: Ventricles are in proportion to the degree of atrophy. Paranasal sinuses: Visualized sinuses are unremarkable. No fluid levels. Mastoid air cells: Visualized mastoid air cells are well aerated. Bones/joints: Unremarkable. No acute fracture. Soft tissues: Unremarkable. CT/CT head wo con* [id number] IMPRESSION: 1. No acute intracranial abnormality. 2. Stable mild scattered nonspecific cerebral white matter hypodensities.
--- NOTE | 2023-04-26 08:17 | XRR_ITS ---
PROCEDURE INFORMATION: Exam: XR Chest Exam date and time: 04/26/2023 8:36 AM Age: 47 years old Clinical indication: Other: ETOH; Additional info: Altered mental status TECHNIQUE: Imaging protocol: Radiologic exam of the chest. Views: 1 view. COMPARISON: CR XR chest 1V portable [id number] 10/06/2019 2:20 PM FINDINGS: Lungs: Unremarkable. No consolidation. Pleural spaces: Unremarkable. No pleural effusion. No pneumothorax. Heart/Mediastinum: No cardiomegaly. Accentuation of the ascending aorta silhouette. Bones/joints: No acute fracture. Stable sequela of right AC joint injury and mild bilateral acromioclavicular joint arthropathy. XR/XR chest 1V portable [id number] IMPRESSION: 1. No acute findings. 2. Accentuation of the ascending thoracic aorta silhouette may be on the basis of tortuosity versus dilatation.
--- NOTE | 2023-04-26 08:20 | W.ED.ALCOHOL ---
HPI - Alcohol General: Chief Complaint: Alcohol Stated Complaint: phys eval Time Seen by Provider: 04/26/23 07:58 History of Present Illness: 47-year-old male presents emergency department chief complaint of acute alcohol intoxication allegedly patient been our facility several times last week he has a known history of significant alcohol use patient is barely able to speak at this time due to being altered patient does not report any recent falls or injuries he presents to the ER for further assessment and management upon direct questioning patient reports no homicidal suicidal thoughts or ideations or any other concerns. Associated symptoms: Deny abdominal pain, depression, nausea or vomiting Review of Systems General: Reports: 10 or more systems reviewed and unremarkable except in HPI and below Const: Denies: fever(s), chills, fatigue or malaise Eyes: Denies: change in vision or blurry vision Card: Denies: chest pain or palpitations Resp: Denies: dyspnea or productive cough GI: Denies: abdominal pain, nausea or vomiting : Denies: flank pain Musc: Denies: extremity pain or extremity swelling Skin/Breast: Denies: rash or pruritus Neuro: Denies: headache(s) Psych: Denies: anxiety or depression Betito/Lymph: Denies: easy bleeding All/Imm: Denies: urticaria, throat swelling or facial swelling PFSH ED PFSH: Social History Smoking and tobacco status: current every day smoker Physical Exam Narrative: EXAM NARRATIVE: Significant smell of alcohol on breath patient has significant cortical slowing mental slowing with slurred speech no obvious focal neurodeficits appreciated Const: COMMON NORMALS: no acute distress, patient oriented x3, healthy appearing and alert (Patient appears to be under the influence of drugs or alcohol patient is ve) HENMT: COMMON NORMALS: normocephalic and atraumatic HEAD & SCALP: normocephalic and atraumatic Eye: COMMON NORMALS: Equal, round and reactive pupils present and EOMs intact bilaterally PUPIL: Yes Equal, round and reactive pupils present Neck/C-Spine: COMMON NORMALS: full ROM, supple and no JVD Lymph: LYMPHATIC: no lymphadenopathy noted Chest: COMMONS NORMALS: normal inspection of the chest and normal palpation of entire chest wall Resp: COMMON NORMALS: normal respiratory effort, No retractions and clear to auscultation bilaterally EFFORT & INSPECTION: Yes able to speak in complete sentences and Yes symmetric chest movement AUSCULTATION: clear to auscultation bilaterally Cardio: COMMON NORMALS: no JVD, regular rate and regular rhythm RATE: regular rate RHYTHM: regular rhythm GI: COMMON NORMALS: Normal to inspection, nondistended, normoactive bowel sounds present, Soft to palpation and non-tender INSPECTION: Yes normal to inspection PALPATION: Yes Soft to palpation : COMMON NORMALS: Yes no CVA tenderness BLADDER/KIDNEY EXAM: Yes no CVA tenderness Back/Pelvis: COMMON NORMALS: no CVA tenderness Extremity: COMMON NORMALS: normal to inspection and full ROM Neuro: COMMON NORMALS: patient oriented x3, CN's II-XII intact bilaterally, moves all extremities and no focal motor deficits SENSORIUM/ORIENTATION: Yes alert (Patient appears to be under the influence of drugs or alcohol patient is ve) Psych: COMMON NORMALS: mental status grossly normal, Normal thought process present, cooperative and normal affect THOUGHT PROCESS: Normal thought process present Skin: COMMON NORMALS: no rashes or lesions noted GENERAL SKIN EXAM: no rashes or lesions noted Course Vital Signs: Vital signs: Vital Signs Pulse Rate 76 04/26/23 12:37 Respiratory Rate 16 04/26/23 12:37 Blood Pressure 106/69 04/26/23 12:37 Pulse Oximetry 100 04/26/23 12:37 Oxygen Delivery Me thod Room Air 04/26/23 12:37 MDM - Alcohol Medical Decision Making Due to the patient's symptoms condition IV established basic lab work imaging and IV fluids provided we will continue to follow patient's initial blood alcohol level was found to be at 444 patient also was positive for cannabis as well as benzodiazepines. Anticipate discharge home once the patient has improvement of his sensorium is noted by nursing staff around 11:00 patient able to ambulate to the bathroom with no difficulty. We will continue to follow anticipate discharge around 1230 if patient is able to contact a ride to pick him up the patient remained in stable condition at this time. Patient was able to demonstrate clinical sobriety with clear speech and steady gait at 1400 in which he is requesting to be discharged home I see no need to keep him here against as well he is not homicidal or suicidal and has no additional complaints. Patient be discharged home per his request. I did advise further follow-up with primary care in 2 to 3 days in which he was advised to return the interim if any of his symptoms persist or worse. Lab Data 04/26/23 09:01 04/26/23 09:01 Radiology Impressions Chest X-Ray 04/26/23 08:17 IMPRESSION: 1. No acute findings. 2. Accentuation of the ascending thoracic aorta silhouette may be on the basis of tortuosity versus dilatation. Head CT 04/26/23 08:17 IMPRESSION: 1. No acute intracranial abnormality. 2. Stable mild scattered nonspecific cerebral white matter hypodensities. Laboratory Results WBC 5.2 10^3/uL (4.0-10.0) 04/26/23 09:01 RBC 4.72 10^6/uL (4.1-5.3) 04/26/23 09:01 Hgb 14.1 g/dL (11.7-16.6) 04/26/23 09:01 Hct 42.6 % (42.0-52.0) 04/26/23 09:01 MCV 90.3 fl (80-94) 04/26/23 09:01 MCH 29.9 pg (28.0-34.0) 04/26/23 09:01 MCHC 33.1 g/dL (30.0-36.0) 04/26/23 09:01 RDW 14.8 % (12.1-15.1) 04/26/23 09:01 Plt Count 393 10^3/cmm (130-400) D 04/26/23 09:01 MPV 9.2 fL (7.4-10.4) 04/26/23 09:01 Neut % (Auto) 61.8 % 04/26/23 09:01 Lymph % (Auto) 25.0 % 04/26/23 09:01 [place] % (Auto) 8.5 % 04/26/23 09:01 Eos % (Auto) 3.7 % 04/26/23 09:01 Baso % (Auto) 0.8 % 04/26/23 09:01 Neut # (Auto) 3.19 10^3/uL (1.8-7.7) 04/26/23 09:01 Lymph # (Auto) 1.3 10^3/uL (0.8-4.8) 04/26/23 09:01 [place] # (Auto) 0.4 10^3/uL (0.2-0.9) 04/26/23 09:01 Eos # (Auto) 0.2 10^3/uL (0.0-0.8) 04/26/23 09:01 Baso # (Auto) 0.0 10^3/uL (0.0-0.1) 04/26/23 09:01 Nucleated RBC % (auto) 0 % 04/26/23 09:01 Nucleated RBCs # 0.0 /100WBC 04/26/23 09:01 Sodium 147 mmol/L (136-145) H 04/26/23 09:01 Potassium 3.9 mmol/L (3.5-5.1) 04/26/23 09:01 Chloride 107 mmol/L (98-107) 04/26/23 09:01 Carbon Dioxide 29 mmol/L (22-29) 04/26/23 09:01 Anion Gap 14.9 (5-19) 04/26/23 09:01 BUN 9 mg/dL (6-20) 04/26/23 09:01 Creatinine 0.7 mg/dL (0.7-1.2) 04/26/23 09:01 GFR Calculation 120.4 mL/min (90-130) 04/26/23 09:01 Glucose 118 mg/dL (65-115) H 04/26/23 09:01 Calculated Osmolality 304 mOsm/kg (285-295) H 04/26/23 09:01 Calcium 8.8 mg/dL (8.5-10.5) 04/26/23 09:01 Total Bilirubin 0.2 mg/dL (0.15-1.2) 04/26/23 09:01 AST 34 U/L (0-40) 04/26/23 09:01 ALT 19 U/L (0-41) 04/26/23 09:01 Alkaline Phosphatase 88 U/L (40-130) 04/26/23 09:01 Total Protein 7.6 g/dL (6.6-8.7) 04/26/23 09:01 Albumin 4.6 g/dL (3.5-5.2) 04/26/23 09:01 Globulin 3.0 g/dL (1.3-4.6) 04/26/23 09:01 Urine Color Straw (Yellow) 04/26/23 09:05 Urine Appearance Clear (CLEAR) 04/26/23 09:05 Urine pH 7 (5-7) 04/26/23 09:05 Ur Specific Sabin 1.005 (1.005-1.030) 04/26/23 09:05 Urine Protein Neg (Negative) 04/26/23 09:05 Urine Glucose (UA) Norm (Normal) 04/26/23 09:05 Urine Ketones Negative (Negative) 04/26/23 09:05 Urine Blood Neg (Negative) 04/26/23 09:05 Urine Nitrate Negative (Negative) 04/26/23 09:05 Urine Bilirubin Neg (Negative) 04/26/23 09:05 Urine Urobilinogen Norm mg/dL (Negative) 04/26/23 09:05 Ur Leukocyte Esterase Negative (Negative) 04/26/23 09:05 Urine Opiates Screen Negative ng/mL (Negative) 04/26/23 09:05 Ur Barbiturates Screen Negative ng/mL (Negative) 04/26/23 09:05 Ur Phencyclidine Scrn Negative ng/mL (Negative) 04/26/23 09:05 Ur Amphetamines Screen Negative ng/mL (Negative) 04/26/23 09:05 U Benzodiazepines Scrn Positive ng/mL (Negative) H 04/26/23 09:05 Urine Cocaine Screen Negative ng/mL (Negative) 04/26/23 09:05 U Marijuana (THC) Screen Positive ng/mL (Negative) H 04/26/23 09:05 Ethyl Alcohol 484 mg/dL (0-10) H* 04/26/23 09:01 Discharge Plan Discharge Patient Disposition: Home Clinical Impression: Polysubstance abuse Condition: Stable Prescriptions: No Action naltrexone 50 mg tablet 50 mg PO DAILY hydroxyzine pamoate 50 mg capsule 50 mg PO QID PRN (Reason: Anxiety) pantoprazole 40 mg tablet,delayed release (DR/EC) 40 mg PO BID zolpidem 5 mg tablet 5 mg PO BEDTIME PRN (Reason: Sleep) mirtazapine 15 mg tablet 15 mg PO BEDTIME gabapentin 100 mg capsule 100 mg PO TID ondansetron 4 mg tablet,disintegrating 4 mg PO Q6H PRN (Reason: Nausea And Vomiting) Vitamin Plus Low Iron 27 mg iron- 1 mg tablet 1 tab PO DAILY Discharge Orders: Discharge ED (Routine); Ordered 04/26/23 Ordered By: Jeremias Patiño Referrals: Mark Wong DO [Primary Care Provider] - 1-3 days Discharge Diet: Advance as tolerated Discharge Activity: Increase activity as tolerated Patient Instructions: Abuse of Alcohol (ED), Polysubstance Use Disorder (ED), Alcohol Use Disorder (ED) Activity Restrictions/Additional Instructions: It is advised that you need to contact and further follow-up with primary care doctor for further referral for drug and alcohol rehab locations. Please return the interim if any of your symptoms persist or worse. Coding Level of Care Code ED Farm Marketer for Abisai Fermin
[2023-04-26] MEDS: sodium chloride 0.9% 1,000 ML 999 ML IV ×2 (09:05→10:15)
[2023-04-26] MEDS: folic acid 1 MG, multivitamin inj 10 ML, thiamine 100 MG in sodium chloride 0.9% 1,000 ML 252.8 MG IV (09:05)
[2023-04-26 09:09] LABS: Basophils % 0.8 %; Eosinophils # 0.2 10^3/uL (0.0-0.8); Eosinophils % 3.7 %; Hematocrit 42.6 % (42.0-52.0); Hemoglobin 14.1 g/dL (11.7-16.6); Lymphocytes # 1.3 10^3/uL (0.8-4.8); Mean Corpuscular HGB Conc 33.1 g/dL (30.0-36.0); Mean Corpuscular Hemoglobin 29.9 pg (28.0-34.0); Mean Corpuscular Volume 90.3 fl (80-94); Mean Platelet Volume 9.2 fL (7.4-10.4); Monocytes # 0.4 10^3/uL (0.2-0.9); Monocytes % 8.5 %; Neutrophils # 3.19 10^3/uL (1.8-7.7); Neutrophils % 61.8 %; Nucleated Red Blood Cells % 0 %; Platelet Count 393 10^3/cmm (130-400); Red Blood Count 4.72 10^6/uL (4.1-5.3); Red Cell Distribution Width 14.8 % (12.1-15.1); White Blood Count 5.2 10^3/uL (4.0-10.0)
[2023-04-26 09:24] LABS: Add Urine Microscopic? NO; Charge for UA Resulting for Rev
[2023-04-26 09:26] LABS: Bilirubin Urine Neg (Negative); Blood Urine Neg (Negative); Glucose Urine UA Norm (Normal); Ketones Urine Negative (Negative); Leukocyte Esterase Urine Negative (Negative); Nitrate Urine Negative (Negative); Protein Urine Neg (Negative); Specific Gravity, Urine 1.005 (1.005-1.030); Urine Appearance Clear (CLEAR); Urine Color Straw (Yellow); Urobilinogen Urine Norm (Negative); pH Urine 7 (5-7)
[2023-04-26 09:34] LABS: Alanine Aminotransferase 19 U/L (0-41); Albumin Level 4.6 g/dL (3.5-5.2); Alkaline Phosphatase 88 U/L (40-130); Aspartate Amino Transferase 34 U/L (0-40); Blood Urea Nitrogen 9 mg/dL (6-20); Calcium 8.8 mg/dL (8.5-10.5); Carbon Dioxide 29 mmol/L (22-29); Chloride 107 mmol/L (98-107); Glomerular Filtration Rate 120.4 mL/min (90-130); Glucose 118 mg/dL (65-115); Osmolality Calculated 304 mOsm/kg (285-295); Sodium 147 mmol/L (136-145); Total Bilirubin 0.2 mg/dL (0.15-1.2); Total Protein 7.6 g/dL (6.6-8.7)
[2023-04-26 09:35] LABS: Amphetamines Screen Urine Negative (Negative); Barbiturates Screen Urine Negative (Negative); Benzodiazepines Screen Urine Positive (Negative); Cocaine Screen Urine Negative (Negative); Opiate Screen Urine Negative (Negative); PCP Screen Urine Negative (Negative); THC Screen Urine Positive (Negative)
[2023-04-26 09:49] LABS: Anion Gap 14.9 (5-19); Potassium 3.9 mmol/L (3.5-5.1)
[2023-04-26 09:50] LABS: Alcohol Level 484 mg/dL (0-10)
[2023-04-26 12:37] VITALS: BP 106/69; PULSE 76; RESP 16; O2SAT 100
[2023-04-26 14:47] VITALS: BP 106/69; PULSE 76; RESP 16; O2SAT 100
== END 2023-04-26 14:50 | disposition home or self-care (01) ==
PROVIDERS: Emergency Provider Emergency Medicine; PCP Psychiatry & Neurology Psychiatry
DX: F10.20 Alcohol dependence, uncomplicated (principal); F12.90 Cannabis use, unspecified, uncomplicated; Y90.8 Blood alcohol level of 240 mg/100 ml or more
CPT/HCPCS: 70450; 71045; 80053; 80306; 80307; 81003; 85025; 96360; 99284; J3411; J3490; J7030

== ENCOUNTER 2023-04-26 16:38 | Emergency (ER) | payer MEDICAID, SELFPAY ==
[2023-04-26 16:42] VITALS: BP 119/75; PULSE 88; RESP 18; O2SAT 94
--- NOTE | 2023-04-26 16:46 | PC.PHAR ---
see pharmacy note from earlier today 04/25/23
--- NOTE | 2023-04-26 16:56 | W.ED.ALCOHOL ---
HPI - Alcohol General: Chief Complaint: Alcohol Stated Complaint: PSYCH EVAL Time Seen by Provider: 04/26/23 16:48 History of Present Illness: 47-year-old male recent seen in requesting rehab for alcohol abuse patient does not reporting being suicidal or homicidal reports no other associated symptoms. Patient was seen earlier today for acute alcohol intoxication provided with additional resources. Associated symptoms: Deny abdominal pain, depression, nausea or vomiting Review of Systems General: Reports: 10 or more systems reviewed and unremarkable except in HPI and below Const: Denies: fever(s), chills, fatigue or malaise Eyes: Denies: change in vision or blurry vision Card: Denies: chest pain or palpitations Resp: Denies: dyspnea or productive cough GI: Denies: abdominal pain, nausea or vomiting : Denies: flank pain Musc: Denies: extremity pain or extremity swelling Skin/Breast: Denies: rash or pruritus Neuro: Denies: headache(s) Psych: Denies: anxiety or depression Betito/Lymph: Denies: easy bleeding All/Imm: Denies: urticaria, throat swelling or facial swelling PFSH ED PFSH: Social History Smoking and tobacco status: current every day smoker Physical Exam Narrative: EXAM NARRATIVE: Mild smell of alcohol appreciated patient does demonstrate clinical sobriety with clear speech however and steady gait Const: COMMON NORMALS: no acute distress, patient oriented x3 and healthy appearing HENMT: COMMON NORMALS: normocephalic and atraumatic HEAD & SCALP: normocephalic and atraumatic Eye: COMMON NORMALS: Equal, round and reactive pupils present and EOMs intact bilaterally PUPIL: Yes Equal, round and reactive pupils present Neck/C-Spine: COMMON NORMALS: full ROM, supple and no JVD Lymph: LYMPHATIC: no lymphadenopathy noted Chest: COMMONS NORMALS: normal inspection of the chest and normal palpation of entire chest wall Resp: COMMON NORMALS: normal respiratory effort, No retractions and clear to auscultation bilaterally EFFORT & INSPECTION: Yes able to speak in complete sentences and Yes symmetric chest movement AUSCULTATION: clear to auscultation bilaterally Cardio: COMMON NORMALS: no JVD, regular rate and regular rhythm RATE: regular rate RHYTHM: regular rhythm GI: COMMON NORMALS: Normal to inspection, nondistended, normoactive bowel sounds present, Soft to palpation and non-tender INSPECTION: Yes normal to inspection PALPATION: Yes Soft to palpation : COMMON NORMALS: Yes no CVA tenderness BLADDER/KIDNEY EXAM: Yes no CVA tenderness Back/Pelvis: COMMON NORMALS: no CVA tenderness Extremity: COMMON NORMALS: normal to inspection and full ROM Neuro: COMMON NORMALS: patient oriented x3, CN's II-XII intact bilaterally, moves all extremities and no focal motor deficits Psych: COMMON NORMALS: mental status grossly normal, Normal thought process present, cooperative and normal affect THOUGHT PROCESS: Normal thought process present Skin: COMMON NORMALS: no rashes or lesions noted GENERAL SKIN EXAM: no rashes or lesions noted Course Vital Signs: Vital signs: Vital Signs Pulse Rate 88 04/26/23 16:42 Respiratory Rate 18 04/26/23 16:42 Blood Pressure 119/75 04/26/23 16:42 Pulse Oximetry 94 04/26/23 16:42 Oxygen Delivery Me thod Room Air 04/26/23 16:42 MDM - Alcohol Medical Decision Making Advised patient we do not have any drug or alcohol rehab facilities at our facility I could provide him additional resource management which patient can follow-up with the crisis stabilization unit for further help for his underlying issues. Patient during my exam to thrive tenderness department and was reported he is not homicidal nor suicidal. Discharge Plan Discharge Patient Disposition: Home Clinical Impression: Polysubstance abuse Condition: Stable Prescriptions: No Action naltrexone 50 mg tablet 50 mg PO DAILY hydroxyzine pamoate 50 mg capsule 50 mg PO QID PRN (Reason: Anxiety) pantoprazole 40 mg tablet,delayed release (DR/EC) 40 mg PO BID zolpidem 5 mg tablet 5 mg PO BEDTIME PRN (Reason: Sleep) mirtazapine 15 mg tablet 15 mg PO BEDTIME gabapentin 100 mg capsule 100 mg PO TID ondansetron 4 mg tablet,disintegrating 4 mg PO Q6H PRN (Reason: Nausea And Vomiting) Vitamin Plus Low Iron 27 mg iron- 1 mg tablet 1 tab PO DAILY Discharge Orders: Discharge ED (Routine); Ordered 04/26/23 Ordered By: Jeremias Patiño Referrals: Mark Wong DO [Primary Care Provider] - 1-3 days Activity Restrictions/Additional Instructions: Upon being discharged to the ER you can go to a crisis stabilization unit for further resource management for your request for drug and or alcohol rehab opportunities. Coding Level of Care Code ED Outpatient Interviewing Clerk for Abisai Fermin
== END 2023-04-26 17:43 | disposition home or self-care (01) ==
PROVIDERS: Emergency Provider Emergency Medicine; PCP Psychiatry & Neurology Psychiatry
DX: F19.10 Other psychoactive substance abuse, uncomplicated (principal); F10.10 Alcohol abuse, uncomplicated
CPT/HCPCS: 99283

== ENCOUNTER 2023-04-26 20:02 | Emergency (ER) | payer MEDICAID, SELFPAY ==
[2023-04-26 20:04] VITALS: BP 130/80; PULSE 82; RESP 16; TEMP 36.7; O2SAT 95
[2023-04-26 20:52] LABS: Add Urine Microscopic? NO; Charge for UA Resulting for Rev
[2023-04-26 21:03] LABS: Amphetamines Screen Urine Negative (Negative); Barbiturates Screen Urine Negative (Negative); Benzodiazepines Screen Urine Positive (Negative); Cocaine Screen Urine Negative (Negative); Opiate Screen Urine Negative (Negative); PCP Screen Urine Negative (Negative); THC Screen Urine Positive (Negative)
[2023-04-26 21:05] LABS: Bilirubin Urine Neg (Negative); Blood Urine Neg (Negative); Glucose Urine UA Norm (Normal); Ketones Urine Negative (Negative); Leukocyte Esterase Urine Negative (Negative); Nitrate Urine Negative (Negative); Protein Urine Neg (Negative); Specific Gravity, Urine 1.005 (1.005-1.030); Urine Appearance Clear (CLEAR); Urine Color Colorless (Yellow); Urobilinogen Urine Norm (Negative); pH Urine 6 (5-7)
--- NOTE | 2023-04-26 21:17 | W.ED.PSYCHS ---
HPI - Psych General: Chief Complaint: Psychiatric Symptoms Stated Complaint: SI, ETOH Time Seen by Provider: 04/26/23 20:38 Source: patient Mode of arrival: EMS History of Present Illness: 47-year-old male presents emergency room highly intoxicated. Patient arrives via EMS. He has been to the ER multiple times last few days he has been highly intoxicated each time his blood alcohol is averaging over 400 when checked. He admits to passive thoughts of suicidal ideation but denies any suicidal ideation at this time he states he does not want to hurt himself or anyone else. He readily admits to heavily drinking. He denies any hematochezia melena hematemesis or coffee-ground emesis denies any abdominal pain denies any other injuries. Associated symptoms: Reports depression; Deny auditory hallucinations, visual hallucinations, homicidal ideation or suicidal ideation Treatments prior to arrival: none Review of Systems Const: Denies: fever(s) or chills ENMT: Denies: throat pain, ear or mastoid pain or nasal congestion Card: Denies: chest pain Resp: Denies: dyspnea GI: Denies: abdominal pain, nausea, vomiting, hematemesis, coffee ground emesis, diarrhea, hematochezia or melena : Denies: flank pain, dysuria, urinary frequency or urinary urgency Skin/Breast: Denies: rash or pruritus Psych: Reports: depression; Denies: visual hallucinations, auditory hallucinations, suicidal ideation or homicidal ideation [facility] ED PFSH: Medical History (Updated 04/28/23 @ 07:46 by Jose Ramon Bhat DO) Depressive disorder Polysubstance abuse Social History (Updated 04/28/23 @ 07:47 by Jose Ramon Bhat DO) Smoking and tobacco status: current every day smoker Alcohol intake: current Alcohol intake frequency: 3 or more drinks per day Alcohol type: hard liquor Desire information about alcohol rehabilitation?: Yes Counseling given: Yes Physical Exam Const: GENERAL APPEARANCE: cooperative and comfortable ORIENTATION/CONSCIOUSNESS: Yes awake HENMT: COMMON NORMALS: normocephalic, atraumatic and hearing grossly normal bilaterally HEAD & SCALP: normocephalic and atraumatic Resp: COMMON NORMALS: normal respiratory effort, No retractions, No use of accessory muscles and clear to auscultation bilaterally AUSCULTATION: clear to auscultation bilaterally Cardio: COMMON NORMALS: regular rate, regular rhythm and No murmurs present (Cardio) RATE: regular rate RHYTHM: regular rhythm GI: COMMON NORMALS: Soft to palpation and No hepatosplenomegaly present AUSCULTATION: Yes normoactive bowel sounds PALPATION: Yes Soft to palpation, No Tenderness to palpation present (GI), No Guarding due to palpation present (GI) and Yes No hepatosplenomegaly present Extremity: COMMON NORMALS: normal to inspection, capillary refill normal, no clubbing, cyanosis or edema, no calf tenderness and no pedal edema Skin: COMMON NORMALS: no rashes or lesions noted GENERAL SKIN EXAM: no rashes or lesions noted Course Vital Signs: Vital signs: Vital Signs Temperature 98.1 F 04/26/23 20:04 Pulse Rate 61 04/27/23 09:04 Respiratory Rate 16 04/27/23 05:43 Blood Pressure 147/84 04/27/23 09:04 Pulse Oximetry 97 04/27/23 09:04 Oxygen Delivery Me thod Room Air 04/27/23 09:04 [facility] - Psych Medical Decision Making Patient is highly intoxicated. His blood alcohol average last several days on its been checked when he was here has been well over 400. Patient denies any suicidal or homicidal ideation he is strikingly functional despite his blood alcohol level. He expresses some interest in stopping drinking but only passing interest. When pressed on details about pursuing abstinence from alcohol patient equivocates. He wants to be discharged. During repeated conversations he denies homicidal or suicidal intent. We made several calls attempting to find family or friend who could bring him home were not able to make any contact with anyone who lives in this area. Patient is sleeping this time I will allow him to sleep and when he is ready to leave the department he can be discharged. Reassess if his change in condition or symptoms. Encouraged alcohol abstinence. Patient has upcoming appointment with [facility] to evaluate for some form of treatment program per his report. Medical Records I reviewed the patient's medical records. Lab Data I reviewed the patient's lab results. Laboratory Results Urine Color Colorless (Yellow) 04/26/23 20:46 Urine Appearance Clear (CLEAR) 04/26/23 20:46 Urine pH 6 (5-7) 04/26/23 20:46 Ur Specific [place] 1.005 (1.005-1.030) 04/26/23 20:46 Urine Protein Neg (Negative) 04/26/23 20:46 Urine Glucose (UA) Norm (Normal) 04/26/23 20:46 Urine Ketones Negative (Negative) 04/26/23 20:46 Urine Blood Neg (Negative) 04/26/23 20:46 Urine Nitrate Negative (Negative) 04/26/23 20:46 Urine Bilirubin Neg (Negative) 04/26/23 20:46 Urine Urobilinogen Norm mg/dL (Negative) 04/26/23 20:46 Ur Leukocyte Esterase Negative (Negative) 04/26/23 20:46 Urine Opiates Screen Negative ng/mL (Negative) 04/26/23 20:46 Ur Barbiturates Screen Negative ng/mL (Negative) 04/26/23 20:46 Ur Phencyclidine Scrn Negative ng/mL (Negative) 04/26/23 20:46 Ur Amphetamines Screen Negative ng/mL (Negative) 04/26/23 20:46 U Benzodiazepines Scrn Positive ng/mL (Negative) H 04/26/23 20:46 Urine Cocaine Screen Negative ng/mL (Negative) 04/26/23 20:46 U Marijuana (THC) Screen Positive ng/mL (Negative) H 04/26/23 20:46 Ethyl Alcohol 431 mg/dL (0-10) H* 04/26/23 21:42 Discharge Plan Discharge Patient Disposition: Home Clinical Impression: Alcoholic intoxication, Alcohol use disorder Condition: Stable Prescriptions: No Action naltrexone 50 mg tablet 50 mg PO DAILY hydroxyzine pamoate 50 mg capsule 50 mg PO QID PRN (Reason: Anxiety) pantoprazole 40 mg tablet,delayed release (DR/EC) 40 mg PO BID zolpidem 5 mg tablet 5 mg PO BEDTIME PRN (Reason: Sleep) mirtazapine 15 mg tablet 15 mg PO BEDTIME gabapentin 100 mg capsule 100 mg PO TID ondansetron 4 mg tablet,disintegrating 4 mg PO Q6H PRN (Reason: Nausea And Vomiting) Vitamin Plus Low Iron 27 mg iron- 1 mg tablet 1 tab PO DAILY Discharge Orders: Discharge ED (Routine); Ordered 04/26/23 Ordered By: Jose Ramon Bhat Referrals: Mark Wong DO [Primary Care Provider] - Patient Instructions: Alcohol Intoxication (ED), Abuse of Alcohol (ED), Opioid Safety, Pain Management Coding Level of Care Code ED Processor Solid [employer]ellant for Abisai Fermin
--- NOTE | 2023-04-26 21:28 | PC.NURSE ---
attempted to call Cristobal to get pt ride home, Cristobal is going to call pt's brother and will call back with update.
--- NOTE | 2023-04-26 21:55 | PC.NURSE ---
Brother called and states that the patient is mentally unstable and suicidal after getting a divorce 2 months ago and his daughter disowning him. Brother states that he and his sister have been working with a publishing systems analyst in [place] to get the patient on a 96 hour hold, but patient disappeared and they have not been able to find him. Brother states that the patient has history of drug and alcohol abuse.
[2023-04-26 22:19] LABS: Alcohol Level 431 mg/dL (0-10)
[2023-04-27 02:19] VITALS: BP 131/88; PULSE 65; RESP 19; O2SAT 100
[2023-04-27 03:44] VITALS: RESP 18
--- NOTE | 2023-04-27 03:50 | PC.NURSE ---
pt appears to be resting with no acute distress noted. pt responds to verbal commands.
[2023-04-27 05:43] VITALS: RESP 16; O2SAT 100
--- NOTE | 2023-04-27 05:47 | PC.NURSE ---
pt currently appears to be resting with bilateral equal chest rise, no acute distress at this time. pt is up for discharge, waiting on ride at this time.
--- NOTE | 2023-04-27 07:57 | PC.PHAR ---
pt was here twice on 04/26/23 and unable to verify medications-medications entered are meds that show have been filled recently on ext med history-see pharmacy notes from previous visits
[2023-04-27 09:04] VITALS: BP 147/84; PULSE 61; O2SAT 97
== END 2023-04-27 09:56 | disposition home or self-care (01) ==
PROVIDERS: Emergency Provider Family Medicine; PCP Psychiatry & Neurology Psychiatry
DX: F10.129 Alcohol abuse with intoxication, unspecified (principal); Y90.8 Blood alcohol level of 240 mg/100 ml or more
CPT/HCPCS: 36415; 80306; 80307; 81003; 99283

== ENCOUNTER 2023-04-27 21:26 | Emergency (ER) | payer MEDICAID, SELFPAY ==
[2023-04-27 21:36] VITALS: BP 159/97; PULSE 106; RESP 18; TEMP 36.6; O2SAT 97; BMI 22.9
[2023-04-28 00:04] LABS: Basophils # 0.1 10^3/uL (0.0-0.1); Basophils % 0.6 %; Eosinophils # 0.1 10^3/uL (0.0-0.8); Eosinophils % 0.9 %; Hematocrit 39.2 % (42.0-52.0); Lymphocytes # 1.2 10^3/uL (0.8-4.8); Lymphocytes % 12.9 %; Mean Corpuscular HGB Conc 33.2 g/dL (30.0-36.0); Mean Corpuscular Hemoglobin 29.7 pg (28.0-34.0); Mean Corpuscular Volume 89.5 fl (80-94); Mean Platelet Volume 9.7 fL (7.4-10.4); Monocytes # 0.8 10^3/uL (0.2-0.9); Monocytes % 8.9 %; Neutrophils # 6.85 10^3/uL (1.8-7.7); Neutrophils % 76.4 %; Nucleated Red Blood Cells % 0 %; Platelet Count 359 10^3/cmm (130-400); Red Blood Count 4.38 10^6/uL (4.1-5.3); Red Cell Distribution Width 14.6 % (12.1-15.1)
[2023-04-28 00:13] LABS: Alanine Aminotransferase 19 U/L (0-41); Albumin Level 5.1 g/dL (3.5-5.2); Alcohol Level < 10 mg/dL (0-10); Alkaline Phosphatase 100 U/L (40-130); Anion Gap 18.8 (5-19); Aspartate Amino Transferase 39 U/L (0-40); Blood Urea Nitrogen 12 mg/dL (6-20); Calcium 10.2 mg/dL (8.5-10.5); Carbon Dioxide 29 mmol/L (22-29); Chloride 92 mmol/L (98-107); Creatinine Clr Calc Pharmacy 132.9437; Glomerular Filtration Rate 120.4 mL/min (90-130); Glucose 104 mg/dL (65-115); Osmolality Calculated 282 mOsm/kg (285-295); Potassium 3.8 mmol/L (3.5-5.1); Sodium 136 mmol/L (136-145); Total Bilirubin 0.7 mg/dL (0.15-1.2); Total Protein 8.1 g/dL (6.6-8.7)
[2023-04-28 00:42] VITALS: BP 93/50; PULSE 60; RESP 22; O2SAT 99
[2023-04-28] MEDS: LORazepam 2 mg/mL INJ 1 mL IVP (01:32)
[2023-04-28] MEDS: famotidine 20 mg/2 mL INJ IVP (01:32)
[2023-04-28] MEDS: aluminum-mag hydrox-simethicon 30 ML, sucralfate oral liq 1 GM PO (01:32)
--- NOTE | 2023-04-28 01:49 | ED_ITS ---
HPI - Alcohol General: Chief Complaint: Alcohol Stated Complaint: alc withdraw History of Present Illness: 47-year-old male with a history of alcohol abuse. Has been seen several times i n the last several days, essentially multiple times per day. This time, he presents sober. He is afraid of going into withdrawal. Currently he is mildly shaky, he has a headache, some indigestion, but no hallucinations. He is not vomiting. Associated symptoms: Reports abdominal pain and nausea; Deny vomiting Review of Systems Const: Denies: fever(s) Eyes: Denies: change in vision ENMT: Denies: throat pain Card: Denies: chest pain Resp: Denies: dyspnea GI: Reports: abdominal pain and nausea; Denies: vomiting Musc: Denies: neck pain Neuro: Reports: headache(s); Denies: numbness in extremities or weakness in extremities Psych: Reports: anxiety [facility] ED PFSH: Social History Smoking and tobacco status: current every day smoker Physical Exam Const: COMMON NORMALS: no acute distress GENERAL APPEARANCE: cooperative; not ill appearing and not frail appearing HENMT: COMMON NORMALS: normocephalic, atraumatic and Normal external nose present HEAD & SCALP: normocephalic and atraumatic FACE & SINUS: normal facial exam and face symmetric NOSE: Normal external nose present Eye: COMMON NORMALS: Equal, round and reactive pupils present and EOMs intact bilaterally PUPIL: Yes Equal, round and reactive pupils present Neck/C-Spine: GENERAL: Yes trachea midline Chest: CHEST: Yes Symmetrical chest wall rise Resp: COMMON NORMALS: normal respiratory effort, No retractions, No use of accessory muscles and clear to auscultation bilaterally AUSCULTATION: clear to auscultation bilaterally Cardio: COMMON NORMALS: regular rate and regular rhythm RATE: regular rate RHYTHM: regular rhythm GI: COMMON NORMALS: Normal to inspection, nondistended, normoactive bowel sounds present Extremity: COMMON NORMALS: no pedal edema Neuro: IRENE COMA SCALE: document GCS findings [place] coma scale eye opening: Spontaneous [place] coma scale verbal response: Orientated [place] coma scale motor response: Obey commands [place] coma scale total score: 15 SENSORY EXAM: Yes extremities (intact) Psych: COMMON NORMALS: speech normal SPEECH: Yes normal speech Skin: COMMON NORMALS: no rashes or lesions noted GENERAL SKIN EXAM: no rashes or lesions noted Course Vital Signs: Vital signs: Vital Signs Temperature 97.9 F 04/27/23 21:36 Pulse Rate 87 04/28/23 02:10 Respiratory Rate 18 04/28/23 02:10 Blood Pressure 116/64 04/28/23 02:10 Pulse Oximetry 97 04/28/23 02:10 Oxygen Delivery Me thod Room Air 04/28/23 00:42 MDM - Alcohol Medical Decision Making The patient is calm and cooperative on exam. Laboratory is essentially unremarkable. Ethyl alcohol is less than 10. He is mildly tremulous. He is g [facility] for this. Reflux is treated with GI cocktail and Pepcid he tells me he has an appointment in the morning with behavioral health for inpatient rehab referral. I think this is an excellent idea. He will be discharged outpatient follow-up in the morning Lab Data 04/27/23 23:15 04/27/23 23:15 Laboratory Results WBC 9.0 10^3/uL (4.0-10.0) 04/27/23 23:15 RBC 4.38 10^6/uL (4.1-5.3) 04/27/23 23:15 Hgb 13.0 g/dL (11.7-16.6) 04/27/23 23:15 Hct 39.2 % (42.0-52.0) L 04/27/23 23:15 MCV 89.5 fl (80-94) 04/27/23 23:15 MCH 29.7 pg (28.0-34.0) 04/27/23 23:15 MCHC 33.2 g/dL (30.0-36.0) 04/27/23 23:15 RDW 14.6 % (12.1-15.1) 04/27/23 23:15 Plt Count 359 10^3/cmm (130-400) 04/27/23 23:15 MPV 9.7 fL (7.4-10.4) 04/27/23 23:15 Neut % (Auto) 76.4 % 04/27/23 23:15 Lymph % (Auto) 12.9 % 04/27/23 23:15 [place] % (Auto) 8.9 % 04/27/23 23:15 Eos % (Auto) 0.9 % 04/27/23 23:15 Baso % (Auto) 0.6 % 04/27/23 23:15 Neut # (Auto) 6.85 10^3/uL (1.8-7.7) 04/27/23 23:15 Lymph # (Auto) 1.2 10^3/uL (0.8-4.8) 04/27/23 23:15 [place] # (Auto) 0.8 10^3/uL (0.2-0.9) 04/27/23 23:15 Eos # (Auto) 0.1 10^3/uL (0.0-0.8) 04/27/23 23:15 Baso # (Auto) 0.1 10^3/uL (0.0-0.1) 04/27/23 23:15 Nucleated RBC % (auto) 0 % 04/27/23 23:15 Nucleated RBCs # 0.0 /100WBC 04/27/23 23:15 Sodium 136 mmol/L (136-145) 04/27/23 23:15 Potassium 3.8 mmol/L (3.5-5.1) 04/27/23 23:15 Chloride 92 mmol/L (98-107) L 04/27/23 23:15 Carbon Dioxide 29 mmol/L (22-29) 04/27/23 23:15 Anion Gap 18.8 (5-19) 04/27/23 23:15 BUN 12 mg/dL (6-20) 04/27/23 23:15 Creatinine 0.7 mg/dL (0.7-1.2) 04/27/23 23:15 GFR Calculation 120.4 mL/min (90-130) 04/27/23 23:15 Glucose 104 mg/dL (65-115) 04/27/23 23:15 Calculated Osmolality 282 mOsm/kg (285-295) L 04/27/23 23:15 Calcium 10.2 mg/dL (8.5-10.5) 04/27/23 23:15 Total Bilirubin 0.7 mg/dL (0.15-1.2) 04/27/23 23:15 AST 39 U/L (0-40) 04/27/23 23:15 ALT 19 U/L (0-41) 04/27/23 23:15 Alkaline Phosphatase 100 U/L (40-130) 04/27/23 23:15 Total Protein 8.1 g/dL (6.6-8.7) 04/27/23 23:15 Albumin 5.1 g/dL (3.5-5.2) 04/27/23 23:15 Globulin 3.0 g/dL (1.3-4.6) 04/27/23 23:15 Ethyl Alcohol < 10 mg/dL (0-10) 04/27/23 23:15 Discharge Plan Discharge Patient Disposition: Home Clinical Impression: Alcohol use disorder Condition: Stable Prescriptions: No Action naltrexone 50 mg tablet 50 mg PO DAILY hydroxyzine pamoate 50 mg capsule 50 mg PO QID PRN (Reason: Anxiety) pantoprazole 40 mg tablet,delayed release (DR/EC) 40 mg PO BID zolpidem 5 mg tablet 5 mg PO BEDTIME PRN (Reason: Sleep) mirtazapine 15 mg tablet 15 mg PO BEDTIME gabapentin 100 mg capsule 100 mg PO TID ondansetron 4 mg tablet,disintegrating 4 mg PO Q6H PRN (Reason: Nausea And Vomiting) Vitamin Plus Low Iron 27 mg iron- 1 mg tablet 1 tab PO DAILY Discharge Orders: Discharge ED (Routine); Ordered 04/28/23 Ordered By: Torey Kumar Referrals: Mark Wong DO [Primary Care Provider] - 1-3 days Patient Instructions: Alcohol Dependence (ED) Activity Restrictions/Additional Instructions: Report to your [facility] appointment in the morning as scheduled. Coding Level of Care Code ED Talent Development Coordinator for Abisai Fermin
[2023-04-28 02:10] VITALS: BP 116/64; PULSE 87; RESP 18; O2SAT 97
== END 2023-04-28 02:13 | disposition home or self-care (01) ==
PROVIDERS: Emergency Provider Emergency Medicine; PCP Psychiatry & Neurology Psychiatry
DX: F10.90 Alcohol use, unspecified, uncomplicated (principal); F17.210 Nicotine dependence, cigarettes, uncomplicated; Y90.0 Blood alcohol level of less than 20 mg/100 ml
CPT/HCPCS: 80053; 80307; 85025; 96374; 96375; 99284; J2060; J3490

== ENCOUNTER 2023-04-29 13:02 | Emergency (ER) | payer MEDICAID, SELFPAY ==
[2023-04-29 13:07] VITALS: BP 153/80; PULSE 121; RESP 18; TEMP 36.6; O2SAT 96; BMI 23.0
--- NOTE | 2023-04-29 13:24 | ED_ITS ---
HPI - Alcohol General: Chief Complaint: Alcohol Stated Complaint: alcohol withdrawal Time Seen by Provider: 04/29/23 13:04 Source: patient Mode of arrival: ambulatory Limitations: no limitations History of Present Illness: Patient is a 47-year-old male presents to ED today with a complaint of alcohol w ithdrawal. Patient has been seen multiple times in our emergency department just over the past 2 weeks. He states his last alcoholic drink was the last time I was here . Looking at documentation that was about a day or so ago. He states he is currently living at a homeless long term that is near [facility] and walks there daily for AA meetings. He states he is on their waiting list and believes he will have a bed there for their rehabilitation in approximately 2 weeks. Patient states he feels very tremulous and is having nausea and vomiting. States he is also having trouble sleeping. MD complaint: alcohol withdrawal and alcohol dependence Last drink: Days (ago) Chronic alcohol use: Yes Previous visits for alcohol intoxication: Yes Recent trauma: No Associated symptoms: Reports diaphoresis, nausea and vomiting; Deny abdominal pain or syncope Treatments prior to arrival: none Review of Systems Const: Reports: diaphoresis; Denies: fever(s), chills, fatigue or malaise Eyes: Denies: change in vision, blurry vision, photophobia, floaters or seeing flashes Card: Denies: chest pain, palpitations, irregular heart rhythm, edema, swelling of feet/ankles, lightheadedness, syncope or pre-syncope Resp: Denies: dyspnea, productive cough or non-productive cough GI: Reports: nausea and vomiting; Denies: abdominal pain or diarrhea Musc: Denies: neck pain, back pain, extremity pain or joint pain Skin/Breast: Denies: rash Neuro: Denies: headache(s), numbness in extremities, weakness in extremities, sensory changes or dizziness Psych: Reports: anxiety and difficulty concentrating PFSH ED PFSH: Medical History Depressive disorder Polysubstance abuse Social History Smoking and tobacco status: current every day smoker Alcohol intake: current Alcohol intake frequency: 3 or more drinks per day Alcohol type: hard liquor Desire information about alcohol rehabilitation?: Yes Counseling given: Yes Physical Exam Const: COMMON NORMALS: average body habitus, patient oriented x3, no limit ations, healthy appearing, alert and well nourished GENERAL APPEARANCE: c ooperative, anxious and other (diaphoretic) ORIENTATION/CONSCIOUSNESS: Yes awake, Yes oriented to person, Yes oriented to place and Yes oriented to time HENMT: COMMON NORMALS: normocephalic and atraumatic HEAD & SCALP: normal to inspection, normocephalic and atraumatic Eye: GENERAL EYE: appearance normal, both eyes and all related structures and normal light reflex DIRECT OPHTHALMOSCOPY: Yes normal light reflex Resp: COMMON NORMALS: normal respiratory effort and clear to auscultation bilaterally AUSCULTATION: clear to auscultation bilaterally Cardio: COMMON NORMALS: regular rhythm RATE: tachycardic RHYTHM: regular rhythm GI: COMMON NORMALS: Normal to inspection, nondistended, normoactive bowel sounds present, Soft to palpation and non-tender PALPATION: Yes Soft to palpation Extremity: COMMON NORMALS: normal to inspection GENERAL: Yes normal exam ex cept as noted Neuro: IRENE COMA SCALE: document GCS findings [place] coma scale eye opening: Spontaneous [place] coma scale verbal response: Orientated [place] coma scale motor response: Obey commands [place] coma scale total score: 15 COMMON NORMALS: patient oriented x3, CN's II-XII intact bilaterally, moves all ex tremities, no focal motor deficits, no sensory deficits noted and gait normal SENSORIUM/ORIENTATION: Yes alert, Yes oriented to person, Yes oriented to place and Yes oriented to time Psych: COMMON NORMALS: cooperative, denies homicidal ideation and denies suicidal ideation ATTITUDE: Yes engaged ACTIVITY/MOTOR BEHAVIOR: Yes appropriate eye contact MEMORY/COGNITION: Yes memory grossly intact and Yes cognition grossly intact INSIGHT: Good insight present (Psych) JUDGEMENT: Good judgement present (Psych) Skin: COMMON NORMALS: no rashes or lesions noted GENERAL SKIN EXAM: no rashes or lesions noted Course Vital Signs: Vital signs: Vital Signs Temperature 97.9 F 04/29/23 13:07 Pulse Rate 82 04/29/23 15:28 Respiratory Rate 18 04/29/23 14:49 Blood Pressure 122/83 04/29/23 15:28 Pulse Oximetry 99 04/29/23 15:28 Oxygen Delivery Me thod Room Air 04/29/23 14:49 MDM - Alcohol Medical Decision Making Patient with complaints of alcohol withdrawal symptoms. On initial examination he is clearly tremulous. He arrives tachycardic. He was complaining of nausea and vomiting as well as trouble sleeping. CIWA score at this time was in mild- mod range. Patient was given IV Ativan with significant improvement. Patient states he feels comfortable going home. He is requesting a prescription to help with withdrawal symptoms. I will place him on a 4-day Librium taper. Encouraged him to continue current plan for [facility] for further alcohol rehabilitation. Strict return ED precautions given. Lab Data 04/29/23 14:40 04/29/23 14:40 Laboratory Results WBC 5.30 10^3/uL (3.29-11.43) 04/29/23 14:40 RBC 4.73 10^6/uL (3.85-5.65) 04/29/23 14:40 Hgb 14.00 g/dL (11.27-16.99) 04/29/23 14:40 Hct 42.2 % (37-53) 04/29/23 14:40 MCV 89.2 fl (82-101) 04/29/23 14:40 MCH 29.6 pg (27-33) 04/29/23 14:40 MCHC 33.2 g/dL (30-55) 04/29/23 14:40 RDW 14.4 % (12.1-15.1) 04/29/23 14:40 Plt Count 335 10^3/cmm (157-399) 04/29/23 14:40 MPV 9.5 fL (7.4-10.4) 04/29/23 14:40 Neut % (Auto) 76.0 % 04/29/23 14:40 Lymph % (Auto) 12.1 % 04/29/23 14:40 [place] % (Auto) 10.0 % 04/29/23 14:40 Eos % (Auto) 0.9 % 04/29/23 14:40 Baso % (Auto) 0.8 % 04/29/23 14:40 Neut # (Auto) 4.03 10^3/uL (1.8-7.7) 04/29/23 14:40 Lymph # (Auto) 0.6 10^3/uL (0.8-4.8) L 04/29/23 14:40 [place] # (Auto) 0.5 10^3/uL (0.2-0.9) 04/29/23 14:40 Eos # (Auto) 0.1 10^3/uL (0.0-0.8) 04/29/23 14:40 Baso # (Auto) 0.0 10^3/uL (0.0-0.1) 04/29/23 14:40 Nucleated RBC % (auto) 0 % 04/29/23 14:40 Nucleated RBCs # 0.0 /100WBC 04/29/23 14:40 Sodium 138 mmol/L (136-145) 04/29/23 14:40 Potassium 4.0 mmol/L (3.5-5.1) 04/29/23 14:40 Chloride 100 mmol/L (98-107) 04/29/23 14:40 Carbon Dioxide 26 mmol/L (22-29) 04/29/23 14:40 Anion Gap 16.0 (5-19) 04/29/23 14:40 BUN 18 mg/dL (6-20) 04/29/23 14:40 Creatinine 1.0 mg/dL (0.7-1.2) 04/29/23 14:40 GFR Calculation 79.8 mL/min (90-130) L 04/29/23 14:40 Glucose 112 mg/dL (65-115) 04/29/23 14:40 Calculated Osmolality 289 mOsm/kg (285-295) 04/29/23 14:40 Calcium 9.6 mg/dL (8.5-10.5) 04/29/23 14:40 Total Bilirubin 0.6 mg/dL (0.15-1.2) 04/29/23 14:40 AST 30 U/L (0-40) 04/29/23 14:40 ALT 18 U/L (0-41) 04/29/23 14:40 Alkaline Phosphatase 102 U/L (40-130) 04/29/23 14:40 Total Protein 7.7 g/dL (6.6-8.7) 04/29/23 14:40 Albumin 4.9 g/dL (3.5-5.2) 04/29/23 14:40 Globulin 2.8 g/dL (1.3-4.6) 04/29/23 14:40 Discharge Plan Discharge Patient Disposition: Home Clinical Impression: Chronic alcohol abuse Alcohol withdrawal Qualifiers: Complication of substance-induced condition: uncomplicated Qualified Code(s): F10.930 - Alcohol use, unspecified with withdrawal, uncomplicated Condition: Stable Prescriptions: New chlordiazepoxide HCl 25 mg capsule See Rx Instructions .ROUTE .COMPLEX Qty: 27 0RF Rx Instructions: Take 4 tabs q 6 hours on day 1. Take 2 tabs q 8 hours on day 2. Take 2 tabs q 12 hours on day 3. Take one tab daily on day 4. Continued mirtazapine 15 mg tablet 15 mg PO BEDTIME Qty: 14 0RF No Action naltrexone 50 mg tablet 50 mg PO DAILY hydroxyzine pamoate 50 mg capsule 50 mg PO QID PRN (Reason: Anxiety) pantoprazole 40 mg tablet,delayed release (DR/EC) 40 mg PO BID zolpidem 5 mg tablet 5 mg PO BEDTIME PRN (Reason: Sleep) gabapentin 100 mg capsule 100 mg PO TID ondansetron 4 mg tablet,disintegrating 4 mg PO Q6H PRN (Reason: Nausea And Vomiting) Vitamin Plus Low Iron 27 mg iron- 1 mg tablet 1 tab PO DAILY Discharge Orders: Discharge ED (Routine); Ordered 04/29/23 Ordered By: Lisa Ventura Referrals: Mark Wong DO [Primary Care Provider] - Patient Instructions: Alcohol Withdrawal (DC) Activity Restrictions/Additional Instructions: As we discussed you need to continue to abstain from alcohol use. The Librium prescription will help with symptoms over the next several days. Do not drink while taking this medication. Continue current plan for rehabilitation at [facility]. Coding Level of Care Code ED Analysis Consultant for Abisai Fermin
[2023-04-29] MEDS: sodium chloride 0.9% 1,000 ML 999 ML IV (14:44)
[2023-04-29] MEDS: LORazepam 2 mg/mL INJ 1 mL IVP (14:44)
[2023-04-29 14:49] VITALS: BP 122/82; PULSE 80; RESP 18; O2SAT 95
[2023-04-29 14:52] LABS: Basophils % 0.8 %; Eosinophils # 0.1 10^3/uL (0.0-0.8); Eosinophils % 0.9 %; Hematocrit 42.2 % (37-53); Lymphocytes # 0.6 10^3/uL (0.8-4.8); Lymphocytes % 12.1 %; Mean Corpuscular HGB Conc 33.2 g/dL (30-55); Mean Corpuscular Hemoglobin 29.6 pg (27-33); Mean Corpuscular Volume 89.2 fl (82-101); Mean Platelet Volume 9.5 fL (7.4-10.4); Monocytes # 0.5 10^3/uL (0.2-0.9); Neutrophils # 4.03 10^3/uL (1.8-7.7); Nucleated Red Blood Cells % 0 %; Platelet Count 335 10^3/cmm (157-399); Red Blood Count 4.73 10^6/uL (3.85-5.65); Red Cell Distribution Width 14.4 % (12.1-15.1)
--- NOTE | 2023-04-29 14:57 | PC.PHAR ---
pt states he never got any of the medications entered-called [facility] [phone] states the meds were taken to the floor before discharge talked to charge nurse lesli states if pt left [facility] or was discharged he got the meds if the pharmacy took them to the floor-amanda gaona said to leave the medications in that have been filled recently
[2023-04-29 15:03] LABS: Alanine Aminotransferase 18 U/L (0-41); Albumin Level 4.9 g/dL (3.5-5.2); Alkaline Phosphatase 102 U/L (40-130); Aspartate Amino Transferase 30 U/L (0-40); Blood Urea Nitrogen 18 mg/dL (6-20); Calcium 9.6 mg/dL (8.5-10.5); Carbon Dioxide 26 mmol/L (22-29); Chloride 100 mmol/L (98-107); Globulin 2.8 g/dL (1.3-4.6); Glomerular Filtration Rate 79.8 mL/min (90-130); Glucose 112 mg/dL (65-115); Osmolality Calculated 289 mOsm/kg (285-295); Sodium 138 mmol/L (136-145); Total Bilirubin 0.6 mg/dL (0.15-1.2); Total Protein 7.7 g/dL (6.6-8.7)
[2023-04-29 15:28] VITALS: BP 122/83; PULSE 82; O2SAT 99
== END 2023-04-29 15:29 | disposition home or self-care (01) ==
PROVIDERS: Emergency Provider Physician Assistant; PCP Psychiatry & Neurology Psychiatry
DX: F10.139 Alcohol abuse with withdrawal, unspecified (principal)
CPT/HCPCS: 80053; 85025; 96374; 99284; J2060; J7030

== ENCOUNTER 2023-05-02 21:48 | Inpatient (IN) | payer OTHER, MEDICAID, SELFPAY ==
--- NOTE | 2023-05-02 21:52 | ECG_ITS ---
[facility] Test Date: 2023-05-02 Pat Name: Hector Hunter Department: Room: Gender: Male Operating Engineer: : 1975 Requested By: Augie Londono Order Number: [id number] Jeremy MD: Raleigh Mari M.D. Measurements Intervals Stacy Rate: 89 P: 38 HI: 185 QRS: 26 QRSD: 112 T: 62 QT: 351 QTc: 429 Interpretive Statements SINUS RHYTHM MODERATE INTRAVENTRICULAR CONDUCTION DELAY [110+ ms QRS DURATION] NONSPECIFIC T-WAVE ABNORMALITY Compared to ECG 04/22/2023 14:27:01 Intraventricular conduction delay now present T-wave abnormality now present Myocardial infarct finding no longer present Electronically Signed On 05-03-2023 14:42:07 CDT by Raleigh Mari M.D. [id number]
--- NOTE | 2023-05-02 21:56 | W.ED.OVERDOS ---
Documented by User: Augie Londono DO 05/02/23 22:02 HPI - Overdose General: Chief Complaint: Overdose Stated Complaint: OD Time Seen by Provider: 05/02/23 21:49 History of Present Illness: Is aPresents to the ER by EMS with complaints of overdose known alcoholic and likes to drink a lot of vodka. Tonight he did this and took a large amount of Suboxone strips with a number continuously changing but possibly 7 or more. Patient says he did not take anything else and was not actively trying to kill himself. Review of Systems General: Reports: 10 or more systems reviewed and unremarkable except in HPI and below PFSH ED PFSH: Medical History Depressive disorder Polysubstance abuse Social History Smoking and tobacco status: current every day smoker Alcohol intake: current Alcohol intake frequency: 3 or more drinks per day Alcohol type: hard liquor Desire information about alcohol rehabilitation?: Yes Counseling given: Yes Physical Exam Const: COMMON NORMALS: no acute distress, average body habitus, patient oriented x3, no limitations, healthy appearing, alert and well nourished HENMT: COMMON NORMALS: normocephalic, atraumatic, hearing grossly normal bilaterally, external ears normal, Normal external nose present and moist oral mucous membranes HEAD & SCALP: normocephalic and atraumatic NOSE: Normal external nose present EXTERNAL EAR: Yes external ears normal Eye: COMMON NORMALS: Equal, round and reactive pupils present, EOMs intact bilaterally, conjunctivae normal and no scleral icterus CONJUNCTIVA: Yes conjunctivae normal PUPIL: Yes Equal, round and reactive pupils present Neck/C-Spine: COMMON NORMALS: full ROM, no lymphadenopathy, supple, no meningeal signs, no JVD and Thyroid normal THYROID: Thyroid normal Chest: COMMONS NORMALS: normal inspection of the chest and normal palpation of entire chest wall Resp: COMMON NORMALS: normal respiratory effort, No retractions, No use of accessory muscles and clear to auscultation bilaterally AUSCULTATION: clear to auscultation bilaterally Cardio: COMMON NORMALS: no JVD, regular rate, regular rhythm, S1 normal heart sound present, S2 normal heart sound present, No gallops present (Cardio), No clicks present (Cardio), No murmurs present (Cardio) and No rub (Cardio) RATE: regular rate RHYTHM: regular rhythm HEART SOUNDS: S1 normal heart sound present and S2 normal heart sound present GI: COMMON NORMALS: Normal to inspection, nondistended, normoactive bowel sounds present, Soft to palpation, non-tender, No hepatosplenomegaly present and no masses PALPATION: Yes Soft to palpation and Yes No hepatosplenomegaly present : COMMON NORMALS: Yes no CVA tenderness BLADDER/KIDNEY EXAM: Yes no CVA tenderness Back/Pelvis: COMMON NORMALS: no CVA tenderness Neuro: COMMON NORMALS: patient oriented x3 SENSORIUM/ORIENTATION: Yes alert MENINGEAL SIGNS: Yes no meningeal signs Psych: OTHER: Appears intoxicated Course Vital Signs: Vital signs: Vital Signs Temperature 98.3 F 05/02/23 22:05 Pulse Rate 81 05/03/23 04:05 Respiratory Rate 15 05/03/23 03:40 Blood Pressure 144/103 05/03/23 04:15 Pulse Oximetry 93 05/03/23 04:21 Oxygen Delivery Me thod Room Air 05/03/23 04:39 Oxygen Flow Rate 2 05/03/23 01:30 MDM - Overdose Differential Diagnosis Likely poisoning by opiate or related narcotic and drug overdose; Unlikely cocaine intoxication, suicide attempt by multiple drug overdose, acetaminophen overdose or accidental drug ingestion Medical Records I reviewed the patient's medical records. Lab Data I reviewed the patient's lab results. 05/02/23 21:35 05/02/23 21:35 Laboratory Results WBC 6.08 10^3/uL (3.29-11.43) 05/02/23 21:35 RBC 3.73 10^6/uL (3.85-5.65) L 05/02/23 21:35 Hgb 11.20 g/dL (11.27-16.99) L 05/02/23 21:35 Hct 34.1 % (37-53) L 05/02/23 21:35 MCV 91.4 fl (82-101) 05/02/23 21:35 MCH 30.0 pg (27-33) 05/02/23 21:35 MCHC 32.8 g/dL (30-55) 05/02/23 21:35 RDW 14.4 % (12.1-15.1) 05/02/23 21:35 Plt Count 280 10^3/cmm (157-399) 05/02/23 21:35 MPV 9.7 fL (7.4-10.4) 05/02/23 21:35 Neut % (Auto) 58.8 % 05/02/23 21:35 Lymph % (Auto) 17.9 % 05/02/23 21:35 Cascade % (Auto) 17.3 % 05/02/23 21:35 Eos % (Auto) 5.1 % 05/02/23 21:35 Baso % (Auto) 0.7 % 05/02/23 21:35 Neut # (Auto) 3.58 10^3/uL (1.8-7.7) 05/02/23 21:35 Lymph # (Auto) 1.1 10^3/uL (0.8-4.8) 05/02/23 21:35 Cascade # (Auto) 1.1 10^3/uL (0.2-0.9) H 05/02/23 21:35 Eos # (Auto) 0.3 10^3/uL (0.0-0.8) 05/02/23 21:35 Baso # (Auto) 0.0 10^3/uL (0.0-0.1) 05/02/23 21:35 Nucleated RBC % (auto) 0 % 05/02/23 21:35 Nucleated RBCs # 0.0 /100WBC 05/02/23 21:35 Sodium 136 mmol/L (136-145) 05/02/23 21:35 Potassium 3.9 mmol/L (3.5-5.1) 05/02/23 21:35 Chloride 101 mmol/L (98-107) 05/02/23 21:35 Carbon Dioxide 25 mmol/L (22-29) 05/02/23 21:35 Anion Gap 13.9 (5-19) 05/02/23 21:35 BUN 34 mg/dL (6-20) H 05/02/23 21:35 Creatinine 1.3 mg/dL (0.7-1.2) H 05/02/23 21:35 GFR Calculation 58.9 mL/min (90-130) L 05/02/23 21:35 Glucose 101 mg/dL (65-115) 05/02/23 21:35 Estimat Average Glucose 108 05/02/23 21:35 Hemoglobin A1c 5.4 % (4.0-6.0) 05/02/23 21:35 Calculated Osmolality 290 mOsm/kg (285-295) 05/02/23 21:35 Calcium 9.4 mg/dL (8.5-10.5) 05/02/23 21:35 Total Bilirubin 0.3 mg/dL (0.15-1.2) 05/02/23 21:35 AST 34 U/L (0-40) 05/02/23 21:35 ALT 17 U/L (0-41) 05/02/23 21:35 Alkaline Phosphatase 102 U/L (40-130) 05/02/23 21:35 NT-Pro-B Natriuret Pep 36 pg/mL (0-125) 05/02/23 21:35 Total Protein 7.2 g/dL (6.6-8.7) 05/02/23 21:35 Albumin 4.3 g/dL (3.5-5.2) 05/02/23 21:35 Globulin 2.9 g/dL (1.3-4.6) 05/02/23 21:35 Vitamin B12 818 pg/mL (232-1245) 05/02/23 21:35 Folate 17.7 ng/mL (4.5-32.2) 05/02/23 21:35 Procalcitonin 0.09 ng/mL (0-0.5) 05/02/23 21:35 TSH 1.68 uIU/mL (0.27-4.20) 05/02/23 21:35 Salicylates < 0.3 mg/dL (3-10) L 05/02/23 21:35 Acetaminophen < 5.0 ug/mL (10-30) L 05/02/23 21:35 Ethyl Alcohol 135 mg/dL (0-10) H 05/02/23 21:35 EKG Data EKG 1: I personally reviewed and interpreted this EKG as follows: EKG interpretation date: 05/02/23 EKG interpretation time: 21:58 Prior EKG tracings: available for review Interpretation: EKG shows ventricular rate 89 beats a minute, NE interval 185, QRS duration 112, QTc of 398, sinus rhythm, moderate intraventricular conduction delay, nonspecific T wave abnormality Discharge Plan Discharge Patient Disposition: Admitted As Inpatient Admit Provider: Roderick Pedro Clinical Impression: Poisoning by opiate or related narcotic, Alcohol use disorder, Drug overdose Condition: Stable Coding Level of Care Code ED Securities Counselor for Irisg Fwd Documented by User: Torey Kumar DO 05/03/23 05:10 HPI - Overdose General: Chief Complaint: Overdose Stated Complaint: OD Time Seen by Provider: 05/02/23 21:49 PFSH ED PFSH: Medical History Depressive disorder Polysubstance abuse Social History Smoking and tobacco status: current every day smoker Alcohol intake: current Alcohol intake frequency: 3 or more drinks per day Alcohol type: hard liquor Desire information about alcohol rehabilitation?: Yes Counseling given: Yes Course Vital Signs: Vital signs: Vital Signs Temperature 98.3 F 05/02/23 22:05 Pulse Rate 81 05/03/23 04:05 Respiratory Rate 15 05/03/23 03:40 Blood Pressure 144/103 05/03/23 04:15 Pulse Oximetry 93 05/03/23 04:21 Oxygen Delivery Me thod Room Air 05/03/23 04:39 Oxygen Flow Rate 2 05/03/23 01:30 MDM - Overdose Medical Decision Making 47-year-old patient received in checkout from Dr. Londono. This patient is intoxicated, and took 7 strips of Suboxone evidently. This obviously displays poor judgment. Intentional overdose of narcotics is likely. Because of this, nancy has been written for 96-hour hold. He will be placed in the ICU for observation, as he has been hypoxic at times in the ER. Laboratory kebede, he is quite stable. Ethyl alcohol is 135. He will need [facility] protocol for alcohol withdrawal. Hospitalist is aware, and will admit the patient to the ICU. Lab Data 05/02/23 21:35 05/02/23 21:35 Laboratory Results WBC 6.08 10^3/uL (3.29-11.43) 05/02/23 21: RBC 3.73 10^6/uL (3.85-5.65) L 05/02/23 21: Hgb 11.20 g/dL (11.27-16.99) L 05/02/23 21: Hct 34.1 % (37-53) L 05/02/23 21: MCV 91.4 fl (82-101) 05/02/23 21: MCH 30.0 pg (27-33) 05/02/23 21: MCHC 32.8 g/dL (30-55) 05/02/23: RDW 14.4 % (12.1-15.1) 05/02/23 21: Plt Count 280 10^3/cmm (157-399) 05/02/23: MPV 9.7 fL (7.4-10.4) 05/02/23 21: Neut % (Auto) 58.8 % 05/02/23 21: Lymph % (Auto) 17.9 % 05/02/23 21: Cascade % (Auto) 17.3 % 05/02/23 21: Eos % (Auto) 5.1 % 05/02/23 21: Baso % (Auto) 0.7 % 05/02/23: Neut # (Auto) 3.58 10^3/uL (1.8-7.7) 05/02/23: Lymph # (Auto) 1.1 10^3/uL (0.8-4.8) 05/02/23 21: Cascade # (Auto) 1.1 10^3/uL (0.2-0.9) H 05/02/23: Eos # (Auto) 0.3 10^3/uL (0.0-0.8) 05/02/23 21: Baso # (Auto) 0.0 10^3/uL (0.0-0.1) 05/02/23 21: Nucleated RBC % (auto) 0 % 08/25/23 21:35 Nucleated RBCs # 0.0 /100WBC 05/02/23 21:35 Sodium 136 mmol/L (136-145) 05/02/23 21:35 Potassium 3.9 mmol/L (3.5-5.1) 05/02/23 21:35 Chloride 101 mmol/L (98-107) 05/02/23 21:35 Carbon Dioxide 25 mmol/L (22-29) 05/02/23 21:35 Anion Gap 13.9 (5-19) 05/02/23 21:35 BUN 34 mg/dL (6-20) H 05/02/23 21:35 Creatinine 1.3 mg/dL (0.7-1.2) H 05/02/23 21:35 GFR Calculation 58.9 mL/min (90-130) L 05/02/23 21:35 Glucose 101 mg/dL (65-115) 05/02/23 21:35 Estimat Average Glucose 108 05/02/23 21:35 Hemoglobin A1c 5.4 % (4.0-6.0) 05/02/23 21:35 Calculated Osmolality 290 mOsm/kg (285-295) 05/02/23 21:35 Calcium 9.4 mg/dL (8.5-10.5) 05/02/23 21:35 Total Bilirubin 0.3 mg/dL (0.15-1.2) 05/02/23 21:35 AST 34 U/L (0-40) 05/02/23 21:35 ALT 17 U/L (0-41) 05/02/23 21:35 Alkaline Phosphatase 102 U/L (40-130) 05/02/23 21:35 NT-Pro-B Natriuret Pep 36 pg/mL (0-125) 05/02/23 21:35 Total Protein 7.2 g/dL (6.6-8.7) 05/02/23 21:35 Albumin 4.3 g/dL (3.5-5.2) 05/02/23 21:35 Globulin 2.9 g/dL (1.3-4.6) 05/02/23 21:35 Vitamin B12 818 pg/mL (232-1245) 05/02/23 21:35 Folate 17.7 ng/mL (4.5-32.2) 05/02/23 21:35 Procalcitonin 0.09 ng/mL (0-0.5) 05/02/23 21:35 TSH 1.68 uIU/mL (0.27-4.20) 05/02/23 21:35 Salicylates < 0.3 mg/dL (3-10) L 05/02/23 21:35 Acetaminophen < 5.0 ug/mL (10-30) L 05/02/23 21:35 Ethyl Alcohol 135 mg/dL (0-10) H 05/02/23 21:35 Discharge Plan Discharge Patient Disposition: Admitted As Inpatient Admit Provider: Roderick Pedro Clinical Impression: Poisoning by opiate or related narcotic, Alcohol use disorder, Drug overdose Condition: Stable Coding Level of Care Code ED Securities Counselor for Abisai Fermin
[2023-05-02] MEDS: ondansetron 2 mg/ML SDV 2 mL 4 MG IVP (22:01)
[2023-05-02] MEDS: sodium chloride 0.9% 1,000 ML 999 ML IV (22:01)
[2023-05-02 22:05] VITALS: BP 114/82; PULSE 87; RESP 12; TEMP 36.8; O2SAT 96
[2023-05-02 22:08] LABS: Basophils % 0.7 %; Eosinophils # 0.3 10^3/uL (0.0-0.8); Eosinophils % 5.1 %; Hematocrit 34.1 % (37-53); Lymphocytes # 1.1 10^3/uL (0.8-4.8); Lymphocytes % 17.9 %; Mean Corpuscular HGB Conc 32.8 g/dL (30-55); Mean Corpuscular Volume 91.4 fl (82-101); Mean Platelet Volume 9.7 fL (7.4-10.4); Monocytes # 1.1 10^3/uL (0.2-0.9); Monocytes % 17.3 %; Neutrophils # 3.58 10^3/uL (1.8-7.7); Neutrophils % 58.8 %; Nucleated Red Blood Cells % 0 %; Platelet Count 280 10^3/cmm (157-399); Red Blood Count 3.73 10^6/uL (3.85-5.65); Red Cell Distribution Width 14.4 % (12.1-15.1); White Blood Count 6.08 10^3/uL (3.29-11.43)
[2023-05-02 22:36] VITALS: BP 118/88; PULSE 83; RESP 15; O2SAT 99
[2023-05-02 22:40] LABS: Alanine Aminotransferase 17 U/L (0-41); Albumin Level 4.3 g/dL (3.5-5.2); Alcohol Level 135 mg/dL (0-10); Alkaline Phosphatase 102 U/L (40-130); Anion Gap 13.9 (5-19); Aspartate Amino Transferase 34 U/L (0-40); Blood Urea Nitrogen 34 mg/dL (6-20); Calcium 9.4 mg/dL (8.5-10.5); Carbon Dioxide 25 mmol/L (22-29); Chloride 101 mmol/L (98-107); Globulin 2.9 g/dL (1.3-4.6); Glomerular Filtration Rate 58.9 mL/min (90-130); Glucose 101 mg/dL (65-115); Osmolality Calculated 290 mOsm/kg (285-295); Potassium 3.9 mmol/L (3.5-5.1); Sodium 136 mmol/L (136-145); Total Bilirubin 0.3 mg/dL (0.15-1.2); Total Protein 7.2 g/dL (6.6-8.7)
[2023-05-02 22:42] LABS: Acetaminophen < 5.0 ug/mL (10-30); Creatinine Clr Calc Pharmacy 69.8017; Salicylate < 0.3 mg/dL (3-10)
[2023-05-02 23:06] VITALS: BP 134/84; PULSE 82; RESP 17; O2SAT 99
[2023-05-02 23:30] VITALS: PULSE 80; RESP 15; O2SAT 99
[2023-05-03] VITALS (31 sets, daily range): BP systolic 74–168; BP diastolic 50–103; PULSE 50–155; RESP 10–19; TEMP 37; O2SAT 77–97
--- NOTE | 2023-05-03 01:06 | PC.NURSE ---
poison control contacted re: unknown amount of suboxone sl sheets ingested today along with vodka. poison control faxing recommendations
--- NOTE | 2023-05-03 02:50 | PC.NURSE ---
96 Hour Hold Patient Rights have been read to the patient & a copy of the same has been given to him. Blood Bank Coordinator Edgar was present at bedside at the time of reading.
[2023-05-03] MEDS: LORazepam 2 mg/mL INJ 1 mL IVP ×2 (03:02→19:44)
[2023-05-03] MEDS: LORazepam 2 mg/mL INJ 1 mL 1 MG IVP ×2 (03:54→17:54)
--- NOTE | 2023-05-03 04:11 | PM.HP ---
Providers/Chief Complaint Admitting Physician: Roderick Pedro MD Primary Care Provider: Mark Wong DO Chief Complaint: OD History of Present Illness Hector Hunter is a 47 year old male with a past medical history of alcohol abuse, history of alcohol withdrawals, history of polysubstance abuse, who presents to [facility] due to service for alcohol intoxication, and possible overdose on Suboxone. Currently patient is alert to person, not to place, time he thinks he is in the neuropsychiatric unit. Currently he smells of alcohol, intoxicated, slurring his words, frequently dozes off, some of his answers and speech at times is not clear. I asked him why he is here in the hospital, he does not know why, he tells me his last drink was vodka this morning, he is not exactly sure how much he consumed or what time. I asked him about his overdose on Suboxone, he tells me that he is not sure how many strips he took, but he told ER providers he approximately 7, denies any other drug use, denies IV drug use, is on Librium, gabapentin, hydroxyzine, Remeron, Ambien at home I asked him if he took any of these medications and more medications than prescribed, however he denies. Denies headache, new blurry vision, no nausea, vomiting, abdominal pain. Denies any fevers, denies any chills. She denies any shortness of breath. I asked him if he had any suicidal ideation or homicidal ideation, he was not able to provide me any answer, he kept Quiet, I asked him if he had been feeling down depressed or sad, he did not provide an answer Review of Systems Const: Denies: fever(s) or chills Eyes: Denies: change in vision Card: Denies: chest pain Resp: Denies: dyspnea GI: Denies: abdominal pain : Denies: flank pain Musc: Denies: neck pain or back pain Skin/Breast: Denies: rash Neuro: Denies: headache(s), numbness in extremities or weakness in extremities Medications/Allergies Home Medications Medication Instructions Recorded Confirmed Last Taken Type gabapentin 100 mg capsule 100 mg PO TID 04/22/23 04/29/23 Unknown History hydroxyzine pamoate 50 mg capsule 50 mg PO QID PRN Anxiety 04/22/23 04/29/23 Unknown History naltrexone 50 mg tablet 50 mg PO DAILY 04/22/23 04/29/23 Unknown History ondansetron 4 mg disintegrating 4 mg PO Q6H PRN Nausea And Vomiting 04/22/23 04/29/23 Unknown History tablet pantoprazole 40 mg tablet,delayed 40 mg PO BID 04/22/23 04/29/23 Unknown History release vitamin with calcium 1 tab PO DAILY 04/22/23 04/29/23 Unknown History no.72-iron 27 mg-folic acid 1 mg tablet ( Vitamins Plus Low Iron) zolpidem 5 mg tablet 5 mg PO BEDTIME PRN Sleep 04/22/23 04/29/23 Unknown History chlordiazepoxide HCl 25 mg capsule See Rx Instructions .Route 04/29/23 Unknown Rx .COMPLEX #27 caps mirtazapine 15 mg tablet 15 mg PO BEDTIME #14 tabs 04/29/23 Unknown Rx Allergies Allergy/AdvReac Type Severity Reaction Status Date / Time amoxicillin Allergy ALGY-Rash Verified 05/02/23 22:05 ampicillin Allergy Unknown Verified 05/02/23 22:05 PFSH Acute PFSH: Medical History Depressive disorder Polysubstance abuse Social History Smoking and tobacco status: current every day smoker Alcohol intake: current Alcohol intake frequency: 3 or more drinks per day Alcohol type: hard liquor Desire information about alcohol rehabilitation?: Yes Counseling given: Yes Vitals/I&O/Wt Last Vital Signs Temp 98.3 F 05/02/23 22:05 Pulse 81 05/03/23 03:16 Resp 16 05/03/23 03:16 BP 111/83 05/03/23 03:16 Pulse Ox 93 05/03/23 03:16 O2 Del Method Room Air 05/03/23 03:30 O2 Flow Rate 2 05/03/23 01:30 05/02/23 05/02/23 05/03/23 14:59 22:59 06:59 Intake Total 1000 / 1000 Balance 1000 / 1000 Weight last 48 hrs Weight 68.039 kg Physical Exam Const: COMMON NORMALS: no acute distress ORIENTATION/CONSCIOUSNESS: Yes awake, Yes oriented to person and Yes confused; not oriented to place and not oriented to time OTHER: Is intoxicated, slurring of his words, frequently dozing off, smells of alcohol HENMT: COMMON NORMALS: normocephalic and Normal external nose present HEAD & SCALP: normocephalic FACE & SINUS: normal facial exam MOUTH: Normal oral and palatal mucosa present Eye: COMMON NORMALS: Equal, round and reactive pupils present, conjunctivae normal and no scleral icterus CONJUNCTIVA: Yes conjunctivae normal PUPIL: Yes Equal, round and reactive pupils present Neck/C-Spine: COMMON NORMALS: full ROM, no lymphadenopathy, no meningeal signs and No carotid bruits THYROID: Thyroid normal Lymph: LYMPHATIC: no lymphadenopathy noted Chest: COMMONS NORMALS: normal inspection of the chest Resp: COMMON NORMALS: normal respiratory effort, No retractions, No use of accessory muscles and clear to auscultation bilaterally AUSCULTATION: clear to auscultation bilaterally Cardio: COMMON NORMALS: regular rate, regular rhythm, S1 normal heart sound present, S2 normal heart sound present, No murmurs present (Cardio) and Peripheral pulses 2+ throughout RATE: regular rate RHYTHM: regular rhythm HEART SOUNDS: S1 normal heart sound present and S2 normal heart sound present PERIPHERAL PULSES: Peripheral pulses 2+ throughout GI: COMMON NORMALS: Normal to inspection, nondistended, normoactive bowel sounds present, Soft to palpation and non-tender : BLADDER/KIDNEY EXAM: Yes no CVA tenderness Back/Pelvis: COMMON NORMALS: no CVA tenderness Extremity: COMMON NORMALS: no pedal edema Neuro: COMMON NORMALS: CN's II-XII intact bilaterally, moves all extremities and no focal motor deficits MENINGEAL SIGNS: Yes no meningeal signs OTHER: Neurologic testing is difficult given his alcohol intoxication, no resting tremor, good strength in upper extremities, and lower extremities Psych: OTHER: Very easily agitated Skin: COMMON NORMALS: turgor normal and no jaundice GENERAL SKIN EXAM: turgor normal Data 05/02/23 21:35 05/02/23 21:35 A&P Assessment and plan (1) Chronic alcohol abuse: (2) Alcohol withdrawal: Qualifiers: Complication of substance-induced condition: uncomplicated Qualified Code(s): F10.930 - Alcohol use, unspecified with withdrawal, uncomplicated (3) Poisoning by opiate or related narcotic: (4) Drug overdose: (5) Depressive disorder: (6) Polysubstance abuse: Plan Alcohol withdrawal -CIWA protocol -Thiamine -IV fluids -Scheduled Librium 50 every 6 hours -precedex drip Suboxone overdose -Monitor in ICU MATTHEW -IV fluids Reported suicide ideation -On a 96-hour hold -Psychiatry consulted Attestations Medical Necessity Statement*: Patient requires hospitalization for concerns for alcohol withdrawal, Suboxone overdose, suicidal ideation, inpatient, greater than 2 midnights Diagnoses Chronic alcohol abuse F10.10 Alcohol withdrawal F10.930 Complication of substance-induced condition: uncomplicated Poisoning by opiate or related narcotic Drug overdose T50.901A Depressive disorder F32.9 Polysubstance abuse F19.10
[2023-05-03] MEDS: chlordiazePOXIDE 25 mg Capsule 50 MG PO ×4 (04:12→21:50)
[2023-05-03] MEDS: haloperidol inj 5 mg/mL INJ 1 mL 1 MG IM ×2 (04:17→21:52)
[2023-05-03] MEDS: dexmedetomidine 400 MCG in sodium chloride 0.9% (100 ml) 100 ML IV (04:40)
[2023-05-03 04:46] LABS: Estmated Average Glucose 108; Hemoglobin A1C 5.4 % (4.0-6.0)
[2023-05-03] MEDS: dextrose 5%-sod chloride 0.9% 1,000 ML 100 ML IV ×2 (04:59→19:44)
[2023-05-03] MEDS: pantoprazole 40 mg SDV IVP (04:59)
[2023-05-03] MEDS: enoxaparin 40 mg/0.4 mL Syringe SUBCUT (04:59)
[2023-05-03 05:03] LABS: NT Pro B Type Natriuretic Pept 36 pg/mL (0-125); Procalcitonin 0.09 ng/mL (0-0.5); Thyroid Stimulating Hormone 1.68 uIU/mL (0.27-4.20); Vitamin B12 818 pg/mL (232-1245)
[2023-05-03 05:07] LABS: Folate Level 17.7 ng/mL (4.5-32.2)
[2023-05-03 05:14] LABS: Chol HDL Ratio 3.65 mg/dL (1.0-5.00); Cholesterol 226 mg/dL (0-200); HDL Cholesterol 62 mg/dL (60-100); LDL Cholesterol Calculated 133 mg/dL (50-129); LDL HDL Ratio 2.15 RATIO (0.00-3.22); Lipase 24 U/L (13-60); Magnesium 1.9 mg/dL (1.7-2.3); Triglycerides 154 mg/dL (0-150)
[2023-05-03 06:20] LABS: INR 0.97 (0.8-1.2)
[2023-05-03 06:25] LABS: Lactic Sepsis W/Reflex 1.2 mmol/L (0.5-2.2)
[2023-05-03 06:26] LABS: Ammonia 30 umol/L (16-60)
--- NOTE | 2023-05-03 08:17 | PC.PHAR ---
PT UNABLE TO VERIFY ANY MEDICATIONS. EXTERNAL MEDS AND DISCHARGE MEDS VERIFIED WITH PHARMACIES.
--- NOTE | 2023-05-03 09:20 | PM.PN ---
Subjective Subjective: Patient is asleep, appears comfortable. No events overnight. Vitals/I&O/Wt Last Vital Signs Temp 98.3 F 05/02/23 22:05 Pulse 59 L 05/03/23 08:00 Resp 14 05/03/23 08:00 BP 102/52 05/03/23 08:00 Pulse Ox 93 05/03/23 08:00 O2 Del Method Room Air 05/03/23 04:39 O2 Flow Rate 2 05/03/23 01:30 05/02/23 05/03/23 05/03/23 22:59 06:59 14:59 Intake Total 1000 / 1000 Balance 1000 / 1000 Weight last 48 hrs Weight 150 lb Physical Exam Narrative: General: Cooperative patient in no apparent distress. Well developed. HEENT: Normocephalic, Atraumatic. External ears normal. Nasal passages patent without drainage. MMM. Heart: RRR. Resp: LCTA. No respiratory distress, no use of accessory muscles. Abd: Soft, non-tender. Non-distended. Extremities: No edema. Skin: No rash or lesions on exposed areas. Data 05/02/23 21:35 05/02/23 21:35 A&P Assessment and plan (1) Chronic alcohol abuse: (2) Alcohol withdrawal: Qualifiers: Complication of substance-induced condition: uncomplicated Qualified Code(s): F10.930 - Alcohol use, unspecified with withdrawal, uncomplicated (3) Poisoning by opiate or related narcotic: (4) Drug overdose: (5) Depressive disorder: (6) Polysubstance abuse: Plan 47-year-old male admitted for acute alcohol withdrawal, and suicidal ideation. Continue close ICU monitoring. [facility] protocol Continue thiamine supplementation. Thiamine Scheduled Librium 50 mg q6 hours and Precedex drip for now. He is currently on a 96-hour hold for suicidal ideation. He does have a 24-hour sitter. We will continue to monitor for Suboxone overdose. Recheck a.m. labs. MATTHEW likely related to dehydration. Continue IV fluids. Psychiatry is consulted and will see the patient once he is stable. Code Status: Full IVF: D5 NS at 100 DVT PPx: SCDs GI PPx: Protonix ABx: None Diet: Clear liquid Discharge plan: TBD. Attestations Medical Necessity Statement*: Patient requires hospitalization for concerns for alcohol withdrawal, Suboxone overdose, suicidal ideation, inpatient, greater than 2 midnights Coding Level of Care Code Critical Care >/= 30 minutes Critical care time (in minutes): 36 The high probability of a clinically significant, sudden or life threatening deterioration, as referenced in this documentation, required my full and direct attention, intervention and personal management. The critical care time shown is in addition to time spent performing any reported separately billable procedures and includes the following: [x] Data and vital sign review and interpretation [x] Patient assessment, examination and intervention [x] Medication orders and management [x] Patient/Family updates as able [x] Care Coordination and Documentation. Diagnoses Chronic alcohol abuse F10.10 Alcohol withdrawal F10.930 Complication of substance-induced condition: uncomplicated Poisoning by opiate or related narcotic Drug overdose T50.901A Depressive disorder F32.9 Polysubstance abuse F19.10
[2023-05-04] VITALS (17 sets, daily range): BP systolic 81–131; BP diastolic 52–89; PULSE 53–75; RESP 12–26; TEMP 36.4–37.1; O2SAT 84–97
[2023-05-04] MEDS: enoxaparin 40 mg/0.4 mL Syringe SUBCUT (03:29)
[2023-05-04] MEDS: chlordiazePOXIDE 25 mg Capsule 50 MG PO ×4 (03:29→20:10)
[2023-05-04] MEDS: pantoprazole 40 mg SDV IVP (03:29)
[2023-05-04] MEDS: dexmedetomidine 400 MCG in sodium chloride 0.9% (100 ml) 100 ML 7.08 MCG IV (03:30)
--- NOTE | 2023-05-04 05:03 | PC.NURSE ---
Resting comfortably at present time, precedex infusing. Was very agitated and anxious at start of shift. Did have some hallucinations of seeing purple men in room at one point, no hallucinations currently. Patient attempted to drink the urine from his urinal after voiding twice. V/S remain stable.
[2023-05-04] MEDS: dextrose 5%-sod chloride 0.9% 1,000 ML 100 ML IV (07:41)
--- NOTE | 2023-05-04 07:42 | PM.PN ---
Subjective Subjective: No events overnight. Tolerating clear liquid diet well. Still on Precedex, but weaning off. Vitals/I&O/Wt Last Vital Signs Temp 98.3 F 05/04/23 04:00 Pulse 62 05/04/23 06:00 Resp 12 05/04/23 06:00 BP 101/72 05/04/23 06:00 Pulse Ox 95 05/04/23 06:00 O2 Del Method Nasal Cannula 05/04/23 06:00 O2 Flow Rate 2 05/03/23 01:30 05/03/23 05/04/23 05/04/23 22:59 06:59 14:59 Intake Total 71.98 / 1071.98 646.18 / 1718.16 Balance 71.98 / 1071.98 646.18 / 1718.16 Weight last 48 hrs Weight 150 lb Physical Exam Narrative: General: Cooperative patient in no apparent distress. Well developed. HEENT: Normocephalic, Atraumatic. External ears normal. Nasal passages patent without drainage. MMM. Heart: RRR. Resp: LCTA. No respiratory distress, no use of accessory muscles. Abd: Soft, non-tender. Non-distended. Extremities: No edema. Skin: No rash or lesions on exposed areas. Data 05/02/23 21:35 05/02/23 21:35 A&P Assessment and plan (1) Chronic alcohol abuse: (2) Alcohol withdrawal: Qualifiers: Complication of substance-induced condition: uncomplicated Qualified Code(s): F10.930 - Alcohol use, unspecified with withdrawal, uncomplicated (3) Poisoning by opiate or related narcotic: (4) Drug overdose: (5) Depressive disorder: (6) Polysubstance abuse: Plan 47-year-old male admitted for acute alcohol withdrawal, and suicidal ideation. Continue close ICU monitoring. CIWA protocol Will titrate off precedex today. Continue thiamine supplementation. Continue Librium for now. He is currently on a 96-hour hold for suicidal ideation. He does have a 24-hour sitter. Recheck labs this morning. Psychiatry is consulted and will have them evaluate the patient this morning. Code Status: Full IVF: D5NS @ 50. DVT PPx: SCDs GI PPx: Protonix ABx: None Diet: Clear liquid Discharge plan: TBD. Attestations Medical Necessity Statement*: Patient requires hospitalization for concerns for alcohol withdrawal, Suboxone overdose, suicidal ideation, inpatient, greater than 2 midnights Coding Level of Care Code Acute Code for Chg Fwd Moderate MDM includes number and complexity of problems actively addressed during encounter, amount and/or complexity of data reviewed/ordered and described risk of complication, morbidity or mortality of management as documented Diagnoses Chronic alcohol abuse F10.10 Alcohol withdrawal F10.930 Complication of substance-induced condition: uncomplicated Poisoning by opiate or related narcotic Drug overdose T50.901A Depressive disorder F32.9 Polysubstance abuse F19.10
[2023-05-04] MEDS: acetaminophen 325 mg Tablet 650 MG PO (08:03)
[2023-05-04] MEDS: folic acid 1 mg Tablet PO (08:04)
[2023-05-04] MEDS: thiamine 100 mg Tablet PO (08:04)
[2023-05-04] MEDS: multivitamin therapeutic Tablet 1 TAB PO (08:04)
[2023-05-04 09:10] LABS: Basophils % 0.5 %; Eosinophils # 0.2 10^3/uL (0.0-0.8); Eosinophils % 3.5 %; Lymphocytes # 0.8 10^3/uL (0.8-4.8); Lymphocytes % 12.6 %; Mean Corpuscular HGB Conc 31.1 g/dL (30-55); Mean Corpuscular Hemoglobin 30.3 pg (27-33); Mean Corpuscular Volume 97.3 fl (82-101); Mean Platelet Volume 9.6 fL (7.4-10.4); Monocytes % 14.4 %; Neutrophils # 4.52 10^3/uL (1.8-7.7); Neutrophils % 68.7 %; Nucleated Red Blood Cells % 0 %; Platelet Count 279 10^3/cmm (157-399); Red Cell Distribution Width 14.8 % (12.1-15.1); White Blood Count 6.58 10^3/uL (3.29-11.43)
[2023-05-04 09:32] LABS: Alanine Aminotransferase 14 U/L (0-41); Albumin Level 3.6 g/dL (3.5-5.2); Alkaline Phosphatase 83 U/L (40-130); Anion Gap 12.9 (5-19); Aspartate Amino Transferase 32 U/L (0-40); Blood Urea Nitrogen 18 mg/dL (6-20); Calcium 8.4 mg/dL (8.5-10.5); Carbon Dioxide 23 mmol/L (22-29); Chloride 103 mmol/L (98-107); Globulin 2.9 g/dL (1.3-4.6); Glomerular Filtration Rate 90.1 mL/min (90-130); Glucose 88 mg/dL (65-115); Osmolality Calculated 281 mOsm/kg (285-295); Potassium 3.9 mmol/L (3.5-5.1); Sodium 135 mmol/L (136-145); Total Bilirubin 0.5 mg/dL (0.15-1.2); Total Protein 6.5 g/dL (6.6-8.7)
[2023-05-04 13:51] LABS: Add Urine Microscopic? NO; Charge for UA Resulting for Rev
[2023-05-04 14:13] LABS: Bilirubin Urine Neg (Negative); Blood Urine Neg (Negative); Glucose Urine UA Norm (Normal); Ketones Urine Negative (Negative); Leukocyte Esterase Urine Negative (Negative); Nitrate Urine Negative (Negative); Protein Urine Neg (Negative); Specific Gravity, Urine 1.015 (1.005-1.030); Urine Appearance Clear (CLEAR); Urine Color Yellow (Yellow); Urobilinogen Urine Norm (Negative); pH Urine 5 (5-7)
[2023-05-04 14:22] LABS: Amphetamines Screen Urine Negative (Negative); Barbiturates Screen Urine Negative (Negative); Benzodiazepines Screen Urine Positive (Negative); Cocaine Screen Urine Negative (Negative); Opiate Screen Urine Negative (Negative); PCP Screen Urine Negative (Negative); THC Screen Urine Positive (Negative)
--- NOTE | 2023-05-04 16:49 | PC.NURSE ---
Report given to Glenny FORBES in NPU. Transferring to 125 bed 1.
[2023-05-04] MEDS: mirtazapine 15 mg Tablet PO (20:09)
[2023-05-04] MEDS: sucralfate 1 gm Tablet PO (20:09)
[2023-05-04] MEDS: pantoprazole DR 40 mg Tablet PO (20:09)
[2023-05-04] MEDS: gabapentin 100 mg Capsule PO (20:11)
--- NOTE | 2023-05-05 05:13 | PC.NURSE ---
Patient denies SI/HI/ AVH.He rates depression 9/10 and anxiety 9/10. Patient interacted appropriately with other patients on the unit and mostly paced the halls prior to going to bed. Patient was meal and medication compliant and was pleasant and cooperative with care.
[2023-05-05] MEDS: chlordiazePOXIDE 25 mg Capsule 50 MG PO ×4 (05:43→19:29)
[2023-05-05 06:00] VITALS: BP 109/68; PULSE 73; RESP 18; O2SAT 96
[2023-05-05] MEDS: gabapentin 100 mg Capsule PO ×3 (08:44→19:29)
[2023-05-05] MEDS: naltrexone hcl 50 mg Tablet PO (08:44)
[2023-05-05] MEDS: sucralfate 1 gm Tablet PO ×4 (08:44→19:28)
[2023-05-05] MEDS: folic acid 1 mg Tablet PO (08:45)
[2023-05-05] MEDS: prenatal vitamin Capsule 1 CAP PO (08:45)
[2023-05-05] MEDS: multivitamin therapeutic Tablet 1 TAB PO (08:45)
[2023-05-05] MEDS: pantoprazole DR 40 mg Tablet PO ×2 (08:45→19:29)
--- NOTE | 2023-05-05 09:16 | PC.NURSE ---
During morning assessment, patient stated that he is not good . Patient states that he is sick in the head and that he is just a fuck up . Patient went on to say that he has problems in his head and that he can't do nothing right. Patient admits to being a little suicidal but denied any specific plan. Patient kept saying that he needs to be back on his ativan, that it hold him together at the seams.
--- NOTE | 2023-05-05 10:18 | PC.NURSE ---
patient came out of room without shirt. patient was told by staff to return to room to put on shirt. Patient was found in the wrong room. In the room, he took off his pants like he was going to shower. We tried to tell patient that there wasn't a shower in his room. Patient slamming doors, yelling about how he was told there was a shower in his room. Patient yelled that he would not take a shower now because we lied to him.
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
[2023-05-05 14:00] VITALS: BP 124/80; PULSE 70; RESP 16; TEMP 36.8; O2SAT 95
[2023-05-05] MEDS: mirtazapine 30 mg Tablet PO (19:29)
[2023-05-05] MEDS: ondansetron 4 MG Tablet PO (19:29)
[2023-05-06] MEDS: chlordiazePOXIDE 25 mg Capsule 50 MG PO ×4 (05:48→20:16)
[2023-05-06 06:00] VITALS: BP 124/80; PULSE 71; RESP 20; O2SAT 93
[2023-05-06] MEDS: prenatal vitamin Capsule 1 CAP PO (09:08)
[2023-05-06] MEDS: pantoprazole DR 40 mg Tablet PO ×2 (09:08→20:16)
[2023-05-06] MEDS: folic acid 1 mg Tablet PO (09:08)
[2023-05-06] MEDS: naltrexone hcl 50 mg Tablet PO (09:08)
[2023-05-06] MEDS: multivitamin therapeutic Tablet 1 TAB PO (09:08)
[2023-05-06] MEDS: sucralfate 1 gm Tablet PO ×4 (09:08→20:15)
[2023-05-06] MEDS: gabapentin 100 mg Capsule PO ×3 (09:08→20:15)
[2023-05-06 14:00] VITALS: BP 127/80; PULSE 64; RESP 16; O2SAT 96
--- NOTE | 2023-05-06 15:47 | W.PM.NPUPNS ---
Subjective NPU Subjective: Patient is a 47-year-old male with PTSD, and alcohol dependence admitted with depressed mood and a significant history of alcohol consumption alcohol-related withdrawal. Patient had reported limited desire to discontinue use of alcohol at this time despite its adverse consequences. He had reported feeling shaky but stated that he was feeling much better today. He had reported only brief moments of about 3 months of having been sober in the 20-year plus history of alcohol use. He appeared minimally engaged in groups. He had reported some mild shaking but stated that the medications had been helpful for his withdrawal symptoms as he had a past history of DTs. Mental Status Exam MSE Comments: This is a well-nourished well-developed white male lying in bed with poor grooming and fair eye contact. No abnormal involuntary motor movements except for mild tremor bilaterally. He was cooperative with exam in moderate distress. Speech was normal in volume and rate. He appeared to be hard of hearing as he appeared to incorrectly answer questions but was polite and redirected. Mood described as better. His affect was restricted in range and and mood incongruent. His thought process was organized. Thought content: He denied any homicidal or suicidal ideation.. Attention and concentration were intact and memory appeared adequate. He is alert and oriented ?3. Insight is feeble and judgment appear poor. Impulse control was poor. Vitals/I&O/Wt Last Vital Signs Temp 98.3 F 05/05/23 14:00 Pulse 64 05/06/23 14:00 Resp 16 05/06/23 14:00 BP 127/80 05/06/23 14:00 Pulse Ox 96 05/06/23 14:00 O2 Del Method Room Air 05/06/23 14:00 O2 Flow Rate 2 05/05/23 08:00 Data NPU 05/04/23 08:21 05/04/23 08:21 A&P Assessment and plan (1) MDD (major depressive disorder), recurrent episode: (2) RUBY (generalized anxiety disorder): (3) PTSD (post-traumatic stress disorder): (4) Alcohol dependence: (5) Opiate abuse, episodic: Plan 47-year-old white male with alcohol dependence and opiate abuse along with significant depression and anxiety admitted after an overdose while continuing to endorse suicidal ideation. He would likely benefit from acute inpatient hospitalization at this time. ?1. Encourage individual, group and milieu therapy. ?2.Recommend sober living treatment at the highest level of care to which the patient is willing to commit. 3.Continue q-15 minute checks for safety.? 4.Will consolidate and reevaluate medications as patient had admited to lack of use of most of his outpatient medications WIll restart remeron with increase to 30mg and restart Gabapentin, continue naltrexone at 50mg daily. 5. Reduce librium to 50mg tid, monitor for significant withdrawal symptoms from alcohol. Involuntary Hold Information 96 Hour Hold: 96 Hour Involuntary Admission: Yes 96 Hour Hold Ending Date: 05/09/23 96 Hour Hold Ending Time: 00:01 Attestations NPU Medical Necessity Statement*: Inpatient hospitalization is medically necessary and the clinically appropriate intervention at this time. We will monitor it and initiate medications while making changes as indicated. His likely length of stay 3-5 days. Coding Level of Care Code Acute Code for g Fwd Diagnoses MDD (major depressive disorder), recurrent episode F33.9 RUBY (generalized anxiety disorder) F41.1 PTSD (post-traumatic stress disorder) F43.10 Alcohol dependence F10.20 Opiate abuse, episodic F11.10
[2023-05-06] MEDS: mirtazapine 30 mg Tablet PO (20:15)
[2023-05-06 22:00] VITALS: BP 116/77; PULSE 63; RESP 16; O2SAT 97
[2023-05-07] MEDS: LORazepam 2 mg/mL INJ 1 mL IM (01:54)
[2023-05-07] MEDS: haloperidol inj 5 mg/mL INJ 1 mL IM (01:54)
[2023-05-07] MEDS: diphenhydrAMINE 50 mg/mL SDV 1mL IM (01:54)
--- NOTE | 2023-05-07 01:55 | PC.NURSE ---
Pt agitated and aggressive w/staff, why the fuck am I here ? Attempted to explain to the patient why he was here, he became belligerent and stomped back to his room and slammed his door shut. One on one care and redirection was attempt w/o success. Offered pt IM B52 for behaviors and belligerence w/increased anxiety, pt stated just give me the fucking dope . Pt allowed for the injections to be administered w/o resistance. Pt is now resting in bed, increased staff presence. Montoring continues for behaviors.
[2023-05-07 06:00] VITALS: RESP 16
[2023-05-07] MEDS: pantoprazole DR 40 mg Tablet PO (09:15)
[2023-05-07] MEDS: sucralfate 1 gm Tablet PO ×2 (09:15→12:18)
[2023-05-07] MEDS: naltrexone hcl 50 mg Tablet PO (09:15)
[2023-05-07] MEDS: chlordiazePOXIDE 25 mg Capsule 50 MG PO (09:16)
[2023-05-07] MEDS: multivitamin therapeutic Tablet 1 TAB PO (09:17)
[2023-05-07] MEDS: prenatal vitamin Capsule 1 CAP PO (09:17)
[2023-05-07] MEDS: folic acid 1 mg Tablet PO (09:17)
[2023-05-07] MEDS: gabapentin 100 mg Capsule PO ×2 (09:17→13:52)
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
[2023-05-07 14:24] VITALS: BP 106/72; PULSE 61; RESP 16; O2SAT 99
== END 2023-05-07 14:50 | disposition home or self-care (01) | DRG 918 ==
LOC: ER 05-03 02:41 → ICU 05-03 05:08 → NP 05-04 19:22 → ICU 05-05 07:57
PROVIDERS: Emergency Medicine; Family Medicine; Admitting Provider Family Medicine; Emergency Provider Emergency Medicine; PCP Psychiatry & Neurology Psychiatry; Visit Provider Psychiatry & Neurology Psychiatry
DX: T50.994A Poisoning by other drugs, medicaments and biological substances, undetermined, initial encounter (principal); F33.9 Major depressive disorder, recurrent, unspecified; R45.851 Suicidal ideations; Y90.6 Blood alcohol level of 120-199 mg/100 ml; F43.10 Post-traumatic stress disorder, unspecified; F41.1 Generalized anxiety disorder; F10.20 Alcohol dependence, uncomplicated; F11.10 Opioid abuse, uncomplicated; Z91.128 Patient's intentional underdosing of medication regimen for other reason; Z59.00 Homelessness unspecified; F17.200 Nicotine dependence, unspecified, uncomplicated
CPT/HCPCS: 36415; 80053; 80061; 80306; 80307; 81003; 82140; 82607; 82746; 83036; 83605; 83690; 83735; 83880; 84145; 84443; 85025; 85610; 93005; 94664; 96372; 96374; 96375; 96376; 97165; 99238; 99285; C9113; J1200; J1630; J1650; J2060; J2405; J3411; J7030; J7042; Q0162

== ENCOUNTER 2023-05-08 09:29 | Emergency (ER) | payer MEDICAID, SELFPAY ==
[2023-05-08 09:30] VITALS: BP 119/72; PULSE 80; RESP 16; TEMP 36.6; O2SAT 97
--- NOTE | 2023-05-08 09:55 | PC.NURSE ---
PATIENT HAD HOME MEDICATIONS UNDERNEATH LEG. NURSE ASKED FOR HOME MEDS DUE TO SAFETY ISSUE. MEDS GIVEN TO 1:1 SITTER TO HOLD.
[2023-05-08 10:02] LABS: Add Urine Microscopic? NO; Charge for UA Resulting for Rev
[2023-05-08 10:08] LABS: Basophils # 0.1 10^3/uL (0.0-0.1); Basophils % 0.9 %; Eosinophils # 0.1 10^3/uL (0.0-0.8); Eosinophils % 1.5 %; Hematocrit 36.6 % (37-53); Lymphocytes # 1.1 10^3/uL (0.8-4.8); Lymphocytes % 19.1 %; Mean Corpuscular HGB Conc 32.2 g/dL (30-55); Mean Corpuscular Hemoglobin 29.3 pg (27-33); Mean Corpuscular Volume 90.8 fl (82-101); Mean Platelet Volume 9.3 fL (7.4-10.4); Monocytes # 0.6 10^3/uL (0.2-0.9); Monocytes % 10.6 %; Neutrophils # 3.97 10^3/uL (1.8-7.7); Neutrophils % 67.6 %; Nucleated Red Blood Cells % 0 %; Platelet Count 401 10^3/cmm (157-399); Red Blood Count 4.03 10^6/uL (3.85-5.65); Red Cell Distribution Width 14.2 % (12.1-15.1); White Blood Count 5.87 10^3/uL (3.29-11.43)
--- NOTE | 2023-05-08 10:08 | ECG_ITS ---
[facility] Test Date: 2023-05-08 Pat Name: Hector Hunter Department: Room: Gender: Male [employer] Teacher: : 1975 Requested By: Jose Ramon Koroma Order Number: [id number] Jeremy MD: Raleigh Mari M.D. Measurements Intervals [place] Rate: 72 P: 49 SD: 161 QRS: 14 QRSD: 93 T: 49 QT: 387 QTc: 424 Interpretive Statements SINUS RHYTHM Compared to ECG 05/02/2023 21:58:25 Intraventricular conduction delay no longer present T-wave abnormality no longer present Electronically Signed On 05-08-2023 10:13:26 CDT by Raleigh Mari M.D. [id number]
[2023-05-08 10:13] LABS: Bilirubin Urine Neg (Negative); Blood Urine Neg (Negative); Glucose Urine UA Norm (Normal); Ketones Urine Negative (Negative); Leukocyte Esterase Urine Negative (Negative); Nitrate Urine Negative (Negative); Protein Urine Neg (Negative); Urine Appearance Clear (CLEAR); Urine Color Yellow (Yellow); Urobilinogen Urine Norm (Negative); pH Urine 7 (5-7)
[2023-05-08 10:15] LABS: Alanine Aminotransferase 14 U/L (0-41); Albumin Level 3.9 g/dL (3.5-5.2); Alcohol Level 177 mg/dL (0-10); Alkaline Phosphatase 75 U/L (40-130); Anion Gap 14.6 (5-19); Blood Urea Nitrogen 7 mg/dL (6-20); Carbon Dioxide 23 mmol/L (22-29); Chloride 105 mmol/L (98-107); Creatinine Clr Calc Pharmacy 116.3257; Globulin 2.8 g/dL (1.3-4.6); Glomerular Filtration Rate 103.2 mL/min (90-130); Glucose 116 mg/dL (65-115); Osmolality Calculated 287 mOsm/kg (285-295); Potassium 3.6 mmol/L (3.5-5.1); Salicylate 0.8 mg/dL (3-10); Sodium 139 mmol/L (136-145); Total Bilirubin 0.2 mg/dL (0.15-1.2); Total Protein 6.7 g/dL (6.6-8.7)
[2023-05-08 10:16] LABS: Acetaminophen < 5.0 ug/mL (10-30)
[2023-05-08 10:18] LABS: Amphetamines Screen Urine Negative (Negative); Barbiturates Screen Urine Negative (Negative); Benzodiazepines Screen Urine Positive (Negative); Cocaine Screen Urine Negative (Negative); Opiate Screen Urine Negative (Negative); PCP Screen Urine Negative (Negative); THC Screen Urine Negative (Negative)
[2023-05-08 10:23] VITALS: BP 106/46; PULSE 73; O2SAT 93
[2023-05-08 10:23] LABS: Aspartate Amino Transferase 29 U/L (0-40)
--- NOTE | 2023-05-08 10:23 | ED_ITS ---
HPI - Alcohol General: Chief Complaint: Alcohol Stated Complaint: ETOH, CONFUSION Time Seen by Provider: 05/08/23 09:49 Source: patient Mode of arrival: ambulatory History of Present Illness: 47-year-old male presents to the emergency room acutely intoxicated admits to having been drinking just prior to arrival he wants to stop drinking. He is awake and alert has no signs of delirium tremors he has been Recently hospitalized in our MPU and was discharged home on the . Today he says he wants to be admitted to prevent withdrawal from alcohol. MD complaint: alcohol intoxication Chronic alcohol use: Yes Previous visits for alcohol intoxication: Yes Associated symptoms: Deny abdominal pain, depression, hematemesis, involuntary movements, nausea, seizure-like activity, suicidal ideation, syncope or vomiting Treatments prior to arrival: none Review of Systems Const: Denies: fever(s), chills, fatigue or malaise Card: Denies: chest pain, palpitations, irregular heart rhythm or syncope Resp: Denies: dyspnea, productive cough or non-productive cough GI: Denies: abdominal pain, nausea, vomiting or hematemesis : Denies: flank pain, dysuria, urinary frequency or urinary urgency Musc: Denies: neck pain or back pain Skin/Breast: Denies: rash or pruritus Neuro: Denies: seizure-like activity or involuntary movements Psych: Denies: depression or suicidal ideation [facility] ED PFSH: Medical History Alcohol use disorder Depressive disorder Polysubstance abuse Psychiatric care Social History Smoking and tobacco status: current every day smoker Alcohol intake: current Alcohol intake frequency: 3 or more drinks per day Alcohol type: hard liquor Desire information about alcohol rehabilitation?: Yes Counseling given: Yes Physical Exam Const: GENERAL APPEARANCE: cooperative ORIENTATION/CONSCIOUSNESS: Yes awake HENMT: COMMON NORMALS: normocephalic, atraumatic and hearing grossly normal bilaterally HEAD & SCALP: normocephalic and atraumatic Resp: COMMON NORMALS: normal respiratory effort, No retractions, No use of accessory muscles and clear to auscultation bilaterally AUSCULTATION: clear to auscultation bilaterally Cardio: COMMON NORMALS: regular rate, regular rhythm and No murmurs present (Cardio) RATE: regular rate RHYTHM: regular rhythm GI: COMMON NORMALS: Soft to palpation and No hepatosplenomegaly present AUSCULTATION: Yes normoactive bowel sounds PALPATION: Yes Soft to palpation, No Tenderness to palpation present (GI), No Guarding due to palpation present (GI) and Yes No hepatosplenomegaly present Extremity: COMMON NORMALS: normal to inspection, capillary refill normal, no clubbing, cyanosis or edema, no calf tenderness and no pedal edema Skin: COMMON NORMALS: no rashes or lesions noted GENERAL SKIN EXAM: no rashes or lesions noted Course Vital Signs: Vital signs: Vital Signs Temperature 97.9 F 05/08/23 09:30 Pulse Rate 73 05/08/23 10:23 Respiratory Rate 16 05/08/23 09:30 Blood Pressure 106/46 05/08/23 10:23 Pulse Oximetry 93 05/08/23 10:23 Oxygen Delivery Me thod Room Air 05/08/23 10:23 MDM - Alcohol Medical Decision Making Patient is acutely intact at this time. He tells me he is already started the process to get into the program at [facility] here in [facility]. Discharge him home on chlordiazepoxide on a tapering dose. Continue his other medications abstain from alcohol. Medical Records I reviewed the patient's medical records. Lab Data I reviewed the patient's lab results. 05/08/23 09:50 05/08/23 09:50 Laboratory Results WBC 5.87 10^3/uL (3.29-11.43) 05/08/23 09:50 RBC 4.03 10^6/uL (3.85-5.65) 05/08/23 09:50 Hgb 11.80 g/dL (11.27-16.99) 05/08/23 09:50 Hct 36.6 % (37-53) L 05/08/23 09:50 MCV 90.8 fl (82-101) 05/08/23 09:50 MCH 29.3 pg (27-33) 05/08/23 09:50 MCHC 32.2 g/dL (30-55) 05/08/23 09:50 RDW 14.2 % (12.1-15.1) 05/08/23 09:50 Plt Count 401 10^3/cmm (157-399) H 05/08/23 09:50 MPV 9.3 fL (7.4-10.4) 05/08/23 09:50 Neut % (Auto) 67.6 % 05/08/23 09:50 Lymph % (Auto) 19.1 % 05/08/23 09:50 [place] % (Auto) 10.6 % 05/08/23 09:50 Eos % (Auto) 1.5 % 05/08/23 09:50 Baso % (Auto) 0.9 % 05/08/23 09:50 Neut # (Auto) 3.97 10^3/uL (1.8-7.7) 05/08/23 09:50 Lymph # (Auto) 1.1 10^3/uL (0.8-4.8) 05/08/23 09:50 [place] # (Auto) 0.6 10^3/uL (0.2-0.9) 05/08/23 09:50 Eos # (Auto) 0.1 10^3/uL (0.0-0.8) 05/08/23 09:50 Baso # (Auto) 0.1 10^3/uL (0.0-0.1) 05/08/23 09:50 Nucleated RBC % (auto) 0 % 05/08/23 09:50 Nucleated RBCs # 0.0 /100WBC 05/08/23 09:50 Sodium 139 mmol/L (136-145) 05/08/23 09:50 Potassium 3.6 mmol/L (3.5-5.1) 05/08/23 09:50 Chloride 105 mmol/L (98-107) 05/08/23 09:50 Carbon Dioxide 23 mmol/L (22-29) 05/08/23 09:50 Anion Gap 14.6 (5-19) 05/08/23 09:50 BUN 7 mg/dL (6-20) 05/08/23 09:50 Creatinine 0.8 mg/dL (0.7-1.2) 05/08/23 09:50 GFR Calculation 103.2 mL/min (90-130) 05/08/23 09:50 Glucose 116 mg/dL (65-115) H 05/08/23 09:50 Calculated Osmolality 287 mOsm/kg (285-295) 05/08/23 09:50 Calcium 9.0 mg/dL (8.5-10.5) 05/08/23 09:50 Total Bilirubin 0.2 mg/dL (0.15-1.2) 05/08/23 09:50 AST 29 U/L (0-40) 05/08/23 09:50 ALT 14 U/L (0-41) 05/08/23 09:50 Alkaline Phosphatase 75 U/L (40-130) 05/08/23 09:50 Total Protein 6.7 g/dL (6.6-8.7) 05/08/23 09:50 Albumin 3.9 g/dL (3.5-5.2) 05/08/23 09:50 Globulin 2.8 g/dL (1.3-4.6) 05/08/23 09:50 Urine Color Yellow (Yellow) 05/08/23 09:50 Urine Appearance Clear (CLEAR) 05/08/23 09:50 Urine pH 7 (5-7) 05/08/23 09:50 Ur Specific [place] 1.000 (1.005-1.030) L 05/08/23 09:50 Urine Protein Neg (Negative) 05/08/23 09:50 Urine Glucose (UA) Norm (Normal) 05/08/23 09:50 Urine Ketones Negative (Negative) 05/08/23 09:50 Urine Blood Neg (Negative) 05/08/23 09:50 Urine Nitrate Negative (Negative) 05/08/23 09:50 Urine Bilirubin Neg (Negative) 05/08/23 09:50 Urine Urobilinogen Norm mg/dL (Negative) 05/08/23 09:50 Ur Leukocyte Esterase Negative (Negative) 05/08/23 09:50 Salicylates 0.8 mg/dL (3-10) L 05/08/23 09:50 Urine Opiates Screen Negative ng/mL (Negative) 05/08/23 09:50 Acetaminophen < 5.0 ug/mL (10-30) L 05/08/23 09:50 Ur Barbiturates Screen Negative ng/mL (Negative) 05/08/23 09:50 Ur Phencyclidine Scrn Negative ng/mL (Negative) 05/08/23 09:50 Ur Amphetamines Screen Negative ng/mL (Negative) 05/08/23 09:50 U Benzodiazepines Scrn Positive ng/mL (Negative) H 08/31/23 09:50 Urine Cocaine Screen Negative ng/mL (Negative) 05/08/23 09:50 U Marijuana (THC) Screen Negative ng/mL (Negative) 05/08/23 09:50 Ethyl Alcohol 177 mg/dL (0-10) H 05/08/23 09:50 Discharge Plan Discharge Patient Disposition: Home Clinical Impression: Alcoholic intoxication Condition: Stable Prescriptions: New chlordiazepoxide HCl 25 mg capsule 25 mg PO BID Qty: 10 0RF Rx Instructions: 1 pill twice daily for 3 days then 1 pill daily for 4 days No Action hydroxyzine pamoate 50 mg capsule 50 mg PO QID PRN (Reason: Anxiety) pantoprazole 40 mg tablet,delayed release (DR/EC) 40 mg PO BID Vitamin Plus Low Iron 27 mg iron- 1 mg tablet 1 tab PO DAILY sucralfate 1 gram tablet 1 g PO QID dicyclomine 20 mg tablet 20 mg PO QID PRN (Reason: Pain) Rx Instructions: MILD PAIN OR TEMP mirtazapine 30 mg Tablet 30 mg PO BEDTIME 30 Days Qty: 30 1RF naltrexone 50 mg tablet 50 mg PO DAILY 30 Days Qty: 30 1RF chlordiazepoxide HCl 25 mg capsule See Rx Instructions .ROUTE .COMPLEX Qty: 8 0RF Rx Instructions: Take 2 tabs twice a day on day 1 then take one tablet daily for days 2-7. gabapentin 100 mg capsule 100 mg PO TID 30 Days Qty: 90 1RF Discharge Orders: Discharge ED (Routine); Ordered 05/08/23 Ordered By: Jose Ramon Bhat Referrals: Mark Wong DO [Primary Care Provider] - Discharge Diet: Usual diet Discharge Activity: Increase activity as tolerated Patient Instructions: Abuse of Alcohol (ED), Opioid Safety, Pain Management Coding Level of Care Code ED Computer Methods Analyst for Abisai Fermin
== END 2023-05-08 10:52 | disposition home or self-care (01) ==
PROVIDERS: Emergency Provider Family Medicine; PCP Psychiatry & Neurology Psychiatry
DX: F10.129 Alcohol abuse with intoxication, unspecified (principal); Y90.6 Blood alcohol level of 120-199 mg/100 ml; F17.210 Nicotine dependence, cigarettes, uncomplicated
CPT/HCPCS: 80053; 80306; 80307; 81003; 85025; 93005; 99284

== ENCOUNTER 2023-05-08 13:18 | Emergency (ER) | payer MEDICAID, SELFPAY ==
[2023-05-08 13:31] VITALS: BP 104/70; PULSE 85; RESP 17; TEMP 36.5; O2SAT 97; BMI 22.9
[2023-05-08 14:56] LABS: Alcohol Level 163 mg/dL (0-10)
--- NOTE | 2023-05-08 15:40 | W.ED.ALCOHOL ---
HPI - Alcohol General: Chief Complaint: Alcohol Stated Complaint: sob Time Seen by Provider: 05/08/23 13:54 Source: patient Mode of arrival: ambulatory History of Present Illness: Patient returns emergency room he had been here earlier he drank some more vodka after he left and returns again requesting help with stopping drinking. He frequents the emergency room when he gets on a hernandez sometimes multiple times a day. Often when he begins to sober up a bit that he will want to leave. He has had some pretty impressively high blood alcohol levels where he is very functional. 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 Previous visits for alcohol intoxication: Yes Associated symptoms: Deny abdominal pain, depression, diaphoresis, hematemesis, involuntary movements, melena, nausea, seizure-like activity, suicidal ideation, syncope or vomiting Review of Systems Const: Denies: fever(s), chills or diaphoresis ENMT: Denies: throat pain, ear or mastoid pain, nasal discharge or nasal congestion Card: Denies: syncope Resp: Denies: dyspnea, productive cough or non-productive cough GI: Denies: abdominal pain, nausea, vomiting, hematemesis or melena : Denies: flank pain, dysuria, urinary frequency or urinary urgency Skin/Breast: Denies: rash or pruritus Neuro: Denies: seizure-like activity or involuntary movements Psych: Denies: depression or suicidal ideation PFSH ED PFSH: Medical History Alcohol use disorder Depressive disorder Polysubstance abuse Psychiatric care Social History Smoking and tobacco status: current every day smoker Alcohol intake: current Alcohol intake frequency: 3 or more drinks per day Alcohol type: hard liquor Desire information about alcohol rehabilitation?: Yes Counseling given: Yes Physical Exam Const: GENERAL APPEARANCE: lethargic NUTRITIONAL APPEARANCE: thin ORIENTATION/CONSCIOUSNESS: Yes lethargic HENMT: COMMON NORMALS: normocephalic, atraumatic and hearing grossly normal bilaterally HEAD & SCALP: normocephalic and atraumatic Resp: COMMON NORMALS: normal respiratory effort, No retractions, No use of accessory muscles and clear to auscultation bilaterally AUSCULTATION: clear to auscultation bilaterally Cardio: COMMON NORMALS: regular rate, regular rhythm and No murmurs present (Cardio) RATE: regular rate RHYTHM: regular rhythm GI: COMMON NORMALS: Soft to palpation and No hepatosplenomegaly present AUSCULTATION: Yes normoactive bowel sounds PALPATION: Yes Soft to palpation, No Tenderness to palpation present (GI), No Guarding due to palpation present (GI) and Yes No hepatosplenomegaly present Extremity: COMMON NORMALS: normal to inspection, capillary refill normal, no clubbing, cyanosis or edema, no calf tenderness and no pedal edema Neuro: SENSORIUM/ORIENTATION: Yes lethargic Skin: COMMON NORMALS: no rashes or lesions noted GENERAL SKIN EXAM: no rashes or lesions noted Course Vital Signs: Vital signs: Vital Signs Temperature 97.7 F 05/08/23 13:31 Pulse Rate 85 05/08/23 13:31 Respiratory Rate 17 05/08/23 13:31 Blood Pressure 104/70 05/08/23 13:31 Pulse Oximetry 97 05/08/23 13:31 Oxygen Delivery Me thod Room Air 05/08/23 13:31 MDM - Alcohol Medical Decision Making We recommended that the patient stay he is refusing. He initially claimed was taken Suboxone he think he took all of the chlordiazepoxide. He is not altered at this time beyond his usual alcohol we recommended that he stay but he is insisting on leaving he denies any suicidal homicidal ideation. Advised that he is welcome return at any point. Medical Records I reviewed the patient's medical records. Lab Data I reviewed the patient's lab results. Laboratory Results Ethyl Alcohol 163 mg/dL (0-10) H 05/08/23 14:22 Discharge Plan Discharge Patient Disposition: Left Against Medical Advice Clinical Impression: Alcoholic intoxication Condition: Stable Prescriptions: No Action chlordiazepoxide HCl 25 mg capsule See Rx Instructions .ROUTE .COMPLEX Rx Instructions: 1 pill twice daily for 3 days then 1 pill daily for 4 days hydroxyzine pamoate 50 mg capsule 50 mg PO QID PRN (Reason: Anxiety) pantoprazole 40 mg tablet,delayed release (DR/EC) 40 mg PO BID Vitamin Plus Low Iron 27 mg iron- 1 mg tablet 1 tab PO DAILY mirtazapine 30 mg Tablet 30 mg PO BEDTIME 30 Days Qty: 30 1RF naltrexone 50 mg tablet 50 mg PO DAILY 30 Days Qty: 30 1RF chlordiazepoxide HCl 25 mg capsule See Rx Instructions .ROUTE .COMPLEX Qty: 8 0RF Rx Instructions: Take 2 tabs twice a day on day 1 then take one tablet daily for days 2-7. gabapentin 100 mg capsule 100 mg PO TID 30 Days Qty: 90 1RF Coding Level of Care Code ED Computer Applications Developer for Abisai Fermin
--- NOTE | 2023-05-08 17:30 | PC.NURSE ---
pt attempted to exit facility. nurse notified by 1:1 sitter. pt redirected to room. pt stated wished to leave. provider notified. both nurse and provider educated on need for admittance, patient refused. pt signed ama waiver. pt exited facility.
== END 2023-05-08 17:34 | disposition left against medical advice (07) ==
PROVIDERS: Emergency Medicine; Emergency Provider Family Medicine
DX: F10.129 Alcohol abuse with intoxication, unspecified (principal); Z53.21 Procedure and treatment not carried out due to patient leaving prior to being seen by health care provider; Y90.6 Blood alcohol level of 120-199 mg/100 ml; F17.210 Nicotine dependence, cigarettes, uncomplicated
CPT/HCPCS: 36415; 80307; 99283

== ENCOUNTER 2023-05-08 20:26 | Emergency (ER) | payer OTHER, MEDICAID, SELFPAY ==
[2023-05-08 20:30] VITALS: BP 114/70; PULSE 77; RESP 18; TEMP 36.6; O2SAT 97; BMI 24.3
--- NOTE | 2023-05-08 20:36 | ED_ITS ---
[facility] Adult General: Chief complaint: GI Bleed Stated complaint: GI bleed Time Seen by Provider: 05/08/23 20:28 Source: patient and EMS Mode of arrival: EMS Limitations: no limitations History of Present Illness: 39-year-old male who is very well-known to the ER has a long history of alcoholism he had been drinking today he states that he went to [facility] today had a bowel movement states he thought there was blood in it. He denies any weakness he had no vomiting denies any abdominal pain. Associated symptoms: Deny chest pain, dyspnea, headache(s), nausea, rash or vomiting Review of Systems Const: Denies: fever(s), chills, body aches or change in appetite ENMT: Denies: throat pain or dental pain Card: Denies: chest pain Resp: Denies: dyspnea GI: Reports: hematochezia; Denies: abdominal pain, nausea, vomiting or diarrhea Musc: Denies: neck pain or back pain Skin/Breast: Denies: rash Neuro: Denies: headache(s) PFSH ED PFSH: Medical History Alcohol use disorder Depressive disorder Polysubstance abuse Psychiatric care Social History Smoking and tobacco status: current every day smoker Alcohol intake: current Alcohol intake frequency: 3 or more drinks per day Alcohol type: hard liquor Desire information about alcohol rehabilitation?: Yes Counseling given: Yes Physical Exam Const: COMMON NORMALS: no acute distress, patient oriented x3 and healthy appearing GENERAL APPEARANCE: odor of alcohol detected HENMT: COMMON NORMALS: normocephalic and atraumatic HEAD & SCALP: normocephalic and atraumatic Eye: COMMON NORMALS: Equal, round and reactive pupils present and EOMs intact bilaterally PUPIL: Yes Equal, round and reactive pupils present Neck/C-Spine: COMMON NORMALS: full ROM and supple Chest: COMMONS NORMALS: normal inspection of the chest and normal palpation of entire chest wall Resp: COMMON NORMALS: normal respiratory effort, No retractions, No use of accessory muscles and clear to auscultation bilaterally AUSCULTATION: clear to auscultation bilaterally Cardio: COMMON NORMALS: regular rate, regular rhythm and No murmurs present (Cardio) RATE: regular rate RHYTHM: regular rhythm GI: COMMON NORMALS: Normal to inspection, nondistended, normoactive bowel sounds present, Soft to palpation, non-tender and no masses PALPATION: Yes Soft to palpation Extremity: COMMON NORMALS: normal to inspection and full ROM Neuro: COMMON NORMALS: patient oriented x3, moves all extremities and no focal motor deficits Psych: COMMON NORMALS: mental status grossly normal, Normal thought process present and cooperative THOUGHT PROCESS: Normal thought process present Skin: COMMON NORMALS: no rashes or lesions noted and no wounds GENERAL SKIN EXAM: no rashes or lesions noted Course Vital Signs: Vital signs: Vital Signs Temperature 98 F 05/08/23 20:30 Pulse Rate 75 05/08/23 20:56 Respiratory Rate 16 05/08/23 20:56 Blood Pressure 105/63 05/08/23 20:56 Pulse Oximetry 96 05/08/23 20:56 Oxygen Delivery Me thod Room Air 05/08/23 20:30 MDM - General Adult Medical Decision Making Patient presents here with alcohol tox patient also complaint GI bleed no sign of GI bleed here patient became upset that he was not getting Ativan and signed out AGAINST MEDICAL ADVICE he is answering questions appropriately has medical decision-making capacity. Medical Records I reviewed the patient's medical records. Lab Data I reviewed the patient's lab results. 05/08/23 21:30 05/08/23 21:30 Discharge Plan Discharge Condition: Stable Prescriptions: No Action chlordiazepoxide HCl 25 mg capsule 25 mg PO BID Qty: 10 0RF Rx Instructions: 1 pill twice daily for 3 days then 1 pill daily for 4 days hydroxyzine pamoate 50 mg capsule 50 mg PO QID PRN (Reason: Anxiety) pantoprazole 40 mg tablet,delayed release (DR/EC) 40 mg PO BID Vitamin Plus Low Iron 27 mg iron- 1 mg tablet 1 tab PO DAILY mirtazapine 30 mg Tablet 30 mg PO BEDTIME 30 Days Qty: 30 1RF naltrexone 50 mg tablet 50 mg PO DAILY 30 Days Qty: 30 1RF chlordiazepoxide HCl 25 mg capsule See Rx Instructions .ROUTE .COMPLEX Qty: 8 0RF Rx Instructions: Take 2 tabs twice a day on day 1 then take one tablet daily for days 2-7. gabapentin 100 mg capsule 100 mg PO TID 30 Days Qty: 90 1RF Referrals: Mark Wong DO [Primary Care Provider] - Coding Level of Care Code ED Clinical Analyst for Chg Zander
[2023-05-08 20:56] VITALS: BP 105/63; PULSE 75; RESP 16; O2SAT 96
[2023-05-08] MEDS: sodium chloride 0.9% 1,000 ML 999 ML IV (20:59)
[2023-05-08 21:41] LABS: Basophils # 0.1 10^3/uL (0.0-0.1); Basophils % 1.2 %; Eosinophils # 0.2 10^3/uL (0.0-0.8); Eosinophils % 2.9 %; Hematocrit 38.8 % (37-53); Lymphocytes # 1.6 10^3/uL (0.8-4.8); Lymphocytes % 30.9 %; Mean Corpuscular HGB Conc 32.2 g/dL (30-55); Mean Corpuscular Hemoglobin 29.6 pg (27-33); Mean Corpuscular Volume 91.9 fl (82-101); Mean Platelet Volume 9.3 fL (7.4-10.4); Monocytes # 0.6 10^3/uL (0.2-0.9); Monocytes % 10.8 %; Neutrophils # 2.76 10^3/uL (1.8-7.7); Nucleated Red Blood Cells % 0 %; Platelet Count 433 10^3/cmm (157-399); Red Blood Count 4.22 10^6/uL (3.85-5.65); Red Cell Distribution Width 14.6 % (12.1-15.1); White Blood Count 5.11 10^3/uL (3.29-11.43)
[2023-05-08 21:54] LABS: INR 1.03 (0.8-1.2)
[2023-05-08 21:58] LABS: Alanine Aminotransferase 17 U/L (0-41); Albumin Level 4.2 g/dL (3.5-5.2); Alcohol Level 197 mg/dL (0-10); Alkaline Phosphatase 79 U/L (40-130); Anion Gap 15.9 (5-19); Aspartate Amino Transferase 31 U/L (0-40); Blood Urea Nitrogen 8 mg/dL (6-20); Calcium 9.5 mg/dL (8.5-10.5); Carbon Dioxide 25 mmol/L (22-29); Chloride 111 mmol/L (98-107); Creatinine Clr Calc Pharmacy 119.2237; Globulin 2.8 g/dL (1.3-4.6); Glomerular Filtration Rate 103.2 mL/min (90-130); Glucose 86 mg/dL (65-115); Lipase 38 U/L (13-60); Osmolality Calculated 304 mOsm/kg (285-295); Potassium 3.9 mmol/L (3.5-5.1); Sodium 148 mmol/L (136-145); Total Bilirubin 0.2 mg/dL (0.15-1.2)
== END 2023-05-08 21:43 | disposition left against medical advice (07) ==
PROVIDERS: Emergency Provider Emergency Medicine; PCP Psychiatry & Neurology Psychiatry
DX: K92.2 Gastrointestinal hemorrhage, unspecified (principal); F17.210 Nicotine dependence, cigarettes, uncomplicated
CPT/HCPCS: 36415; 80053; 80307; 83690; 85025; 85610; 99284; J7030

== ENCOUNTER 2023-05-09 00:11 | Inpatient (IN) | payer MEDICAID, SELFPAY ==
[2023-05-09 00:19] VITALS: BP 127/77; PULSE 76; RESP 18; TEMP 36.6; O2SAT 98; BMI 23.3
--- NOTE | 2023-05-09 01:01 | ED_ITS ---
HPI - Alcohol General: Chief Complaint: Alcohol Stated Complaint: weakness, body aches Time Seen by Provider: 05/09/23 00:51 History of Present Illness: 47-year-old male patient comes in today reporting just general body aches. Patient reports has been 8 hours since his last alcohol consumption. Patient had been in twice today and had left prior to completion of treatment. Patient appears nontoxic. Patient is alert and answering questions appropriately. Patient states that he would like to have assistance with getting off alcohol. At this time we have no executive secretary social welfare available to talk with patient regarding programs in the area for alcohol dependence. I recommend patient come back in the morning and talk to executive secretary social welfare about such programs. Associated symptoms: Deny nausea or vomiting Review of Systems General: Reports: 10 or more systems reviewed and unremarkable except in HPI and below Const: Denies: fever(s) Eyes: Denies: change in vision Card: Denies: chest pain Resp: Denies: dyspnea GI: Denies: nausea or vomiting : Denies: difficulty urinating Musc: Reports: back pain Neuro: Denies: headache(s) PFSH ED PFSH: Medical History Alcohol use disorder Depressive disorder Polysubstance abuse Psychiatric care Social History Smoking and tobacco status: current every day smoker Alcohol intake: current Alcohol intake frequency: 3 or more drinks per day Alcohol type: hard liquor Desire information about alcohol rehabilitation?: Yes Counseling given: Yes Physical Exam Const: COMMON NORMALS: alert HENMT: COMMON NORMALS: normocephalic HEAD & SCALP: normocephalic Neck/C-Spine: COMMON NORMALS: full ROM Resp: COMMON NORMALS: normal respiratory effort Cardio: COMMON NORMALS: regular rate and regular rhythm RATE: regular rate RHYTHM: regular rhythm GI: COMMON NORMALS: non-tender Extremity: COMMON NORMALS: no pedal edema Neuro: SENSORIUM/ORIENTATION: Yes alert Skin: COMMON NORMALS: turgor normal GENERAL SKIN EXAM: turgor normal Course Vital Signs: Vital signs: Vital Signs Temperature 98 F 05/09/23 00:19 Pulse Rate 76 05/09/23 00:19 Respiratory Rate 18 05/09/23 00:19 Blood Pressure 127/77 05/09/23 00:19 Pulse Oximetry 98 05/09/23 00:19 Oxygen Delivery Me thod Room Air 05/09/23 00:19 MDM - Alcohol Medical Decision Making 47-year-old male patient comes in today for complaints of back pain and looking for assistance to get off alcohol. On exam patient appears nontoxic. Patient is alert and answering questions appropriately. Patient denies any suicidal homicidal ideation. Patient does admit to being homeless. Patient's last drink was 8 hours prior to this visit. Differential diagnosis includes not limited to alcohol use disorder, polysubstance abuse disorder, anxiety about health, major depression, homelessness. Reviewed exam with patient recommendations for treatment and follow-up with a outpatient alcohol treatment center. We have no available information for such programs at this time patient was recommended to come back in the morning to discuss with executive secretary social welfare for such programs. Patient reported understanding and agreed to plan. Discharge Plan Discharge Patient Disposition: Home Clinical Impression: Alcoholic intoxication Qualifiers: Complication of substance-induced condition: uncomplicated Qualified Code(s): F10.920 - Alcohol use, unspecified with intoxication, uncomplicated Condition: Stable Prescriptions: No Action chlordiazepoxide HCl 25 mg capsule 25 mg PO BID Qty: 10 0RF Rx Instructions: 1 pill twice daily for 3 days then 1 pill daily for 4 days hydroxyzine pamoate 50 mg capsule 50 mg PO QID PRN (Reason: Anxiety) pantoprazole 40 mg tablet,delayed release (DR/EC) 40 mg PO BID Vitamin Plus Low Iron 27 mg iron- 1 mg tablet 1 tab PO DAILY mirtazapine 30 mg Tablet 30 mg PO BEDTIME 30 Days Qty: 30 1RF naltrexone 50 mg tablet 50 mg PO DAILY 30 Days Qty: 30 1RF chlordiazepoxide HCl 25 mg capsule See Rx Instructions .ROUTE .COMPLEX Qty: 8 0RF Rx Instructions: Take 2 tabs twice a day on day 1 then take one tablet daily for days 2-7. gabapentin 100 mg capsule 100 mg PO TID 30 Days Qty: 90 1RF Discharge Orders: Discharge ED (Routine); Ordered 05/09/23 Ordered By: David Lauren Discharge Diet: Usual diet Discharge Activity: Increase activity as tolerated Patient Instructions: Alcohol Use Disorder (ED) Activity Restrictions/Additional Instructions: Healthy diet and activity. Continue decreasing alcohol usage. Follow-up with primary care. Return in the morning to talk with executive secretary social welfare regarding alcohol detox programs. Coding Level of Care Code ED Joinery Patternmaker for Abisai Fermin
--- NOTE | 2023-05-09 01:12 | PC.NURSE ---
when trying to discharge patient, patient states that he is now suicidal. I told the patient that I would update his physician with his status.
[2023-05-09 03:41] LABS: Alanine Aminotransferase 16 U/L (0-41); Albumin Level 3.5 g/dL (3.5-5.2); Alcohol Level 48 mg/dL (0-10); Alkaline Phosphatase 74 U/L (40-130); Blood Urea Nitrogen 9 mg/dL (6-20); Calcium 9.1 mg/dL (8.5-10.5); Carbon Dioxide 20 mmol/L (22-29); Chloride 109 mmol/L (98-107); Globulin 2.9 g/dL (1.3-4.6); Glomerular Filtration Rate 103.2 mL/min (90-130); Glucose 94 mg/dL (65-115); Osmolality Calculated 294 mOsm/kg (285-295); Sodium 143 mmol/L (136-145); Thyroid Stimulating Hormone 1.09 uIU/mL (0.27-4.20); Total Bilirubin 0.2 mg/dL (0.15-1.2); Total Protein 6.4 g/dL (6.6-8.7)
[2023-05-09 03:42] LABS: Acetaminophen < 5.0 ug/mL (10-30); Anion Gap 18.2 (5-19); Aspartate Amino Transferase 32 U/L (0-40); Potassium 4.2 mmol/L (3.5-5.1); Salicylate < 0.3 mg/dL (3-10)
[2023-05-09 03:44] LABS: Basophils # 0.1 10^3/uL (0.0-0.1); Basophils % 1.8 %; Eosinophils # 0.3 10^3/uL (0.0-0.8); Eosinophils % 5.1 %; Hematocrit 37.3 % (37-53); Lymphocytes # 2.1 10^3/uL (0.8-4.8); Lymphocytes % 36.3 %; Mean Corpuscular HGB Conc 31.9 g/dL (30-55); Mean Corpuscular Hemoglobin 29.5 pg (27-33); Mean Corpuscular Volume 92.6 fl (82-101); Mean Platelet Volume 9.2 fL (7.4-10.4); Monocytes # 0.7 10^3/uL (0.2-0.9); Monocytes % 12.5 %; Neutrophils # 2.48 10^3/uL (1.8-7.7); Neutrophils % 43.8 %; Nucleated Red Blood Cells % 0 %; Platelet Count 432 10^3/cmm (157-399); Red Blood Count 4.03 10^6/uL (3.85-5.65); Red Cell Distribution Width 14.3 % (12.1-15.1); White Blood Count 5.67 10^3/uL (3.29-11.43)
--- NOTE | 2023-05-09 07:52 | PC.PHAR ---
medications entered are from what ext history shows has been filled recently-notes are made in the pharmacy comments
[2023-05-09 08:02] VITALS: BP 152/71; PULSE 65; RESP 16; O2SAT 99
[2023-05-09 08:11] LABS: Add Urine Microscopic? NO; Charge for UA Resulting for Rev
[2023-05-09 08:22] LABS: Specific Gravity, Urine 1.015 (1.005-1.030); Urine Appearance Clear (CLEAR); Urine Color Yellow (Yellow); pH Urine 6 (5-7)
[2023-05-09 08:23] LABS: Bilirubin Urine Neg (Negative); Blood Urine Neg (Negative); Glucose Urine UA Norm (Normal); Ketones Urine Negative (Negative); Leukocyte Esterase Urine Negative (Negative); Nitrate Urine Negative (Negative); Protein Urine Neg (Negative); Urobilinogen Urine Norm (Negative)
[2023-05-09 08:36] LABS: Amphetamines Screen Urine Negative (Negative); Barbiturates Screen Urine Negative (Negative); Benzodiazepines Screen Urine Positive (Negative); Cocaine Screen Urine Negative (Negative); Opiate Screen Urine Negative (Negative); PCP Screen Urine Negative (Negative); THC Screen Urine Negative (Negative)
--- NOTE | 2023-05-09 09:10 | DCPLANNER ---
Case manger had message to give patient information on out patient treatment facilities for alcohol. mortgage branch manager gave patient information on treatment centers in the area.
[2023-05-09 12:30] VITALS: BP 137/82; PULSE 74; RESP 16; O2SAT 99
--- NOTE | 2023-05-09 13:32 | PC.NURSE ---
96Hr rights reviewed with patient with presence of [facility] security assurance analyst Lino, @[phone]. No questions or needs at this time verbalized by patient. Patient copy left at bedside.
[2023-05-09 16:26] VITALS: BP 117/76; PULSE 70; RESP 16; TEMP 36.6; O2SAT 97
[2023-05-09] MEDS: folic acid 1 mg Tablet PO (16:47)
[2023-05-09] MEDS: haloperidol 5 mg Tablet PO (16:47)
[2023-05-09] MEDS: multivitamin therapeutic Tablet 1 TAB PO (16:47)
[2023-05-09] MEDS: thiamine 100 mg Tablet PO (16:47)
[2023-05-09] MEDS: nicotine 2 mg Gum BUCCAL ×2 (17:31→20:07)
[2023-05-09] MEDS: LORazepam 2 mg/mL INJ 1 mL IM (18:11)
[2023-05-09] MEDS: diphenhydrAMINE 50 mg/mL SDV 1mL IM (18:11)
--- NOTE | 2023-05-09 18:12 | PC.NURSE ---
Patient agitated, throwing belongings in his room. Patient yelling. Staff talked with patient in liang. Patient requesting B52. With permission from Dr. Guthrie, staff administered 50mg Benadryl and 2mg Ativan IM to patient. Oral haldol 5mg had already been administered. Afterwards, patient tearful and grateful.
[2023-05-09] MEDS: LORazepam 2 mg Tablet PO (19:40)
[2023-05-09] MEDS: trazodone 50 mg Tablet PO (19:41)
[2023-05-09 19:53] VITALS: BP 128/87; PULSE 77; RESP 18; TEMP 36.4; O2SAT 98
--- NOTE | 2023-05-09 20:41 | PC.NURSE ---
Addendum entered and electronically signed by Libia Simms RN 05/10/23 06:00: MEDICATIONS WERE GIVEN, ATIVAN AND TRAZODONE WERE EFFECTIVE. PT HAS BEEN RESTING IN BED WITH EYES CLOSED SINCE APPROXIMATELY 2200, HAS SLEPT ABOUT 8 HOURS THIS SHIFT. Original Note: PT AT [facility]ES STATION DEMANDING I NEED THOSE SHOTS RIGHT NOW, CALL THAT [facility] AND GIVE THEM TO ME. EDUCATED PT THAT HE JUST RECEIVED INJECTIONS AT 611 PM AND THEY ARE NOT DUE OF YET. CIWA COMPLETED AND PT SCORED IN THE 20'S SEE ASSESSMENT FOR DETAIL ASSESSMENT. 2 MG OF ATIVAN WAS GIVEN ALONG WITH TRAZODONE 50 MG TO HELP PT SLEEP. PT STATES HE HAS NOT SLEPT IN DAYS PT REPORTS SUICIDAL THOUGHTS EVERYDAY. I'M GONNA MAKE IT LOOK LIKE AN ACCIDENT FOR MY INSURANCE AND MY DAUGHTER. PT REPORTS HE FEELS SAFE HERE BUT CONTINUES TO HAVE THOUGHTS HE WOULD BE BETTER OFF . PT REPORTS DRINKING HEAVY AMOUNTS OF ALCOHOL DAILY AND IS ON CIOK PROTOCOL TO ASSIST WITH WITHDRAWALS. PT IS VISIBLY ANXIOUS, HAS TREMORS AND SWEATING. REPORTS VISUAL DISTURBANCES. PT STATES HE ALSO WANT TO HURT PEOPLE AT TIMES. DENIES AH. DENIES PAIN EXCEPT FOR SLIGHT HEADACHE HE REFUSES TYLENOL AT THIS TIME. STATES HE DOES NOT WANT TO TAKE ANYTHING I DON'T KNOW WHAT IT IS. SPOKE WITH PT IN DEPTH AND PT DID GIVE REASONS TO LIVE, HIS DAUGHTER. PT REPORTS HE DID WELL FOR 3 YEARS AND WAS SOBER WHEN HE TOOK CELEXA 20 MG, XANAX 1 MG QID AND REMERON 15 MG AT HS. PT REASSURED THAT IT WOULD BE PASSED ON TO NURSING STAFF SO DR. VILLEGAS WILL BE AWARE. PT IS THANKFUL TO NURSE AND APOLAGIZED FOR NEGATIVE BEHAVIORS. ALL QUESTIONS ANSWERED AND SUPPORT VOICED.
[2023-05-10] MEDS: nicotine 2 mg Gum BUCCAL ×5 (00:56→19:45)
[2023-05-10] MEDS: LORazepam 2 mg Tablet PO (07:25)
[2023-05-10] MEDS: folic acid 1 mg Tablet PO (07:58)
[2023-05-10] MEDS: multivitamin therapeutic Tablet 1 TAB PO (07:58)
[2023-05-10] MEDS: hyDROXYzine 25 mg Capsule 50 MG PO ×2 (07:58→19:45)
[2023-05-10] MEDS: thiamine 100 mg Tablet PO (07:58)
[2023-05-10] MEDS: haloperidol 5 mg Tablet PO (07:58)
--- NOTE | 2023-05-10 08:10 | PC.NURSE ---
WHEN ASKED IF PT WAS THINKING OF HURTING HIMSELF OR OTHERS PT STATED IM NOT GOING TO ANSWER THAT. PT CURRENTLY ENDORSES ANXIETY AND AH,VH. PT STATED I AM HEARING SOMEONE SAY MY NAME, AND SEEING SPOTS IN THE CORNERS. PT WAS GIVEN PRN PO 2MG ATIVAN PER CIWA PROTOCOL. PT CURRENT NEEDS ARE MET AT THIS TIME.
[2023-05-10] MEDS: diphenhydrAMINE 50 mg/mL SDV 1mL IM ×2 (12:16→20:52)
[2023-05-10] MEDS: haloperidol inj 5 mg/mL INJ 1 mL IM ×2 (12:16→20:51)
[2023-05-10] MEDS: LORazepam 2 mg/mL INJ 1 mL IM ×2 (12:17→20:51)
[2023-05-10 14:00] VITALS: BP 100/66; PULSE 59; RESP 15; TEMP 36.5; O2SAT 97
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
[2023-05-10] MEDS: chlordiazePOXIDE 25 mg Capsule PO (15:25)
[2023-05-10] MEDS: naltrexone hcl 50 mg Tablet PO (15:25)
[2023-05-10] MEDS: nicotine 4 mg lozenge MUCOUS MEM (16:59)
[2023-05-10] MEDS: trazodone 50 mg Tablet PO (19:45)
[2023-05-10] MEDS: mirtazapine 30 mg Tablet PO (19:45)
--- NOTE | 2023-05-10 20:27 | PC.NURSE ---
Addendum entered and electronically signed by Libia Simms RN 05/10/23 22:30: AT 2049 PT CAME BACK TO NURSES STATION STATING MAN THAT STUFF DOESN'T WORK, JUST GIVE ME THE SHOT, I'M GETTING PISSED OFF. IF YOU GIVE ME THE SHOT I WILL SLEEP, THEN GET UP IN THE MORNING AND BE OK, THEN I WON'T ASK FOR ANOTHER SHOT I PROMISE. PT WAS GIVEN 5MG HALDOL WITH ATIVAN 2 MG TO THE LEFT DELTOID BY INGOT PASSER AND BENADRYL 50 MG IN RIGHT DELTOID BY THIS RN. PT RECEIVED INJECTIONS WITH EASE. PT APPEARED TO BE HAPPY GOT HIS SHOTS. PT THEN CAME TO DESK DEMANDING HE BE GIVEN MORE NICOTINE GUM BEFORE IT WAS TIME. PT WAS VERBALLY REDIRECTED AND EDUCATED THAT IT WOULD NOT BE TIME FOR MORE NICOTINE GUM FOR ONE HOUR. PT THEN STOMPED OFF TO ROOM AND LAID DOWN. PT HAS BEEN IN ROOM RESTING SINCE 2199. STAFF CONTINUES TO MONITOR CLOSELY. Original Note: PT SAW THIS RN COME IN FOR SHIFT CHANGE AND IMMEDIATELY STARTED TO YELL HEY YOU GIVE ME MY SHOT, I NEED THOSE FUCKING SHOT. PT WAS INFORMED THAT THIS RN HAD TO TAKE REPORT AND WE WOULD TALK IN A BIT. PT REDIRECTED MULTIPLE TIMES WITH LITTLE EFFECT. ONCE REPORT WAS FINISHED THIS RN WENT TO DAY ROOM TO SPEAK TO PT. PT CONTINUES TO INSIST HE GET THAT FUCKING SHOT, ITS THE ONLY THAT WORKS. THIS RN EDUCATED PT THAT THE ORDERED HIM NIGHT TIME MEDICATIONS AND THIS RN COULD START WITH THE REMERON 30 MG, TRAZODONE 50 MG AND SOME VISTARIL 50 MG FOR ANXIETY AND SLEEP. PT STATES HE WILL TAKE THEM AND TRY THEM TO SEE IF THEY HELP. THIS RN INFORMED PT THAT IF IT DID NOT WORK IN AN HOUR I WOULD ADMINISTER THE INJECTIONS IF IT WAS NEEDED. PT STATED, OK I CAN'T ARGUE WITH YOU I GUESS YOUR THE BOSS. PT INFORMED THAT WE ARE HERE TO GET HIM BETTER AND WE WILL DO WHAT WE NEED TO GET HIM BETTER. PT DID SCORE 16 ON CIWA. WILL RE EVALUATE PT IN AN HOUR AFTER PRN MEDICATION GIVEN. PT CONTINUES TO COME TO DESK AND ASK FOR SHOT. VERBALLY REDIRECTED.
[2023-05-10 21:52] VITALS: BP 107/72; PULSE 68; RESP 18; O2SAT 95
[2023-05-11 06:00] VITALS: BP 104/70; PULSE 56; RESP 16; O2SAT 93
[2023-05-11] MEDS: chlordiazePOXIDE 25 mg Capsule PO (09:12)
[2023-05-11] MEDS: folic acid 1 mg Tablet PO (09:12)
[2023-05-11] MEDS: pantoprazole DR 40 mg Tablet PO (09:12)
[2023-05-11] MEDS: thiamine 100 mg Tablet PO (09:12)
[2023-05-11] MEDS: naltrexone hcl 50 mg Tablet PO (09:13)
[2023-05-11] MEDS: multivitamin therapeutic Tablet 1 TAB PO (09:13)
[2023-05-11] MEDS: nicotine 4 mg lozenge MUCOUS MEM ×2 (09:14→19:49)
[2023-05-11] MEDS: nicotine 2 mg Gum BUCCAL ×3 (11:30→15:40)
[2023-05-11] MEDS: polyethylene glycol 3350 Pkt 17 gm PO ×2 (12:03→17:07)
[2023-05-11 12:40] VITALS: BP 93/60; PULSE 74; RESP 19; TEMP 36.6; O2SAT 97
--- NOTE | 2023-05-11 13:32 | P.NPUPN_ITS ---
Subjective NPU Subjective: Patient is a 47-year-old male with PTSD, and alcohol dependence admitted with depressed mood and a significant history of alcohol consumption alcohol-related withdrawal. The patient had requested Haldol and Ativan for agitation today and yesterday. He had shown no evidence of clear alcohol withdrawal symptoms. He had continued to report depression and acknowledged struggling with managing his alcohol use. He had reported PTSD symptoms along with depression still. Patient had stated that he was currently homeless. He reported some difficulties with falling asleep. He had reported no feelings of hopelessness. He had been somewhat isolative on the milieu. Mental Status Exam MSE Comments: This is a well-nourished well-developed white male lying in bed with a disheveled appearance and poor eye contact. He appeared in moderate distress. His gait was steady. There was no evidence of any abnormal involuntary motor movements or tremors appreciated. His speech was monotone and quality with normal volume and normal rate. His mood was described as okay. His affect was flat and mood incongruent. His thought processes linear logical and goal- directed. His thought content showed evidence of suicidal ideation with no active plan. He denied any homicidal ideation. He did not appear to be responding to internal stimuli. There was no clear evidence of delusional thinking. His attention span was fair. His recent and remote memory appeared grossly intact. His insight is poor. His judgment is limited. His impulse control is impaired. Vitals/I&O/Wt Last Vital Signs Temp 97.9 F 05/11/23 12:40 Pulse 74 05/11/23 12:40 Resp 19 H 05/11/23 12:40 BP 93/60 05/11/23 12:40 Pulse Ox 97 05/11/23 12:40 O2 Del Method Room Air 05/11/23 12:40 Weight last 48 hrs Weight 74.503 kg Data NPU 05/09/23 03:39 05/09/23 02:59 A&P Assessment and plan (1) MDD (major depressive disorder), recurrent episode: (2) RUBY (generalized anxiety disorder): (3) PTSD (post-traumatic stress disorder): (4) Alcohol dependence: (5) Opiate abuse, episodic: Plan 47-year-old white male with alcohol dependence and opiate abuse along with significant depression and anxiety admitted again within 48 hours after his recent discharge from the neuropsychiatric unit with suicidal ideation. He would likely benefit from acute inpatient hospitalization with medication adjustments at this time. ?1. Encourage individual, group and milieu therapy. ?2.Recommend sober living treatment at the highest level of care to which the patient is willing to commit. 3.Continue q-15 minute checks for safety.? 4. Continue librium 25mg daily, remeron 30mg at night, naltrexone 50mg daily and restart gabapentin at 300mg bid to target anxiety. Involuntary Hold Information 2 96 Hour Hold: 96 Hour Involuntary Admission: Yes 96 Hour Hold Ending Date: 05/16/23 96 Hour Hold Ending Time: 07:29 Attestations NPU Medical Necessity Statement*: Inpatient hospitalization is medically necessary and the clinically appropriate intervention at this time. His likely length of stay is 3-5 days. Coding Level of Care Code Acute Code for g Fwd Diagnoses MDD (major depressive disorder), recurrent episode F33.9 RUBY (generalized anxiety disorder) F41.1 PTSD (post-traumatic stress disorder) F43.10 Alcohol dependence F10.20 Opiate abuse, episodic F11.10
[2023-05-11] MEDS: haloperidol 5 mg Tablet PO (13:38)
[2023-05-11] MEDS: benztropine 1 mg Tablet PO (13:38)
[2023-05-11] MEDS: LORazepam 2 mg Tablet PO (13:38)
[2023-05-11] MEDS: gabapentin 300 mg Capsule PO (17:07)
[2023-05-11] MEDS: OLANZapine 5 mg ODT PO (19:48)
[2023-05-11] MEDS: mirtazapine 30 mg Tablet PO (19:48)
[2023-05-11 20:05] VITALS: BP 106/69; PULSE 110; RESP 16; TEMP 36.7; O2SAT 94
--- NOTE | 2023-05-11 20:08 | PC.NURSE ---
IN ROOM RESTING, RN IN TO DO ASSESSMENT. PT BECAME IMMEDIATELY AGITATED AND YELLING ABOUT GETTING A SHOT, I NEED MY ATIVAN AND HALDOL IN A DAMN SHOT AND YOU KNOW IT. PT EVEN SUGGESTED THIS RN GIVE HIM IT INTERVENOUSLLY. THIS RN INFORMED HIM THAT WE DO NOT GIVE MEDICATIONS IN THE PSYCH UNIT IV. PT WAS EDUCATED THAT HE MAY BE DISCHARGING TOMORROW THEREFORE HE NEEDS TO TAKE ALL MEDICATION BY MOUTH NOT INJECTION. PT WAS OFFERED PRN MEDICATIONS TO HELP WITH SLEEP AND ANXIETY. PT STATED THIS IS BULLSHIT JUST GIVE ME MY ATIVAN AND HALDOL THIS RN EDUCATED PT AGAIN THAT HE CAN HAVE ANXIETY MEDICATIONS BUT THIS RN WAS NOT GIVING HIM ATIVAN AND HE WAS RESTING IN NO DISTRESS PRIOR TO RN ENTERING ROOM. PT CONTINUED TO BE UPSET AND RESISTANT. PT DID COME TO THE NURSES STATION AND TAKE HIS REMERON 30 MG SCHEDULED AND ZYDIS 5 MG FOR INCREASED AGITATION. PT DENIES SI/HI AND AVH AT THIS TIME. DENIES PAIN. CIWA IS 2. SUPPORT VOICED AND EDUCATION ON ALL MEDICATIONS RECEIVED. PT DOES NOT VERBALIZE UNDERSTANDING, PT THREW CUP THROUGH THE WINDOW AND STATED IT DOESN'T FUCKING MATTER I'M NOT GONNA TAKE ANY MEDICATIONS THAT STUPID PUTS ME ON ANYWAY UNLESS ITS ATIVAN AND HALDOL AND THATS ALL THAT WORKS. RN ACKNOWLEDGED PT AND INFORMED HE THAT WAS HIS CHOICE BUT TO IMPROVE HIS MENTAL HEALTH HE WILL NEED TO TAKE HIS MEDICATIONS. PT WALKED OFF AND WENT TO ROOM UPSET.
--- NOTE | 2023-05-11 21:21 | PC.NURSE ---
ZYDIS 5 MG IS DEEMED EFFECTIVE, PT HAS BEEN RESTING IN BED FOR THE LAST HOUR IN NO DISTRESS.
[2023-05-12 06:00] VITALS: BP 93/69; PULSE 83; RESP 18; O2SAT 94
[2023-05-12] MEDS: nicotine 2 mg Gum BUCCAL ×4 (07:27→19:51)
[2023-05-12] MEDS: polyethylene glycol 3350 Pkt 17 gm PO ×2 (07:27→20:06)
[2023-05-12] MEDS: chlordiazePOXIDE 25 mg Capsule PO (07:27)
[2023-05-12] MEDS: pantoprazole DR 40 mg Tablet PO (07:28)
[2023-05-12] MEDS: thiamine 100 mg Tablet PO (07:28)
[2023-05-12] MEDS: naltrexone hcl 50 mg Tablet PO (07:28)
[2023-05-12] MEDS: gabapentin 300 mg Capsule PO ×2 (07:28→20:06)
[2023-05-12] MEDS: multivitamin therapeutic Tablet 1 TAB PO (07:28)
[2023-05-12] MEDS: folic acid 1 mg Tablet PO (07:28)
--- NOTE | 2023-05-12 07:40 | PC.NURSE ---
upset that he isn't getting Ativan with his morning meds this morning, explained to patient that he is on scheduled Librium to help with any withdraw symptoms
[2023-05-12] MEDS: nicotine 4 mg lozenge MUCOUS MEM ×2 (09:23→13:47)
[2023-05-12] MEDS: hyDROXYzine 25 mg Capsule 50 MG PO (13:40)
--- NOTE | 2023-05-12 13:40 | PC.NURSE ---
PRN VISTARIL 50 MG GIVEN PO PER PT C/O STATED ANXIETY
[2023-05-12 13:50] VITALS: BP 83/55; PULSE 96; RESP 16; O2SAT 97
[2023-05-12] MEDS: OLANZapine 5 mg ODT PO ×2 (14:27→20:05)
--- NOTE | 2023-05-12 14:46 | P.NPUPN_ITS ---
Subjective NPU Subjective: Patient is a 47-year-old male with PTSD, and alcohol dependence admitted with depressed mood and a significant history of alcohol consumption alcohol-related withdrawal. Patient had continue to request Ativan as he stated he was feeling uncomfortable despite this the patient had stated that he felt that he may be ready to go home. He did not wish to consider inpatient psychiatric treatment for addiction despite significant alcohol consumption. He reported no side effects from his medication regimen. He had continue to endorse some PTSD related symptoms and depression but stated that he was feeling ready to return home. Mental Status Exam MSE Comments: This is a well-nourished well-developed white male lying in bed with a disheveled appearance and fair eye contact. He appeared in moderate distress. His gait was steady. There was no evidence of any abnormal involuntary motor mo vements or tremors appreciated. His speech was monotone in quality with normal volume and normal rate. His mood was described as fine. His affect was flat and mood incongruent. His thought processes linear logical and goal-directed. His thought content showed evidence of suicidal ideation with no active plan. He denied any homicidal ideation. He did not appear to be responding to internal stimuli. There was no clear evidence of delusional thinking. His attention span was fair. His recent and remote memory appeared grossly intact. His insight is feeble. His judgment is limited. His impulse control is poor.. Vitals/I&O/Wt Last Vital Signs Temp 98.1 F 05/11/23 20:05 Pulse 96 05/12/23 13:50 Resp 16 05/12/23 13:50 BP 83/55 05/12/23 13:50 Pulse Ox 97 05/12/23 13:50 O2 Del Method Room Air 05/12/23 06:00 Weight last 48 hrs Weight 74.503 kg Data NPU 05/09/23 03:39 05/09/23 02:59 A&P Assessment and plan (1) MDD (major depressive disorder), recurrent episode: (2) RUBY (generalized anxiety disorder): (3) PTSD (post-traumatic stress disorder): (4) Alcohol dependence: (5) Opiate abuse, episodic: Plan 47-year-old white male with alcohol dependence and opiate abuse along with significant depression and anxiety admitted again within 48 hours after his recent discharge from the neuropsychiatric unit with suicidal ideation. He would likely benefit from acute inpatient hospitalization with medication adjustments at this time. ?1. Encourage individual, group and milieu therapy. Patient still has no clear disposition including appointment and concern was there after patient was readmitted within 24 hours of last discharge. ?2.Recommend sober living treatment at the highest level of care to which the patient is willing to commit. 3.Continue q-15 minute checks for safety.? 4. Continue librium 25mg daily, continue remeron 30mg at night, naltrexone 50mg daily and continue gabapentin at 300mg bid to target anxiety. Involuntary Hold Information 96 Hour Hold: 96 Hour Involuntary Admission: Yes 96 Hour Hold Ending Date: 05/16/23 96 Hour Hold Ending Time: 07:29 Attestations NPU Medical Necessity Statement*: Inpatient hospitalization is medically necessary and the clinically appropriate intervention at this time. His likely length of stay is 1-2 days. Coding Level of Care Code Acute Code for g Fwd Diagnoses MDD (major depressive disorder), recurrent episode F33.9 RUBY (generalized anxiety disorder) F41.1 PTSD (post-traumatic stress disorder) F43.10 Alcohol dependence F10.20 Opiate abuse, episodic F11.10
[2023-05-12] MEDS: haloperidol 5 mg Tablet PO (18:13)
[2023-05-12] MEDS: mirtazapine 30 mg Tablet PO (20:06)
[2023-05-12 20:15] VITALS: BP 91/54; PULSE 80; RESP 17; O2SAT 97
--- NOTE | 2023-05-13 05:35 | PC.NURSE ---
Pt came up to nurses station requesting coffee, explained that coffee wasn't available until 0600. Pt then became agitated slamming his cup down on the counter, returning to his room and slamming his door shut. Pt stated always fucking rules aren't there . Explained to pt again that the door must remained cracked. One on one care and redirection provided w/minimal effect. Monitoring continues.
[2023-05-13 06:00] VITALS: BP 93/63; PULSE 62; RESP 18; O2SAT 95
[2023-05-13] MEDS: nicotine 4 mg lozenge MUCOUS MEM ×3 (06:51→11:43)
[2023-05-13] MEDS: multivitamin therapeutic Tablet 1 TAB PO (08:04)
[2023-05-13] MEDS: gabapentin 300 mg Capsule PO (08:04)
[2023-05-13] MEDS: chlordiazePOXIDE 25 mg Capsule PO (08:04)
[2023-05-13] MEDS: folic acid 1 mg Tablet PO (08:04)
[2023-05-13] MEDS: pantoprazole DR 40 mg Tablet PO (08:04)
[2023-05-13] MEDS: thiamine 100 mg Tablet PO (08:04)
[2023-05-13] MEDS: naltrexone hcl 50 mg Tablet PO (08:04)
--- NOTE | 2023-05-13 09:54 | PC.NURSE ---
refused scheduled miralax this morning
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
[2023-05-13 12:42] VITALS: BP 93/63; PULSE 62; RESP 18; O2SAT 95
== END 2023-05-13 14:14 | disposition home or self-care (01) | DRG 885 ==
LOC: ER 07:18 → ER IP 11:46 → NP 15:54
PROVIDERS: Nurse Practitioner Family; Admitting Provider Psychiatry & Neurology Psychiatry; Emergency Provider Family Medicine; Visit Provider Psychiatry & Neurology Psychiatry
DX: F33.9 Major depressive disorder, recurrent, unspecified (principal); R45.851 Suicidal ideations; Z59.00 Homelessness unspecified; F41.1 Generalized anxiety disorder; Z62.811 Personal history of psychological abuse in childhood; F10.20 Alcohol dependence, uncomplicated; F11.10 Opioid abuse, uncomplicated; F17.210 Nicotine dependence, cigarettes, uncomplicated
CPT/HCPCS: 36415; 80053; 80306; 80307; 81003; 84443; 85025; 96372; 97165; 99238; 99285; J1200; J1630; J2060

== ENCOUNTER 2023-05-17 10:11 | Emergency (ER) | payer MEDICAID, SELFPAY ==
[2023-05-17 10:17] VITALS: BP 122/86; PULSE 91; RESP 18; TEMP 36.7; O2SAT 98; BMI 23.6
--- NOTE | 2023-05-17 10:29 | ECG_ITS ---
[facility] Test Date: 2023-05-17 Pat Name: Hector Hunter Department: Room: Gender: Male [employer]: : 1975 Requested By: Jose Ramon Koroma Order Number: [id number] Jeremy MD: Billy Castano M.D. Measurements Intervals [place] Rate: 83 P: 59 OR: 167 QRS: 37 QRSD: 96 T: 73 QT: 350 QTc: 412 Interpretive Statements SINUS RHYTHM Compared to ECG 05/08/2023 10:08:53 No significant changes Electronically Signed On 05-17-2023 13:58:55 CDT by Billy Castano M.D. [id number]
--- NOTE | 2023-05-17 10:31 | ED.C_ITS ---
HPI - Psych General: Chief Complaint: Psychiatric Symptoms Stated Complaint: PSYCH EVAL; ETOH Time Seen by Provider: 05/17/23 10:12 Source: patient Mode of arrival: EMS History of Present Illness: 47-year-old male returns to the emergency room states he has not eaten for the last couple days nausea and vomiting. He drank this morning. He denies any homicidal or suicidal ideations. He is a chronic alcoholic and has been admi tted times often leaves AGAINST MEDICAL ADVICE. The last time he was here he had been given chlordiazepoxide left the ER and took the entire prescription. He returned and we had recommended admission he left AMA he returned after that was seen with complaints of vomiting blood left AMA again then finally returned shortly after midnight for the fourth time in a 24-hour period and was admitted to psychiatry unit. He was there for 4 days and discharged home on May 13 with chlordiazepoxide. He was also sent home with gabapentin and mirtazapine. He last drank at around 6 AM this morning says he drank about a half a pint he feels like he is withdrawing from alcohol. Denies suicidal homicidal ideation but wants a mental health evaluation because of his alcohol use. He is not tachycardic nor is he having any tremors on arrival. Review of Systems Const: Denies: fever(s), chills, body aches, change in appetite, fatigue or malaise ENMT: Denies: throat pain, ear or mastoid pain, nasal discharge or nasal congestion Card: Denies: chest pain, edema, dyspnea on exertion or orthopnea Resp: Denies: dyspnea, productive cough or non-productive cough GI: Denies: abdominal pain, nausea, vomiting, hematemesis, coffee ground emesis, diarrhea, constipation, bloating, hematochezia or melena : Denies: flank pain, dysuria, urinary frequency or urinary urgency Skin/Breast: Denies: rash or pruritus PFSH ED PFSH: Medical History Alcohol use disorder Depressive disorder Polysubstance abuse Psychiatric care Social History Smoking and tobacco status: current every day smoker Alcohol intake: current Alcohol intake frequency: 3 or more drinks per day Alcohol type: hard liquor Desire information about alcohol rehabilitation?: Yes Counseling given: Yes Physical Exam Const: GENERAL APPEARANCE: cooperative and comfortable ORIENTATION/CONSCIOUSNESS: Yes awake, Yes oriented to person, Yes oriented to place and Yes oriented to time HENMT: COMMON NORMALS: normocephalic, atraumatic and hearing grossly normal bilaterally HEAD & SCALP: normocephalic and atraumatic Resp: COMMON NORMALS: normal respiratory effort, No retractions, No use of accessory muscles and clear to auscultation bilaterally AUSCULTATION: clear to auscultation bilaterally Cardio: COMMON NORMALS: regular rate, regular rhythm and No murmurs present (Cardio) RATE: regular rate RHYTHM: regular rhythm GI: COMMON NORMALS: Soft to palpation and No hepatosplenomegaly present AUSCULTATION: Yes normoactive bowel sounds PALPATION: Yes Soft to palpation, No Tenderness to palpation present (GI), No Guarding due to palpation present (GI) and Yes No hepatosplenomegaly present Extremity: COMMON NORMALS: normal to inspection, capillary refill normal, no clubbing, cyanosis or edema, no calf tenderness and no pedal edema Neuro: SENSORIUM/ORIENTATION: Yes oriented to person, Yes oriented to place and Yes oriented to time Skin: COMMON NORMALS: no rashes or lesions noted GENERAL SKIN EXAM: no rashes or lesions noted Course Vital Signs: Vital signs: Vital Signs Temperature 98.0 F 05/17/23 12:20 Pulse Rate 91 05/17/23 12:20 Respiratory Rate 18 05/17/23 12:20 Blood Pressure 122/86 05/17/23 12:20 Pulse Oximetry 98 05/17/23 12:20 [facility] - Psych Medical Decision Making Despite his rather high level of blood alcohol patient is still very conversant and interactive and able to hold a conversation which is typical for him. He is not having any physical signs of withdrawal. He is not homicidal or suicidal. He has frequently come to the ER intoxicated and vaguely stating he wants help but he has been admitted on occasion most times he is left AGAINST MEDICAL ADVICE and then returned later. As stated in the HPI this 4 times in 1 day once before being admitted on a 96-hour hold has been discharged home several times medications to assist with abstinence from alcohol and is frequently taken all of them at once or does not use them properly in another way. Discussed with Dr. Hagan he does not feel that will benefit the patient to admit at this time suggest discharge. Recommend patient that he continue to follow-up and seek care from an outpatient program such as [facility]. Medical Records I reviewed the patient's medical records. Lab Data I reviewed the patient's lab results. 05/17/23 11:09 05/17/23 11:09 Laboratory Results WBC 7.70 10^3/uL (3.29-11.43) 05/17/23 11:09 RBC 4.40 10^6/uL (3.85-5.65) 05/17/23 11:09 Hgb 13.10 g/dL (11.27-16.99) 05/17/23 11:09 Hct 40.1 % (37-53) 05/17/23 11:09 MCV 91.1 fl (82-101) 05/17/23 11:09 MCH 29.8 pg (27-33) 05/17/23 11:09 MCHC 32.7 g/dL (30-55) 05/17/23 11:09 RDW 14.9 % (12.1-15.1) 05/17/23 11:09 Plt Count 465 10^3/cmm (157-399) H 05/17/23 11:09 MPV 9.0 fL (7.4-10.4) 05/17/23 11:09 Neut % (Auto) 52.4 % 05/17/23 11:09 Lymph % (Auto) 20.5 % 05/17/23 11:09 [place] % (Auto) 4.8 % 05/17/23 11:09 Eos % (Auto) 19.5 % 05/17/23 11:09 Baso % (Auto) 2.2 % 05/17/23 11:09 Neut # (Auto) 4.03 10^3/uL (1.8-7.7) 05/17/23 11:09 Lymph # (Auto) 1.6 10^3/uL (0.8-4.8) 05/17/23 11:09 [place] # (Auto) 0.4 10^3/uL (0.2-0.9) 05/17/23 11:09 Eos # (Auto) 1.5 10^3/uL (0.0-0.8) H 05/17/23 11:09 Baso # (Auto) 0.2 10^3/uL (0.0-0.1) H 05/17/23 11:09 Nucleated RBC % (auto) 0 % 05/17/23 11:09 Nucleated RBCs # 0.0 /100WBC 05/17/23 11:09 Sodium 145 mmol/L (136-145) 05/17/23 11:09 Potassium 4.6 mmol/L (3.5-5.1) 05/17/23 11:09 Chloride 107 mmol/L (98-107) 05/17/23 11:09 Carbon Dioxide 28 mmol/L (22-29) 05/17/23 11:09 Anion Gap 14.6 (5-19) 05/17/23 11:09 BUN 15 mg/dL (6-20) 05/17/23 11:09 Creatinine 0.7 mg/dL (0.7-1.2) 05/17/23 11:09 GFR Calculation 120.4 mL/min (90-130) 05/17/23 11:09 Glucose 95 mg/dL (65-115) 05/17/23 11:09 Calculated Osmolality 301 mOsm/kg (285-295) H 05/17/23 11:09 Calcium 8.8 mg/dL (8.5-10.5) 05/17/23 11:09 Total Bilirubin 0.2 mg/dL (0.15-1.2) 05/17/23 11:09 AST 26 U/L (0-40) 05/17/23 11:09 ALT 22 U/L (0-41) 05/17/23 11:09 Alkaline Phosphatase 85 U/L (40-130) 05/17/23 11:09 Total Protein 7.0 g/dL (6.6-8.7) 05/17/23 11:09 Albumin 4.2 g/dL (3.5-5.2) 05/17/23 11:09 Globulin 2.8 g/dL (1.3-4.6) 05/17/23 11:09 Ethyl Alcohol 265 mg/dL (0-10) H 05/17/23 11:09 Discharge Plan Discharge Patient Disposition: Home Clinical Impression: Alcohol intoxication, Alcohol dependence Condition: Stable Prescriptions: No Action thiamine mononitrate (vit B1) [Vitamin B-1 (mononitrate)] 100 mg Tablet 100 mg PO DAILY 15 Days Qty: 15 1RF naltrexone 50 mg Tablet 50 mg PO DAILY 15 Days Qty: 15 2RF mirtazapine 30 mg Tablet 30 mg PO BEDTIME 15 Days Qty: 15 2RF gabapentin 300 mg Capsule 300 mg PO 0900,2100 15 Days Qty: 30 2RF chlordiazepoxide HCl 25 mg capsule 25 mg PO DAILY Qty: 4 0RF Rx Instructions: take one tablet daily x 4 days then discontinue. hydroxyzine pamoate 50 mg capsule 50 mg PO QID PRN (Reason: Anxiety) pantoprazole 40 mg tablet,delayed release (DR/EC) 40 mg PO BID Vitamin Plus Low Iron 27 mg iron- 1 mg tablet 1 tab PO DAILY mirtazapine 30 mg Tablet 30 mg PO BEDTIME 30 Days Qty: 30 1RF naltrexone 50 mg tablet 50 mg PO DAILY 30 Days Qty: 30 1RF Discharge Orders: Discharge ED (Routine); Ordered 05/17/23 Ordered By: Jose Ramon Bhat Discharge Diet: Usual diet Discharge Activity: Increase activity as tolerated Patient Instructions: Alcohol Intoxication (ED), Abuse of Alcohol (ED), Alcohol Use Disorder (ED), Opioid Safety, Pain Management Activity Restrictions/Additional Instructions: Abstain from alcohol Coding Level of Care Code ED Trial Judge for Abisai Fermin
--- NOTE | 2023-05-17 11:14 | PC.PHAR ---
USED PT EXTERNAL MED LIST. UNABLE TO CONFIRM PT RECEIVED MEDICATIONS ON 05/13 DUE TO PHARMACY BEING CLOSED. USED BEST CURRENT AND PREVIOUS NOTES.
[2023-05-17 11:19] LABS: Basophils # 0.2 10^3/uL (0.0-0.1); Basophils % 2.2 %; Eosinophils # 1.5 10^3/uL (0.0-0.8); Eosinophils % 19.5 %; Hematocrit 40.1 % (37-53); Lymphocytes # 1.6 10^3/uL (0.8-4.8); Lymphocytes % 20.5 %; Mean Corpuscular HGB Conc 32.7 g/dL (30-55); Mean Corpuscular Hemoglobin 29.8 pg (27-33); Mean Corpuscular Volume 91.1 fl (82-101); Monocytes # 0.4 10^3/uL (0.2-0.9); Monocytes % 4.8 %; Neutrophils # 4.03 10^3/uL (1.8-7.7); Neutrophils % 52.4 %; Nucleated Red Blood Cells % 0 %; Platelet Count 465 10^3/cmm (157-399); Red Cell Distribution Width 14.9 % (12.1-15.1)
[2023-05-17 11:39] LABS: Alanine Aminotransferase 22 U/L (0-41); Albumin Level 4.2 g/dL (3.5-5.2); Alcohol Level 265 mg/dL (0-10); Alkaline Phosphatase 85 U/L (40-130); Anion Gap 14.6 (5-19); Aspartate Amino Transferase 26 U/L (0-40); Blood Urea Nitrogen 15 mg/dL (6-20); Calcium 8.8 mg/dL (8.5-10.5); Carbon Dioxide 28 mmol/L (22-29); Chloride 107 mmol/L (98-107); Globulin 2.8 g/dL (1.3-4.6); Glomerular Filtration Rate 120.4 mL/min (90-130); Glucose 95 mg/dL (65-115); Osmolality Calculated 301 mOsm/kg (285-295); Potassium 4.6 mmol/L (3.5-5.1); Sodium 145 mmol/L (136-145); Total Bilirubin 0.2 mg/dL (0.15-1.2)
[2023-05-17 12:20] VITALS: BP 122/86; PULSE 91; RESP 18; TEMP 36.7; O2SAT 98
== END 2023-05-17 12:21 | disposition home or self-care (01) ==
PROVIDERS: Emergency Provider Family Medicine
DX: F10.229 Alcohol dependence with intoxication, unspecified (principal); Y90.8 Blood alcohol level of 240 mg/100 ml or more; F17.210 Nicotine dependence, cigarettes, uncomplicated
CPT/HCPCS: 36415; 80053; 80307; 85025; 93005; 99284

== ENCOUNTER 2023-05-17 21:14 | Emergency (ER) | payer MEDICAID, SELFPAY ==
[2023-05-17 21:15] VITALS: BP 131/86; PULSE 91; RESP 18; TEMP 36.8; O2SAT 94; BMI 24.3
--- NOTE | 2023-05-17 21:20 | W.ED.ALCOHOL ---
HPI - Alcohol General: Chief Complaint: Alcohol Stated Complaint: ETOH Time Seen by Provider: 05/17/23 21:18 History of Present Illness: 47-year-old male brought in by police. Police state that he was referred to a sober living facility. He went there multiple times today and they do not do check-in's on the weekends. Ultimately he had to be trespassed from that location. He went to a [employer]. He told the workers he was hungry. They gave him money for pizza. Instead, he used the money for vodka. He then drank all of the vodka and passed out on their property. They called police. Police arrested him for drunk in public. However, he blew a 0.320 alcohol level. Police brought him in reporting that he is to trunk to be put in [facility] at this time. Patient was seen earlier today in this emergency department and multiple times recently. Note from earlier today: 47-year-old male returns to the emergency room states he has not eaten for the last couple days nausea and vomiting.? He drank this morning.? He denies any homicidal or suicidal ideations.? He is a chronic alcoholic and has been admitted times often leaves AGAINST MEDICAL ADVICE.? The last time he was here he had been given chlordiazepoxide left the ER and took the entire prescription.? He returned and we had recommended admission he left AMA he returned after that was seen with complaints of vomiting blood left AMA again then finally returned shortly after midnight for the fourth time in a 24-hour period and was admitted to psychiatry unit.? He was there for 4 days and discharged home on May 13 with chlordiazepoxide.? He was also sent home with gabapentin and mirtazapine.? He last drank at around 6 AM this morning says he drank about a half a pint he feels like he is withdrawing from alcohol.? Denies suicidal homicidal ideation but wants a mental health evaluation because of his alcohol use.? He is not tachycardic nor is he having any tremors on arrival. Review of Systems Narrative: History is limited due to the patient's intoxication. However, patient states he does not take any of his medications. He states he does not have any medical concerns today. He states he is embarrassed about what he did. Denies any pain. PFSH ED PFSH: Medical History Alcohol use disorder Depressive disorder Polysubstance abuse Psychiatric care Social History Smoking and tobacco status: current every day smoker Alcohol intake: current Alcohol intake frequency: 3 or more drinks per day Alcohol type: hard liquor Desire information about alcohol rehabilitation?: Yes Counseling given: Yes Physical Exam Narrative: EXAM NARRATIVE: Patient is able to stand and walk on his own. His speech is slightly slurred. His conjunctiva are injected. His radial pulses 2+. No jaundice. No signs of trauma. Const: COMMON NORMALS: alert and well nourished HENMT: COMMON NORMALS: normocephalic, atraumatic and external ears normal HEAD & SCALP: normocephalic and atraumatic EXTERNAL EAR: Yes external ears normal MOUTH: no muffled voice Neck/C-Spine: COMMON NORMALS: no JVD GENERAL: Yes normal visual inspection and Yes trachea midline Resp: COMMON NORMALS: normal respiratory effort, No use of accessory muscles and clear to auscultation bilaterally AUSCULTATION: clear to auscultation bilaterally Cardio: COMMON NORMALS: no JVD, regular rate and regular rhythm RATE: regular rate RHYTHM: regular rhythm GI: COMMON NORMALS: Soft to palpation and non-tender PALPATION: Yes Soft to palpation and No Guarding due to palpation present (GI) Extremity: COMMON NORMALS: normal to inspection Neuro: COMMON NORMALS: moves all extremities, no focal motor deficits and no sensory deficits noted SENSORIUM/ORIENTATION: Yes alert Psych: COMMON NORMALS: mental status grossly normal, Normal thought process present, cooperative and normal affect THOUGHT PROCESS: Normal thought process present Skin: COMMON NORMALS: no rashes or lesions noted, turgor normal and no jaundice GENERAL SKIN EXAM: no rashes or lesions noted and turgor normal Course Vital Signs: Vital signs: Vital Signs Temperature 98.2 F 05/17/23 21:15 Pulse Rate 91 05/17/23 21:15 Respiratory Rate 18 05/17/23 21:15 Blood Pressure 131/86 05/17/23 21:15 Pulse Oximetry 94 05/17/23 21:15 Oxygen Delivery Me thod Room Air 05/17/23 21:15 [facility] - Alcohol Medical Decision Making Acute alcohol intoxication in the setting of chronic alcohol abuse and intoxication with a long history of noncompliance. Patient will be monitored in the emergency department for a few hours. Police state they would like his alcohol level to be in the mid 200s before they book him. Patient has a history of overdose on chlordiazepoxide in the past. It looks like he has been tried on naltrexone and other medications but has been noncompliant. He has recently been admitted to the psych unit as noted above. Ultimately the plan is to monitor him make sure he is stable, then discharge. Update Patient intermittently getting agitated. Plan to place patient on a temporary hold for lack of decision-making capacity due to significant intoxication. Patient will be given Geodon 20 mg IM. He will be placed on a continuous pulse oximeter. This way we can provide anxiolysis while allowing him to sober up. Update Patient signed out at end of shift. Plan is to have him rest and metabolize his alcohol. As soon as he is clinically sober, he may be discharged unless a new medical concern arises. Discharge Plan Discharge Patient Disposition: Home Clinical Impression: Alcohol intoxication, Alcohol dependence Condition: Stable Prescriptions: Continued thiamine mononitrate (vit B1) [Vitamin B-1 (mononitrate)] 100 mg Tablet 100 mg PO DAILY 15 Days Qty: 15 1RF mirtazapine 30 mg Tablet 30 mg PO BEDTIME 15 Days Qty: 15 2RF gabapentin 300 mg Capsule 300 mg PO 0900,2100 15 Days Qty: 30 2RF hydroxyzine pamoate 50 mg capsule 50 mg PO QID PRN (Reason: Anxiety) pantoprazole 40 mg tablet,delayed release (DR/EC) 40 mg PO BID Vitamin Plus Low Iron 27 mg iron- 1 mg tablet 1 tab PO DAILY Discontinued naltrexone 50 mg Tablet 50 mg PO DAILY 15 Days Qty: 15 2RF chlordiazepoxide HCl 25 mg capsule 25 mg PO DAILY Qty: 4 0RF Rx Instructions: take one tablet daily x 4 days then discontinue. naltrexone 50 mg tablet 50 mg PO DAILY 30 Days Qty: 30 1RF No Action mirtazapine 30 mg Tablet 30 mg PO BEDTIME 30 Days Qty: 30 1RF Discharge Orders: Discharge ED (Routine); Ordered 05/18/23 Ordered By: Torey Kumar Discharge Diet: Regular Discharge Activity: Resume usual activity Patient Instructions: Alcohol Intoxication (ED), Abuse of Alcohol (ED) Coding Level of Care Code ED Service Station Operator for Abisai Fermin
[2023-05-17] MEDS: water for injection-sterile 10 ML 1.2 ML (22:35)
[2023-05-17] MEDS: ziprasidone 20 mg/mL SDV IM (22:36)
== END 2023-05-18 07:46 | disposition home or self-care (01) ==
PROVIDERS: Emergency Provider Emergency Medicine
DX: F10.220 Alcohol dependence with intoxication, uncomplicated (principal)
CPT/HCPCS: 96372; 99284; J3486

== ENCOUNTER 2024-05-23 19:03 | Emergency (ER) | payer OTHER, MEDICAID, SELFPAY ==
[2024-05-23 19:16] VITALS: BP 128/77; PULSE 73; RESP 17; TEMP 36.6; O2SAT 100; BMI 24.3
[2024-05-23 19:30] VITALS: BP 123/75; PULSE 67; O2SAT 100
--- NOTE | 2024-05-23 19:50 | CTR_ITS ---
PROCEDURE INFORMATION: Exam: CT Pelvis With Contrast Exam date and time: 05/23/2024 8:13 PM Age: 48 years old Clinical indication: Patient HX: C/O draining perirectal abscess. ; Additional info: Perirecal abscess TECHNIQUE: Imaging protocol: Computed tomography of the pelvis with contrast. Radiation optimization: All CT scans at this facility use at least one of these dose optimization techniques: automated exposure control; mA and/or kV adjustment per patient size (includes targeted exams where dose is matched to clinical indication); or iterative reconstruction. Contrast material: OMNI 350; Contrast volume: 100 ml; Contrast route: INTRAVENOUS (IV); COMPARISON: No relevant prior studies available. RADIATION DOSE METRICS: Total DLP (mGy-cm): 382.97 FINDINGS: Intestine: Partial sigmoidectomy with primary anastomosis in the left hemipelvis. No evidence of bowel obstruction within the field of view. Appendix: No evidence of appendicitis. Intraperitoneal space: Unremarkable. No free air. No significant fluid collection. Lymph nodes: Unremarkable. No enlarged lymph nodes. Reproductive: The prostate is mildly enlarged. Urinary bladder: Normal. No mass. Bones/joints: Moderate degenerative changes at L5-S1. No acute fracture. Soft tissues: Ill-defined fat stranding extending from the posterior aspect of the anus into the subcutaneous soft tissues along the left intergluteal cleft. There appears to be a small, ill-defined fluid collection within this area of fat stranding which measures approximately 1.2 x 1.1 cm in axial dimensions (series 3, image 50). CT/CT pelvis w con* [id number] IMPRESSION: 1. Findings compatible with a small left perianal abscess with phlegmon. No drainable fluid collection visualized at this time. 2. Partial sigmoidectomy with primary anastomosis in the left hemipelvis. 3. Mild prostatomegaly. Correlate with PSA levels.
--- NOTE | 2024-05-23 19:51 | W.ED.SKABFB ---
HPI - Skin/Abscess/Foreign Bdy General: Chief complaint: Skin/Abscess/Foreign Body Stated complaint: Boil on Butt Time Seen by Provider: 05/23/24 19:25 History of Present Illness: 48-year-old male patient here with 3 days of left-sided perirectal pain, with some drainage. He has a tender swollen area there. He denies fever. He put prid On it as an outpatient, and it drained some degree, but does not seem to be going away. No vomiting Related Data Home Medications Medication Instructions Recorded Confirmed hydroxyzine pamoate 50 mg capsule 50 mg PO QID PRN Anxiety 04/22/23 05/17/23 pantoprazole 40 mg tablet,delayed 40 mg PO BID 04/22/23 05/17/23 release vitamin with calcium 1 tab PO DAILY 04/22/23 05/17/23 no.72-iron 27 mg-folic acid 1 mg tablet ( Vitamins Plus Low Iron) Previous Rx's Medication Instructions Recorded mirtazapine 30 mg tablet 30 mg PO BEDTIME 30 days #30 tabs 05/07/23 gabapentin 300 mg capsule 300 mg PO 0900,2100 15 days #30 05/13/23 caps mirtazapine 30 mg tablet 30 mg PO BEDTIME 15 days #15 tabs 05/13/23 thiamine mononitrate (vit B1) 100 100 mg PO DAILY 15 days #15 tabs 05/13/23 mg tablet (Vitamin B-1 (mononitrate)) clindamycin HCl 300 mg capsule 300 mg PO Q6H 10 days #40 caps 05/23/24 ketorolac 10 mg tablet 10 mg PO TID PRN pain #10 tabs 05/23/24 Allergies Allergy/AdvReac Type Severity Reaction Status Date / Time amoxicillin Allergy ALGY-Rash Verified 05/23/24 19:22 ampicillin Allergy Unknown Verified 05/23/24 19:22 [facility] ED PFSH: Medical History Psychiatric care Polysubstance abuse Alcohol use disorder Depressive disorder Social History Smoking and tobacco/nicotine status: current every day tobacco/nicotine user Alcohol intake: current Alcohol intake frequency: 3 or more drinks per day Alcohol type: hard liquor Physical Exam Const: COMMON NORMALS: no acute distress GENERAL APPEARANCE: cooperative; not ill appearing and not frail appearing HENMT: COMMON NORMALS: normocephalic, atraumatic and Normal external nose present HEAD & SCALP: normocephalic and atraumatic FACE & SINUS: normal facial exam and face symmetric NOSE: Normal external nose present Eye: COMMON NORMALS: Equal, round and reactive pupils present and EOMs intact bilaterally PUPIL: Yes Equal, round and reactive pupils present Neck/C-Spine: GENERAL: Yes trachea midline Chest: CHEST: Yes Symmetrical chest wall rise Resp: COMMON NORMALS: normal respiratory effort, No retractions, No use of accessory muscles and clear to auscultation bilaterally AUSCULTATION: clear to auscultation bilaterally Cardio: COMMON NORMALS: regular rate and regular rhythm RATE: regular rate RHYTHM: regular rhythm GI: COMMON NORMALS: Normal to inspection, nondistended, normoactive bowel sounds present Extremity: COMMON NORMALS: no pedal edema Neuro: [place] COMA SCALE: document GCS findings [place] coma scale eye opening: Spontaneous [place] coma scale verbal response: Orientated [place] coma scale motor response: Obey commands [place] coma scale total score: 15 SENSORY EXAM: Yes extremities (intact) Psych: COMMON NORMALS: speech normal SPEECH: Yes normal speech Skin: NARRATIVE SKIN EXAM: Examination reveals tenderness and induration, about 4 cm, in the perirectal region at about 9:00. Minimal drainage. No streaking. Some fluctuance noted. Procedures Abscess I/D Site: dona-rectal Side (if applicable): left Sedation/analgesia: fentanyl Local Anesthetic: lidocaine 1% Amount of anesthesia used (mL): 7 Technique: incised with #11 blade Amount of fluid expressed (mL): 7 Irrigation: No Packing used?: plain Complications: other (none) Course Vital Signs: Vital signs: Vital Signs Temperature 98 F 05/23/24 19:16 Pulse Rate 79 05/23/24 22:39 Respiratory Rate 16 05/23/24 22:08 Blood Pressure 116/74 05/23/24 22:39 Pulse Oximetry 99 05/23/24 22:39 Oxygen Delivery Me thod Room Air 05/23/24 22:30 MDM - Skin/Abscess/Foreign Bdy Medicial Decision Making CT ordered and laboratory given perirectal nature. Laboratory is normal. CT shows a small left perianal abscess with phlegmon. No deep tissue infection. Incised and drained small amount of purulent material and old blood. Packed. Antibiotics. He received IV clindamycin here. Will continue. Outpatient follow-up. Return for worsening symptoms. Lab Data 05/23/24 20:10 05/23/24 20:[address] 05/23/24 19:50 IMPRESSION: 1. Findings compatible with a small left perianal abscess with phlegmon. No drainable fluid collection visualized at this time. 2. Partial sigmoidectomy with primary anastomosis in the left hemipelvis. 3. Mild prostatomegaly. Correlate with PSA levels. Laboratory Results WBC 10.04 10^3/uL (3.29-11.43) 05/23/24 20:10 RBC 4.41 10^6/uL (3.85-5.65) 05/23/24 20:10 Hgb 12.80 g/dL (11.27-16.99) 05/23/24 20:10 Hct 39.8 % (37-53) 05/23/24 20:10 MCV 90.2 fl (82-101) 05/23/24 20:10 MCH 29.0 pg (27-33) 05/23/24 20:10 MCHC 32.2 g/dL (30-55) 05/23/24 20:10 RDW 14.9 % (12.1-15.1) 05/23/24 20:10 Plt Count 329 10^3/cmm (157-399) 05/23/24 20:10 MPV 9.4 fL (7.4-10.4) 05/23/24 20:10 Neut % (Auto) 75.3 % 05/23/24 20:10 Lymph % (Auto) 15.1 % 05/23/24 20:10 [place] % (Auto) 6.3 % 05/23/24 20:10 Eos % (Auto) 2.5 % 05/23/24 20:10 Baso % (Auto) 0.6 % 05/23/24 20:10 Neut # (Auto) 7.56 10^3/uL (1.8-7.7) 05/23/24 20:10 Lymph # (Auto) 1.5 10^3/uL (0.8-4.8) 05/23/24 20:10 [place] # (Auto) 0.6 10^3/uL (0.2-0.9) 05/23/24 20:10 Eos # (Auto) 0.3 10^3/uL (0.0-0.8) 05/23/24 20:10 Baso # (Auto) 0.1 10^3/uL (0.0-0.1) 05/23/24 20:10 Nucleated RBC % (auto) 0 % 05/23/24 20:10 Nucleated RBCs # 0.0 /100WBC 05/23/24 20:10 ESR 12 mm/hr (0-10) H 05/23/24 20:10 Sodium 137 mmol/L (136-145) 05/23/24 20:10 Potassium 4.1 mmol/L (3.5-5.1) 05/23/24 20:10 Chloride 102 mmol/L (98-107) 05/23/24 20:10 Carbon Dioxide 24 mmol/L (22-29) 05/23/24 20:10 Anion Gap 15.1 (5-19) 05/23/24 20:10 BUN 18 mg/dL (6-20) 05/23/24 20:10 Creatinine 0.8 mg/dL (0.7-1.2) 05/23/24 20:10 GFR Calculation 102.7 mL/min (90-130) 05/23/24 20:10 Glucose 88 mg/dL (65-115) 05/23/24 20:10 Calculated Osmolality 285 mOsm/kg (285-295) 05/23/24 20:10 Calcium 8.8 mg/dL (8.5-10.5) 05/23/24 20:10 Total Bilirubin 0.3 mg/dL (0.15-1.2) 05/23/24 20:10 AST 16 U/L (0-40) 05/23/24 20:10 ALT 14 U/L (0-41) 05/23/24 20:10 Alkaline Phosphatase 88 U/L (40-130) 05/23/24 20:10 C-Reactive Protein 7.6 mg/L (0.0-4.9) H 05/23/24 20:10 Total Protein 7.2 g/dL (6.6-8.7) 05/23/24 20:10 Albumin 4.4 g/dL (3.5-5.2) 05/23/24 20:10 Globulin 2.8 g/dL (1.3-4.6) 05/23/24 20:10 All radiology interpretation(s) finalized by discharge Discharge Plan Discharge Patient Disposition: Home Clinical Impression: Abscess and cellulitis of gluteal region Condition: Stable Prescriptions: New clindamycin HCl 300 mg capsule 300 mg PO Q6H 10 Days Qty: 40 0RF ketorolac 10 mg tablet 10 mg PO TID PRN (Reason: pain) Qty: 10 0RF No Action thiamine mononitrate (vit B1) [Vitamin B-1 (mononitrate)] 100 mg Tablet 100 mg PO DAILY 15 Days Qty: 15 1RF mirtazapine 30 mg Tablet 30 mg PO BEDTIME 15 Days Qty: 15 2RF gabapentin 300 mg Capsule 300 mg PO 0900,2100 15 Days Qty: 30 2RF hydroxyzine pamoate 50 mg capsule 50 mg PO QID PRN (Reason: Anxiety) pantoprazole 40 mg tablet,delayed release (DR/EC) 40 mg PO BID Vitamin Plus Low Iron 27 mg iron- 1 mg tablet 1 tab PO DAILY mirtazapine 30 mg Tablet 30 mg PO BEDTIME 30 Days Qty: 30 1RF Discharge Orders: Discharge ED (Routine); Ordered 05/23/24 Ordered By: Torey Kumar Patient Instructions: Abscess (ED), Opioid Safety, Pain Management Activity Restrictions/Additional Instructions: Pull packing in 2 days if packing is not already out at that point. Antibiotics as directed. Medication as needed for pain. You may ice the area which can help with pain and swelling as well. Keep dry for 24 hours, then you may wash with soap and running water. Do not soak. See your doctor next week for a wound check. Coding Level of Care Code ED Motor Power Connector for Abisai Fermin
[2024-05-23] MEDS: ondansetron 2 mg/ML SDV 2 mL 4 MG IVP ×2 (20:05→22:07)
[2024-05-23 20:07] VITALS: RESP 18; O2SAT 99
[2024-05-23] MEDS: morphine 4 mg/mL SDV 1 mL IVP (20:07)
[2024-05-23] MEDS: iohexol 350 mg/mL 500 mL Btl (per mL) IV (20:15)
[2024-05-23 20:20] LABS: Basophils # 0.1 10^3/uL (0.0-0.1); Basophils % 0.6 %; Eosinophils # 0.3 10^3/uL (0.0-0.8); Eosinophils % 2.5 %; Hematocrit 39.8 % (37-53); Lymphocytes # 1.5 10^3/uL (0.8-4.8); Lymphocytes % 15.1 %; Mean Corpuscular HGB Conc 32.2 g/dL (30-55); Mean Corpuscular Volume 90.2 fl (82-101); Mean Platelet Volume 9.4 fL (7.4-10.4); Monocytes # 0.6 10^3/uL (0.2-0.9); Monocytes % 6.3 %; Neutrophils # 7.56 10^3/uL (1.8-7.7); Neutrophils % 75.3 %; Nucleated Red Blood Cells % 0 %; Platelet Count 329 10^3/cmm (157-399); Red Blood Count 4.41 10^6/uL (3.85-5.65); Red Cell Distribution Width 14.9 % (12.1-15.1); White Blood Count 10.04 10^3/uL (3.29-11.43)
[2024-05-23 20:23] LABS: Erythrocyte Sedimentation Rate 12 mm/hr (0-10)
[2024-05-23 20:50] LABS: Alanine Aminotransferase 14 U/L (0-41); Albumin Level 4.4 g/dL (3.5-5.2); Alkaline Phosphatase 88 U/L (40-130); Anion Gap 15.1 (5-19); Aspartate Amino Transferase 16 U/L (0-40); Blood Urea Nitrogen 18 mg/dL (6-20); C Reactive Protein 7.6 mg/L (0.0-4.9); Calcium 8.8 mg/dL (8.5-10.5); Carbon Dioxide 24 mmol/L (22-29); Chloride 102 mmol/L (98-107); Creatinine Clr Calc Pharmacy 117.9278; Globulin 2.8 g/dL (1.3-4.6); Glomerular Filtration Rate 102.7 mL/min (90-130); Glucose 88 mg/dL (65-115); Osmolality Calculated 285 mOsm/kg (285-295); Potassium 4.1 mmol/L (3.5-5.1); Sodium 137 mmol/L (136-145); Total Bilirubin 0.3 mg/dL (0.15-1.2); Total Protein 7.2 g/dL (6.6-8.7)
[2024-05-23] MEDS: clindamycin 600 MG/50 ML PREMIX 100 MG IV (21:11)
[2024-05-23 22:08] VITALS: RESP 16; O2SAT 100
[2024-05-23] MEDS: fentaNYL 50 mcg/mL INJ 2mL 150 MCG IVP (22:08)
[2024-05-23] MEDS: lidocaine-epi 1% 20 mL INJ INJECTION (22:12)
[2024-05-23 22:30] VITALS: BP 117/69; PULSE 77; O2SAT 99
[2024-05-23 22:39] VITALS: BP 116/74; PULSE 79; O2SAT 99
== END 2024-05-23 22:41 | disposition home or self-care (01) ==
PROVIDERS: Emergency Provider Emergency Medicine
DX: L02.31 Cutaneous abscess of buttock (principal); L03.317 Cellulitis of buttock; Z72.0 Tobacco use
CPT/HCPCS: 10060; 72193; 80053; 85025; 85651; 86140; 96365; 96375; 96376; 99285; J2270; J2405; J3010; J3490